=== PATIENT | female | born 1965 | race Caucasian/White ===

== ENCOUNTER → 2016-04-04 | Outpatient (CLI) | payer OTHER ==
[~2016-04-04] MED LIST: CHOL1TAB2 PO; CYAN10005 PO; IBUP600T44 PO; LINA1CAP PO; METH500T37 PO; PHEN-601 PO; TAMO20TA47 PO
--- NOTE | 2016-04-04 17:09 | MAMMOGRAPHY REPORT ---
BILATERAL DIGITAL DIAGNOSTIC MAMMOGRAM TOMOSYNTHESIS WITH CAD AND TARGETED RIGHT ULTRASOUND: 04/04/19 17 CLINICAL HISTORY: History of left breast cancer status post lumpectomy. The patient also reports an episode of bloody nipple discharge from the right nipple, which she noticed in the shower one month ago. She has not had any further episodes since then. She denies any palpable lumps. TECHNIQUE: Breast tomosynthesis in addition to standard 2D mammography was performed. Current study was also evaluated with a Computer Aided Detection (CAD) system. Bilateral CC and MLO 2-D and foreign synthesis views and bilateral spot magnification CC and ML views were obtained. COMPARISON: Comparison is made to exams dated: 10/03/2015 mammogram, 09/25/2013 mammogram, 10/28/2014 mammogram, 09/20/2011 mammogram, 09/23/2012 mammogram, and 09/19/2010 mammogram - [facility]. BREAST COMPOSITION: There are scattered areas of fibroglandular density in both breasts. FINDINGS: Again noted are post surgical changes in the left 6:00 breast from prior lumpectomy, incl uding stable density and architectural distortion at the lumpectomy bed. Spot magnification views o f the lumpectomy bed demonstrate a new single coarse calcification at the lumpectomy bed, which like ly represents a dystrophic calcification. A few other punctate benign-appearing calcifications are seen scattered within the left breast. Spot magnification views of the right subareolar breast demo nstrate no suspicious masses or calcifications. The remainder of both breasts are stable compared t o prior exams, without suspicious masses, calcifications, or areas of architectural distortion noted . A linear scar marker denotes a scar on the right 12:00 anterior breast. Small round/oval circums cribed benign-appearing masses in the right breast are stable compared to prior exams, and likely re present cysts. Targeted ultrasound was performed of the right subareolar breast. No intraductal mass or other susp icious sonographic abnormality is evident. A few incidental small anechoic benign simple cysts were seen, including a 3 mm cyst in the right 10:00 subareolar breast and a 4 mm cyst in the right 4:00 subareolar breast. IMPRESSION: ACR-BI-RADS CATEGORY 3: PROBABLY BENIGN, TARGETED ULTRASOUND ACR-BI-RADS CATEGORY 3: MT OBABLY BENIGN 1. Post surgical changes in the left 6:00 breast from prior lumpectomy. A new single coarse calcif ication is seen at the lumpectomy bed which is probably benign and likely represents a dystrophic ca lcification. Recommend follow-up diagnostic mammograms of the left breast in [address] ability. 2. No intraductal mass or other mammographic or sonographic abnormality is seen to explain the one episode of bloody right nipple discharge. Recommend clinical follow-up; if the discharge persists, consider surgical consultation versus bilateral breast MRI for further evaluation. The patient has been verbally notified of the results. Approximately 10% of breast cancers are not detected with mammography. A negative mammographic repor t should not delay biopsy if a clinically suggestive mass is present. Genesis Joseph M.D. ah/:04/04/2016 15:26:33 Business Continuity Management Director: Michael DIAZ)(Raul), [facility] letter sent: Personal History 3 BI-RADS Code: ACR-BI-RADS Category 3: Probably Benign Ultrasound BI-RADS: ACR-BI-RADS Category 3: P robably Benign
== END | disposition home or self-care (01) ==
LOC: C.MAMM 13:51
PROVIDERS: ATTEND Surgery
DX: Z08 Encounter for follow-up examination after completed treatment for malignant neoplasm (principal); Z85.3 Personal history of malignant neoplasm of breast; Z98.890 Other specified postprocedural states; R92.1 Mammographic calcification found on diagnostic imaging of breast

== ENCOUNTER → 2016-10-02 | Outpatient (CLI) | payer OTHER ==
--- NOTE | 2016-10-02 15:51 | MAMMOGRAPHY REPORT ---
UNILATERAL LEFT DIGITAL DIAGNOSTIC MAMMOGRAM TOMOSYNTHESIS WITH CAD: 10/02/2016 CLINICAL HISTORY: 51 year-old woman with a personal history of left breast cancer status post breast conservation treatment. TECHNIQUE: Left breast CC and MLO 2D and tomosynthesis images, spot magnification CC and ML views we re obtained. Current study was also evaluated with a Computer Aided Detection (CAD) system. COMPARISON: Comparison is made to exams dated: 04/04/2016 ultrasound, 04/04/2016 mammogram, 10/03/2015 mammogram, 09/29/2014 mammogram, 09/25/2013 mammogram, and 09/23/2012 mammogram - [facility]. BREAST COMPOSITION: The tissue of the left breast is almost entirely fatty. FINDINGS: There is expected architectural distortion in the 6:00 middle one third of the left breast, at the site of prior lumpectomy. Currently, there are 3 microcalcifications near the surgical site. The largest coarse calcification along the posterior aspect of the distortion is stable compared to the prior spot magnification views performed on 04/04/2016. 2 new faint punctate microcalcification s are currently identified. However, the morphology is different from the patient's biopsy proven ca ncer. These calcifications are most likely dystrophic, but another short interval follow-up diagnost ic mammogram including spot magnification views is recommended to ensure longer stability. No other new suspicious mass, architectural distortion, developing asymmetry or microcalcifications are seen i n the left breast. IMPRESSION: ACR-BI-RADS CATEGORY 3: PROBABLY BENIGN Expected post treatment changes in the left breast, with 3 benign-appearing round and punctate microc alcifications near the surgical site. These are most likely dystrophic, but given 2 of calcification s are new compared to prior exams, a short interval follow-up diagnostic mammogram including spot mag nification views is recommended to ensure stability in 6 months. Annual right mammography will also be due at that time. These results and recommendations were discussed with the patient at the time of the exam. Approximately 10% of breast cancers are not detected with mammography. A negative mammographic report should not delay biopsy if a clinically suggestive mass is present. Edith Byrne M.D. ay/:10/02/2016 15:07:41 Hospice Plan Administrator: Lina FERGUSON(Erlin)(M), [facility] letter sent: Follow Up Recommended 3 BI-RADS Code: ACR-BI-RADS Category 3: Probably Benign
== END | disposition home or self-care (01) ==
LOC: C.MAMM 13:46
PROVIDERS: ATTEND Surgery
DX: R92.0 Mammographic microcalcification found on diagnostic imaging of breast (principal)

== ENCOUNTER → 2016-10-30 | Outpatient (CLI) | payer OTHER ==
[2016-10-30 13:55] VITALS: BP 114/74; PULSE 94; TEMP 37; O2SAT 97
--- NOTE | 2016-10-30 17:10 | Radiation Oncology Follow-Up ---
Radiation Oncology Follow-Up Date of Visit Oct 30, 2016. Reason For Visit Annual follow-up Radiation Completion Date finished 04-01-2015 Diagnosis (1) Breast cancer Status: Resolved Onset Date: 10/28/2014 Histology Subtype: ductal Stage: l Permanent Comment: DIAGNOSIS: Left breast, invasive ductal carcinoma, grade 2, ER/NM positive, Her2 negative, [id number], stage IA Abnormal left breast mammogram 09/29/2014 Status post stereotactic biopsy 10/28/2014 Status post wide local excision 12/01/2014 Status post sentinel lymph node biopsy 12/28/2014 Status post completion of radiation therapy 04/01/2015 received 6640 cGy Last Edited By: Sadaf Kumar on Apr 14, 2015 10:38 History of Present Illness Ms Cavazos is a 49-year-old female who initially had an abnormal mammogram on which showed a faint cluster of microcalcifications in the 6 o'clock position, middle one third of the left breast. She underwent a unilateral left diagnostic mammogram and ultrasound on 10/13/2014 which showed a 1 cm group of punctate and amorphous calcifications in the left breast at 6:00. She underwent a stereotactic biopsy on 10/28/2014 which revealed lobular carcinoma in situ and microcalcifications. She underwent a wide local excision on 12/01/2014 to rule out any evidence of cancer; surprisingly, pathology revealed a 1.5 mm invasive ductal carcinoma that was grade 2. Pathology revealed no evidence of lymphovascular space invasion however there was ductal carcinoma in situ measuring at least 6 mm. The margins were negative with the closest margin for invasive ductal carcinoma being 2 mm and the closest margin for ductal carcinoma in situ being [address] Campo took the patient back to the OR on 12/28/2014 for sentinel lymph node biopsy which revealed no evidence of metastatic breast cancer to the lymph nodes. Dr. Campo has ordered Prosigna study which Could not be performed due to insufficient amount of tissue. The patient is also being referred to Dr. Delgadillo regarding hormonal therapy and potentially chemotherapy. We are now seeing the patient in consultation regarding the role of adjuvant radiation therapy. She did not require chemotherapy. He completed radiation therapy 04/01/2015 and received 6640 cGy Interim History She's been doing well over this past year. She denies any changes to her breast. She is noted no masses or tenderness no change in the axilla. She's had no swelling of her arm. She is up-to-date on mammography. She had been tried on 2 anti-estrogen therapy medications. These unfortunately had side effects. She had nausea. She had associated joint pain and discomfort. She also had hot flashes. Decision was made to stop antiestrogen therapy. Allergies Coded Allergies: Anastrozole (Unverified Allergy, Intermediate, fingers and feet edema rash , 11/02/15) Tamoxifen (Verified Allergy, Intermediate, SHORTNESS OF BREATH, 10/30/16) swelling of hands and feet , and nausea Codeine (Unverified Allergy, Mild, Nausea/vomiting, 01/18/15) Home Medications Scheduled Cholecalciferol (Vitamin D-3), 1,000 PO DAILY Cyanocobalamin (Vitamin B-12), 1,000 MCG PO DAILY Linaclotide (Linzess), 1 TAB PO DAILY Scheduled PRN Ibuprofen (Motrin), 600 MG PO TID PRN for Pain Methocarbamol (Robaxin), 500 MG PO TID PRN for Muscle Spasms Phenylephrine W/ Acetaminophen (Tylenol Sinus Congestion), 1-2 TAB PO Q6H PRN for Nasal Congestion Review of Systems Gastrointestinal: Symptoms: Constipation GI Comments: "chronic constipation takes meds " Oral: Symptoms: No Problems Respiratory: Symptoms: SOB At Rest, SOB With Exertion Other Respiratory: " occ has trouble taking a deep breath " Urinary: Symptoms: WNL Skin: Symptoms: No Problems Other Skin Symptoms: slight discoloration - darker Breast: Right Upper Arm Measurement: 36.5 Right Mid Arm Measurement: 29.0 Right Wrist Measurement: 17.0 Left Upper Arm Measurement: 35.5 Left Mid Arm Measurement: 27.5 Left Wrist Measurement: 16.8 Arm Dominence: Right Patient Cosmetic Evaluation: Excellent Staff Cosmetic Evalaluation: Excellent Physical Exam Vital Signs Date Time Temp Pulse Resp B/P (MAP) Pulse Ox O2 Delivery O2 Flow Rate FiO2 10/30/16 13:55 37.0 94 16 114/74 97 Pain: Pain Onset: 6-7 months ago Pain Duration: intermet Side: Right Pain Location: Breast Patient Pain Scale: 0 - 10 Initial Pain Intensity: 5.0 Pain Description: Radiating Additional Comments: gets worse at times Fatigue: None General Appearance: no apparent distress Eyes: normal inspection, EOMI ENT: normal ENT inspection, hearing grossly normal Neck: no adenopathy, thyroid normal Respiratory/Chest: lungs clear, no respiratory distress, no accessory muscle use (6) Cardiovascular: regular rate, rhythm, no gallop, no murmur Extremities: non-tender Neurologic/Psychiatric: no motor/sensory deficits, alert, normal mood/affect Skin: warm/dry Additional Studies Patient: AMARILIS CAVAZOS [facility] Rec: [id number] Address1: [address] Address2: Acct ID: [id number] Date: 1965 Sex: F Ref Phy: Vanessa Rebollar D.O. Att Phy: Snehal Campo MD Rabia Phy: Vanessa Rebollar D.O. Inter Phy: Edith Byrne MD [facility] Zip: [place] [address] SC: C.MAMM Report #: [id number] Workers Compensation Claims Assistant: SUMAYA Diagnosis: 6 MO F/U Service Date: 10/02/16 MNE: [id number] Ordering Dr: Snehal Campo MD CC: Snehal Campo MD CONF: DICTATED BY: Edith Byrne MD MAMMOGRAPHY REPORT UNILATERAL LEFT DIGITAL DIAGNOSTIC MAMMOGRAM TOMOSYNTHESIS WITH CAD: 10/02/2016 CLINICAL HISTORY: 51 year-old woman with a personal history of left breast cancer status post breast conservation treatment. TECHNIQUE: Left breast CC and MLO 2D and tomosynthesis images, spot magnification CC and ML views were obtained. Current study was also evaluated with a Computer Aided Detection (CAD) system. COMPARISON: Comparison is made to exams dated: 04/04/2016 ultrasound, 04/04/2016 mammogram, 10/03/2015 mammogram, 09/29/2014 mammogram, 09/25/2013 mammogram, and mammogram - [facility]. BREAST COMPOSITION: The tissue of the left breast is almost entirely fatty. FINDINGS: There is expected architectural distortion in the 6:00 middle one third of the left breast, at the site of prior lumpectomy. Currently, there are 3 microcalcifications near the surgical site. The largest coarse calcification along the posterior aspect of the distortion is stable compared to the prior spot magnification views performed on 04/04/2016. 2 new faint punctate microcalcifications are currently identified. However, the morphology is different from the patient's biopsy proven cancer. These calcifications are most likely dystrophic, but another short interval follow-up diagnostic mammogram including spot magnification views is recommended to ensure longer stability. No other new suspicious mass, architectural distortion, developing asymmetry or microcalcifications are seen in the left breast. IMPRESSION: ACR-BI-RADS CATEGORY 3: PROBABLY BENIGN Expected post treatment changes in the left breast, with 3 benign-appearing round and punctate microcalcifications near the surgical site. These are most likely dystrophic, but given 2 of calcifications are new compared to prior exams , a short interval follow-up diagnostic mammogram including spot magnification views is recommended to ensure stability in 6 months. Annual right mammography will also be due at that time. These results and recommendations were discussed with the patient at the time of the exam. Approximately 10% of breast cancers are not detected with mammography. A negative mammographic report should not delay biopsy if a clinically suggestive mass is present. Edith Byrne M.D. ay/:10/02/2016 15:07:41 It Help Desk Manager: Lina DIAZ)(Raul), [facility] letter sent: Follow Up Recommended 3 BI-RADS Code: ACR-BI-RADS Category 3: Probably Benign Dictated by: Edith Byrne MD Signed by: Edith Byrne MD Assessment & Plan Plan: The patient was seen and examined by Dr. Singer. Continue with mammography. She has a mammogram scheduled for March. Continue regular follow-up with Dr. Delgadillo, Dr. Campo, and Dr. Rebollar. We asked her to return to our office in 1 year. She may call she has a questions or concerns in the interim. ADDENDUM: I agree with note created by Sadaf Kumar PA-C. I reviewed the patient's chart and information with her. I have examined and evaluated the patient. I reviewed relevant clinical information and answered the patient's and /or family's questions. COLLECTION CORRESPONDENT Total Time In Follow-Up I spent 20 minutes speaking to the patient and performing examination. I spent 15 minutes reviewing information and completing this note. AK I spent 15 minutes examining and counseling the patient. COLLECTION CORRESPONDENT Copy To Snehal Campo MD; Vanessa Rebollar D.O.; Remington Delgadillo M.D. Problem Qualifiers (1) Breast cancer: Breast location: central portion of breast Estrogen receptor status: positive Patient sex: female Laterality: left Qualified Codes: C50.112 - Malignant neoplasm of central portion of left female breast; Z17.0 - Estrogen receptor positive status [ER+]
== END | disposition home or self-care (01) ==
LOC: C.ONC 13:49
PROVIDERS: ATTEND Physician Assistant Medical
DX: Z08 Encounter for follow-up examination after completed treatment for malignant neoplasm (principal); Z92.3 Personal history of irradiation; Z85.3 Personal history of malignant neoplasm of breast

== ENCOUNTER → 2017-04-04 | Outpatient (CLI) | payer OTHER ==
[~2017-04-04] MED LIST changes: -TAMO20TA47 PO
--- NOTE | 2017-04-05 13:25 | MAMMOGRAPHY REPORT ---
BILATERAL DIGITAL DIAGNOSTIC MAMMOGRAM TOMOSYNTHESIS WITH CAD: 04/04/2017 CLINICAL HISTORY: History of left breast cancer status post lumpectomy. The patient presents for fol low-up of left breast calcifications at the surgical bed. Due for routine mammography of the right b reast. The patient reports no current complaints. TECHNIQUE: Breast tomosynthesis in addition to standard 2D mammography was performed. Current study was also evaluated with a Computer Aided Detection (CAD) system. Bilateral CC and MLO 2-D and tomosy nthesis images and spot magnification left CC and ML views were obtained. COMPARISON: Comparison is made to exams dated: 10/02/2016 mammogram, 04/04/2016 ultrasound, 04/04/2016 mammogram, 10/03/2015 mammogram, 10/28/2014 mammogram, and 10/28/2014 stereotactic biopsy - [facility]. BREAST COMPOSITION: The tissue of both breasts is almost entirely fatty. FINDINGS: Again noted are postsurgical changes in the left 6:00/central breast from prior lumpectomy, including density and architectural distortion at the lumpectomy bed. Spot magnification views of t he lumpectomy bed demonstrate a few coarse clearly benign dystrophic calcifications at the surgical b ed, as well as other faint punctate benign-appearing calcifications scattered within the lumpectomy b ed which are probably benign and likely represent dystrophic calcifications from fat necrosis. No villarreal spicious cluster of microcalcifications is seen. The remainder of both breasts are stable compared to prior exams, without suspicious masses, calcific ations, or areas of architectural distortion noted. A linear scar marker denotes a scar on the right rest. Small circumscribed benign-appearing right breast masses are not significantly changed. IMPRESSION: ACR-BI-RADS CATEGORY 3: PROBABLY BENIGN Coarse and punctate benign-appearing calcifications at the lumpectomy bed are probably benign and lik krishna represent dystrophic calcifications from fat necrosis. Recommend follow-up diagnostic tomosynthe sis mammograms of the left breast in 6 months to reevaluate. The patient has been verbally notified of the results. Approximately 10% of breast cancers are not detected with mammography. A negative mammographic report should not delay biopsy if a clinically suggestive mass is present. Genesis Joseph M.D. /:04/04/2017 14:11:37 [employer]at [employer] Operator: Alma Cabello, [facility] letter sent: Follow Up Recommended 3 BI-RADS Code: ACR-BI-RADS Category 3: Probably Benign
== END | disposition home or self-care (01) ==
LOC: C.MAMM 13:40
PROVIDERS: ATTEND Surgery
DX: R92.1 Mammographic calcification found on diagnostic imaging of breast (principal); Z85.3 Personal history of malignant neoplasm of breast

== ENCOUNTER → 2017-10-07 | Outpatient (CLI) | payer OTHER ==
--- NOTE | 2017-10-07 15:43 | MAMMOGRAPHY REPORT ---
UNILATERAL LEFT DIGITAL DIAGNOSTIC MAMMOGRAM TOMOSYNTHESIS WITH CAD: 10/07/2017 CLINICAL HISTORY: 52-year-old woman with a personal history of left breast cancer status post treatme nt presents for continued close follow-up in the left breast given round microcalcifications near the surgical site. TECHNIQUE: Left CC and MLO 2D and tomosynthesis images; spot magnification left CC and ML views were obtained. Current study was also evaluated with a Computer Aided Detection (CAD) system. COMPARISON: Comparison is made to exams dated: 04/04/2017 mammogram, 10/02/2016 mammogram, 04/04/2016 m ammogram, 10/03/2015 mammogram, 10/28/2014 mammogram, and 10/13/2014 mammogram - [facility] nt. BREAST COMPOSITION: The tissue of left breast is almost entirely fatty. FINDINGS: The breast parenchyma is increasingly fatty replaced comparing to the 2014 and prior mammog keila. There is also decreased nodularity of the left breast. There is expected architectural distor tion and density in the 6:00 posterior left breast, representing the surgical scar from prior lumpect savage. Spot magnification views performed over the surgical site demonstrate approximately 6 punctate and round microcalcifications that appears similar to the prior spot magnification views and are mini art increased in number comparing back to the 2017 spot magnification views, most likely represent dystrophic calcification/fat necrosis. When comparing to the magnified views of the malignant calcif ications, the morphology is different and these calcifications are most likely benign. However, anot her six-month follow-up left diagnostic mammogram including spot magnification views is recommended t o ensure longer stability. Annual right mammography will also be due at that time. No other new sharda picious calcifications, masses, asymmetries or unexpected architectural distortion is identified in t he left breast. IMPRESSION: ACR-BI-RADS CATEGORY 3: PROBABLY BENIGN There is no definite mammographic evidence of malignancy in the left breast. A few round and punctat e calcifications near the lumpectomy site in the 6:00 posterior left breast most likely represent srikanth ign dystrophic calcifications and fat necrosis. However, another short interval follow-up left diagn ostic mammogram including spot magnification views is recommended to ensure longer stability. Annual right mammography will also be due at that time. These results and recommendations were discussed with the patient at the time of the exam. She tenta tively scheduled the follow-up appointment prior to leaving our department. Some breast cancers are not detected with mammography. A negative mammographic report should not david y biopsy if a clinically suggestive mass is present. Edith Byrne M.D. ay/:10/07/2017 10:05:44 Education Technician: RT Jose Antonio(R)(M), [facility] letter sent: Follow Up Recommended 3 BI-RADS Code: ACR-BI-RADS Category 3: Probably Benign
== END | disposition home or self-care (01) ==
LOC: C.MAMM 08:50
PROVIDERS: ATTEND Surgery
DX: R92.1 Mammographic calcification found on diagnostic imaging of breast (principal)

== ENCOUNTER 2023-02-07 18:30 | Observation (INO) ==
[2023-02-07 21:44] LABS: Appearance Urine Clear (Clear); Bilirubin Urine Negative (Negative); Blood Urine Negative (Negative); Color Urine Yellow; Glucose Urine UA Negative (Negative); Ketones Urine 3+ (Negative); Leukocyte Esterase Urine Negative (Negative); Nitrite Urine Negative (Negative); Protein Urine Negative (Negative); Specific Gravity Urine 1.017 (1.000-1.030); Urobilinogen Urine Negative (Negative)
[2023-02-07 22:03] LABS: Basophils # (auto) 0.05 K/uL (0.00-0.20); Basophils % (auto) 0.5 %; Eosinophils # (auto) 0.18 K/uL (0.00-0.50); Eosinophils % (auto) 1.7 %; Hemoglobin 14.8 g/dl (12.0-16.0); Immature Granulocytes # (auto) 0.05 K/uL (0.01-0.20); Immature Granulocytes % (auto) 0.5 %; Lymphocytes # (auto) 1.78 K/uL (1.20-3.40); Mean Corpuscular Hemoglobin 28.7 pg (25.0-34.0); Mean Corpuscular Hgb Conc 34.4 g/dL (32.0-36.0); Mean Corpuscular Volume 83.5 fL (80.0-100.0); Mean Platelet Volume 11.8 fL (9.4-12.4); Monocytes % (auto) 6.7 %; Neutrophils # (auto) 7.68 K/uL (1.40-6.50); Neutrophils % (auto) 73.6 %; Platelet Count 283 K/uL (130-400); RDW Coefficient of Variation 13.7 % (11.5-14.5); RDW Standard Deviation 41.7 fL (36.4-46.3); Red Blood Count 5.15 M/uL (4.20-5.40); White Blood Count 10.44 K/ul (4.8-10.8)
[2023-02-07 22:04] LABS: Albumin Globulin Ratio 1.7 (0.9-2); Albumin Level 4.5 gm/dl (3.4-5.0); BUN Creatinine Ratio 17.7 (10-20); Bilirubin,Total 0.8 mg/dl (0.2-1.0); Calcium 9.1 mg/dl (8.6-10.3); Est GFR (Non-African American) 100.1 ml/min; Globulin 2.7 gm/dl (2.5-4.0); Potassium 3.7 mmol/L (3.5-5.1); Total Protein 7.2 gm/dl (6.0-8.3)
[2023-02-07] MEDS ORDERED: SODIUM CHLORIDE 0.9% 1,000 ML IV ONE (23:14)
--- NOTE | 2023-02-07 23:18 | Emergency Department Note ---
Impression & Plan Acute cholecystitis ED Provider Note Name: AMARILIS CA Age: 57 Sex: Female Arrives Via: Walk-In Informant: Patient, ED Provider: Ermias Wallace MD Chief Complaint: Right upper quadrant pain Impression: As per impressions above Medical Decision Making: Pleasant 57-year-old female without significant past medical history arrives for evaluation of right upper quadrant pain over the last few days. To the point where she is having no appetite. Has significant right upper quadrant tenderness palpation though she is declining any strong pain medications though excepted IV Tylenol. Notes pain worse with deep inspiration but she does not have any respiratory distress she is not tachycardic she not hypoxic and she is not at risk for PE DVT. Do not think that CT imaging of the chest is necessary for further evaluation of this right upper quadrant pain. Ultrasound of the right upper quadrant reveals a distended abdomen without clear evidence of cholecystitis. White blood cell count is normal. Unfortunately her exam continues to be concerning for acute cholecystitis. Reviewed with general surgery and plan will be to give some IV antibiotics and monitor overnight. On rechecks patient is slowly feeling improved but continues to still have some right upper quadrant tenderness to palpation. She is able to sleep now though. Given the persistent pain and findings I did discussed with general surgery and they will evaluate her further and plan to take her to the operating room for further evaluation. Triage/Nursing Notes reviewed by Me Differential:Appendicitis, cholecystitis, biliary pathology, pancreatitis, PUD, GERD, PE, dissection, ACS amongst many other pathologies considered Vital Signs: reviewed and remarkable for no significant abnormalities Interventions: Will sign bolus 1 L IV, Mefoxin 2 g IV, Tylenol 1 g IV Labs:ED labs Reviewed by me and remarkable for no significant abnormalities Imaging:As per my informal interpretation a ultrasound of the right upper quadrant reveals a distended gallbladder without significant wall swelling or evidence of stone. Some sludge noted. Confirmed by radiologist see the report for full EKG:As per my interpretation. Indication right upper quadrant pain. Normal sinus rhythm at 90 bpm without ectopy nor ischemia. QTc 428. No previous EKGs for comparison Consults:Dr. Wilhelm of general surgery. Initial discussion via phone plan to monitor throughout the evening. Given persistent pain Dr. Wilhelm reconsulted for further evaluation. Plan: Disposition: Transfer to OR Condition: Good History of Present Illness: 57-year-old female arrives for evaluation of abdominal pain. Patient notes for the last 3 to 4 days gradually worsening right upper quadrant pain. No significant pain with eating but notes she has not had an appetite in the last 1 to 2 days. Denies any fevers, chills, vomiting, back pain, urinary/bowel symptoms, leg swelling, chest pain, shortness of breath or other concerning signs or symptoms. Pain is significantly worse with any movement does note mildly worse with deep inspiration but no respiratory issue otherwise. She did not have any falls, trauma, injuries. She is taken no medication for this. She was seen by acute care today who advised she come to the ER for evaluation. She has no history of gallbladder or appendix issues. She did have a hysterectomy previously. Past Medical History:Breast CA, Depression Home Medications:Bupropion and vitamin D3 Allergies:Nast Sumner and anastrozole, tamoxifen, codeine Vitals:Blood Pressure: 142/88, Pulse 92, RR 18, T 36.5C, O2 97 % on RA Physical Exam: GENERAL: Patient is uncomfortable appearing and in mild distress. Dehydrated appearing RESPIRATORY: No dyspnea. Clear to auscultation and equal bilaterally. CARDIOVASCULAR: Regular rate and rhythm.No murmur appreciated. GASTROINTESTINAL: Moderate right upper quadrant tenderness palpation no peritonitis EXTREMITIES: Normal motion all extremities, no cyanosis, no edema. NEUROLOGIC: Alert and oriented. No focal neurologic deficits appreciated SKIN: No rash, no jaundice, no diaphoresis. PSYCH: Appropriate GCS: 15 ED Course: Times/Reassessments: Observation note: Indication: Abdominal Pain Placed in Observation: 11p on 02/07/23. Observation was necessary in order to perform serial abdominal exams in the setting of acute right upper quadrant pain but unclear workup. History as above in HPI. Discharged from observation to OR at 6a on 02/08/23. Total Observation Time: 7 hrs. Ermias Wallace MD Past Med/Surg History Medical History Pityriasis lichenoides chronica Malignant neoplasm of central portion of left breast in female, estrogen receptor positive (10/28/14) Social History Smoking Status: Never smoker Preferred Language: Frisian Beliefs That Will Affect Care: None Feels Safe at Home: Yes Allergies Allergies Allergy/AdvReac Type Severity Reaction Status Date / Time anastrozole Allergy Intermediate fingers Verified 02/08/23 02:12 and feet edema rash tamoxifen Allergy Intermediate SHORTNESS Verified 02/08/23 02:12 OF BREATH codeine Allergy Mild Nausea/vomi Verified 02/08/23 02:12 ting Home Meds Home Medications Medication Instructions Recorded Confirmed cholecalciferol (vitamin D3) 50 2,000 units PO DAILY 11/05/18 02/08/23 mcg (2,000 unit) capsule erythromycin 500 mg tablet 500 mg PO AMHS 02/08/23 02/08/23 losartan 50 mg tablet 50 mg PO QAM 02/08/23 02/08/23 multivitamin with minerals 1 tab PO DAILY 02/08/23 02/08/23 (Multiple Vitamin-Minerals tablet) vitamin B complex 1 tab PO QAM 02/08/23 02/08/23 Previous Rx's Medication Instructions Recorded oxycodone-acetaminophen 5 mg-325 1 - 2 tab PO .P5p-N4g PRN pain #7 02/08/23 mg tablet tabs Results & Data (ED) Vital Signs Vital Signs - 24 hr 02/07/23 23:06 02/08/23 00:45 02/08/23 02:44 Pulse Rate Pulse Rate [Right Finger] 92 H 86 79 Pulse Rate from SpO2 Sensor Respiratory Rate 18 16 18 Respiratory Effort / Characteristics Non-Labored Non-Labored Non-Labored Respiratory Depth Normal Normal Normal Respiratory Pattern Blood Pressure Blood Pressure [Right Arm] 142/88 H 158/94 H 147/96 H Blood Pressure Mean Blood Pressure Mean [Right Arm] 106 115 113 Blood Pressure Position [Right Arm] Lying Lying Lying Pulse Oximetry 97 98 97 Oxygen Delivery Method Room Air Room Air Room Air 02/08/23 04:00 02/08/23 05:00 02/08/23 06:00 Pulse Rate 76 Pulse Rate [Right Finger] 74 76 Pulse Rate from SpO2 Sensor Respiratory Rate 20 18 Respiratory Effort / Characteristics Non-Labored Non-Labored Respiratory Depth Normal Normal Respiratory Pattern Regular Regular Blood Pressure Blood Pressure [Right Arm] 113/79 145/80 H Blood Pressure Mean Blood Pressure Mean [Right Arm] 90 101 Blood Pressure Position [Right Arm] Pulse Oximetry 92 98 Oxygen Delivery Method Room Air Room Air 02/08/23 06:00 02/08/23 07:38 Pulse Rate 74 77 Pulse Rate [Right Finger] Pulse Rate from SpO2 Sensor 77 Respiratory Rate 17 16 Respiratory Effort / Characteristics Respiratory Depth Respiratory Pattern Blood Pressure 138/74 149/88 H Blood Pressure [Right Arm] Blood Pressure Mean 95 108 Blood Pressure Mean [Right Arm] Blood Pressure Position [Right Arm] Pulse Oximetry 94 96 Oxygen Delivery Method Room Air Laboratory Data 02/07/23 21:01 02/07/23 21:01 Lab Results 02/07/23 Range/Units 21:01 WBC 10.44 (4.8-10.8) K/ul RBC 5.15 (4.20-5.40) M/uL Hgb 14.8 (12.0-16.0) g/dl Hct 43.0 (37.0-47.0) % MCV 83.5 (80.0-100.0) fL MCH 28.7 (25.0-34.0) pg MCHC 34.4 (32.0-36.0) g/dL RDW Std Deviation 41.7 (36.4-46.3) fL RDW Coeff of Katie 13.7 (11.5-14.5) % Plt Count 283 (130-400) K/uL MPV 11.8 (9.4-12.4) fL Immature Gran % (Auto) 0.5 % Neut % (Auto) 73.6 % Lymph % (Auto) 17.0 % Coffey % (Auto) 6.7 % Eos % (Auto) 1.7 % Baso % (Auto) 0.5 % Neut # (Auto) 7.68 H (1.40-6.50) K/uL Lymph # (Auto) 1.78 (1.20-3.40) K/uL Coffey # (Auto) 0.70 H (0.11-0.59) K/uL Eos # (Auto) 0.18 (0.00-0.50) K/uL Baso # (Auto) 0.05 (0.00-0.20) K/uL Immature Gran # (Auto) 0.05 (0.01-0.20) K/uL Sodium 137 (136-145) mmol/L Potassium 3.7 (3.5-5.1) mmol/L Chloride 102 (98-107) mmol/L Carbon Dioxide 23 (21-32) mmol/L Anion Gap 12 H (3-11) BUN 11 (6-23) mg/dl Creatinine 0.62 (0.6-1.2) mg/dl Est Cr Clr Drug Dosing 108.0 ml/min Est GFR ( Amer) 116.0 ml/min Est GFR (Non-Af Amer) 100.1 ml/min BUN/Creatinine Ratio 17.7 (10-20) Glucose 86 (70-99(Fasting)) mg/dl Calcium 9.1 (8.6-10.3) mg/dl Total Bilirubin 0.8 (0.2-1.0) mg/dl AST 17 (13-39) U/L ALT 22 (7-52) U/L Alkaline Phosphatase 67 (34-104) U/L Total Protein 7.2 (6.0-8.3) gm/dl Albumin 4.5 (3.4-5.0) gm/dl Globulin 2.7 (2.5-4.0) gm/dl Albumin/Globulin Ratio 1.7 (0.9-2) Lipase 6 L (11-82) U/L Urine Color Yellow Urine Appearance Clear (Clear) Urine pH 5.0 (4.5-7.5) Ur Specific [place] 1.017 (1.000-1.030) Urine Protein Negative (Negative) Urine Glucose (UA) Negative (Negative) Urine Ketones 3+ H (Negative) Urine Blood Negative (Negative) Urine Nitrite Negative (Negative) Urine Bilirubin Negative (Negative) Urine Urobilinogen Negative (Negative) Ur Leukocyte Esterase Negative (Negative) Administered Medications Discontinued Medications Bupivacaine HCl/Epinephrine Bitart (Bupivacaine/Epinephrine 0.5% Mpf 1:200,000 30 Ml Vial) Confirm Administered Dose 30 ml .ROUTE .STK-MED ONE Stop: 02/08/23 11:51 Last Admin: 02/08/23 12:38 Dose: 15 ml Documented By: MDD Cefazolin Sodium (Cefazolin 2,000 Mg/15 Ml Iv Push) Confirm Administered Dose 2,000 mg IV .STK-MED ONE Stop: 02/08/23 11:49 Last Admin: 02/08/23 11:54 Dose: Not Given Documented By: TDM Fentanyl Citrate (Fentanyl Citrate Pf 100 Mcg/2 Ml Vial) 25 mcg IV Q5M PRN PRN Reason: PACU Use Only-Pain Stop: 02/08/23 21:36 Last Admin: 02/08/23 13:56 Dose: 25 mcg Documented By: Admin: 02/08/23 13:51 Dose: 25 mcg Documented By: Admin: 02/08/23 13:46 Dose: 25 mcg Documented By: Admin: 02/08/23 13:40 Dose: 25 mcg Documented By: MYRIAM Sodium Chloride (Nss) 1,000 mls @ 999 mls/hr IV .Q1H1M ONE Stop: 02/08/23 00:14 Last Infusion: 02/08/23 00:46 Dose: Infused Documented By: Admin: 02/07/23 23:43 Dose: 999 mls/hr Documented By: SANJIV Acetaminophen (Ofirmev) 1,000 mg in 100 mls @ 400 mls/hr IV NOW STA Stop: 02/08/23 02:28 Last Infusion: 02/08/23 02:39 Dose: Infused Documented By: Admin: 02/08/23 02:20 Dose: 400 mls/hr Documented By: SANJIV Cefoxitin Sodium (Mefoxin) 2,000 mg in 60 mls @ 100 mls/hr IV NOW STA Stop: 02/08/23 02:56 Last Infusion: 02/08/23 03:07 Dose: Infused Documented By: ЕЛЕНА Admin: 02/08/23 02:34 Dose: 100 mls/hr Documented By: SANJIV Lactated Ringer's (Lr) 1,000 mls @ 80 mls/hr IV .[id number] JIM Stop: 03/10/23 06:59 Last Admin: 02/08/23 07:37 Dose: 80 mls/hr Documented By: MARK Sodium Chloride (Nss) 1,000 mls @ 125 mls/hr IV .Q8H JIM Stop: 03/10/23 07:44 Last Admin: 02/08/23 09:05 Dose: Not Given Documented By: MARK Cefazolin Sodium (Ancef 2000mg) 2,000 mg in 15 mls @ 3.75 mls/min IV PREOP ONE; Protocol Stop: 02/08/23 11:49 Last Admin: 02/08/23 12:05 Dose: 3.75 mls/min Documented By: TRIPP Oxycodone HCl (Oxycodone Hcl Ir 5 Mg Tab (Immediate Release)) 5 mg PO Q4H PRN PRN Reason: MODERATE Pain (4,5,6) & Pre PT Stop: 02/22/23 13:01 Last Admin: 02/08/23 14:42 Dose: 5 mg Documented By: FELI Imaging Data Radiologist's Impression: Gallbladder Ultrasound 02/07/23 23:14 Exam(s): US GALLBLADDER EXAM: US Abdomen Limited, Gallbladder CLINICAL HISTORY: Right upper quadrant pain. TECHNIQUE: Real-time ultrasound of the right upper quadrant with image documentation. COMPARISON: No relevant prior studies available. FINDINGS: Liver: The liver measures 18.9 cm. There is increased echogenicity of the parenchyma. No mass. Gallbladder: Mildly distended gallbladder is a non-specific. No cholelithiasis. No ultrasound evidence of acute cholecystitis. Common bile duct: The common bile duct is normal measuring 0.4 cm. No stones. No dilation. Pancreas: The pancreatic head and body are within normal limits. The tail is not visualized due to overlying bowel gas. Right kidney: The right kidney is unremarkable measuring 11.7 cm. IMPRESSION: 1. Hepatomegaly and fatty infiltration of the liver. 2. Mildly distended gallbladder is a non-specific. No cholelithiasis. No ultrasound evidence of acute cholecystitis. Electronically signed by: Betina West MD 02/08/23 01:57 AM Discharge Plan Visit Data Chief Complaint: Abdominal Pain Stated Complaint: REF BY [facility], RT SIDE ABDOMINAL PAIN ED Provider: Ermias Wallace Discharge Problem: Acute cholecystitis Discharge Instructions Interventions: ED Discharge Assessment Last Done: 02/08/23 11:01
--- NOTE | 2023-02-08 01:57 | Ultrasound Report ---
Exam(s): US GALLBLADDER EXAM: US Abdomen Limited, Gallbladder CLINICAL HISTORY: Right upper quadrant pain. TECHNIQUE: Real-time ultrasound of the right upper quadrant with image documentation. COMPARISON: No relevant prior studies available. FINDINGS: Liver: The liver measures 18.9 cm. There is increased echogenicity of the parenchyma. No mass. Gallbladder: Mildly distended gallbladder is a non-specific. No cholelithiasis. No ultrasound evidence of acute cholecystitis. Common bile duct: The common bile duct is normal measuring 0.4 cm. No stones. No dilation. Pancreas: The pancreatic head and body are within normal limits. The tail is not visualized due to overlying bowel gas. Right kidney: The right kidney is unremarkable measuring 11.7 cm. IMPRESSION: 1. Hepatomegaly and fatty infiltration of the liver. 2. Mildly distended gallbladder is a non-specific. No cholelithiasis. No ultrasound evidence of acute cholecystitis. Electronically signed by: Betina West MD 02/08/23 01:57 AM
[2023-02-08] MEDS ORDERED: ACETAMINOPHEN 1,000 MG/100 ML VIAL IV STA (02:14)
[2023-02-08] MEDS ORDERED: cefOXitin 2,000 MG/60 ML BAG IV STA (02:21)
[2023-02-08] MEDS ORDERED: LACTATED RINGER'S 1,000 ML IV SCH (07:00)
--- NOTE | 2023-02-08 07:00 | History & Physical Report ---
Date of Service February 08, 2023 Assessment & Plan (1) Abdominal pain: Plan: Patient is a 57 yo female with a PMH of breast CA with lumpectomy and radiation (2014), HTN, PLC that presents to the [facility] ER with c/o right upper quadrant pain that has been present since Saturday. She reports pain has been getting worse over the course of this week which prompted her to seek care. Denies fever, chills , vomiting, and reports pain an 8/10 which can take her breath away with deep inspiration. Previous surgeries include a open hysterectomy at age 24, and breast lumpectomy. Denies taking blood thinners and has not had anything to eat since last night, but did have a sip of water this AM. Instructed to remain NPO. WBC wnl LFT wnl Gallbladder U/S reading no cholelithiasis or acute cholecystitis however given the patients progression of pain over the this past week it was discussed with the patient that she can be discharged on a course of PO antibiotics and be seen as an outpatient next week with Dr. Wilhelm or proceed with a laparoscopic cholecystectomy. The surgical procedure was explained and the risks were reviewed with the patient to include bleeding, infection, risk of injury to other organs, the need for further surgery, . The patient would like to have a cholecystectomy. Keep NPO added to OR schedule for today with Dr. Wilhelm for a laparoscopic cholecystectomy IV fluids for hydration LR @ 80cc/hr IV antiemetic IV antibiotics pt was given Cefoxitin in the ER IV analgesic s as above. still with RUQ ttp. discussed options/risks ( bleeding/infection/bile duct leak/injury/injury to other organs etc....) questions answered. will proceed with antony lilly today. History of Present Illness Chief Complaint: right upper quadrant abdominal pain Primary Care Provider: Vanessa Rebollar DO Patient is a 57 yo female with a PMH of breast CA with lumpectomy and radiation (2014), HTN, PLC that presents to the [facility] ER with c/o right upper quadrant pain that has been present since Saturday. She reports pain has been getting worse over the course of this week which prompted her to seek care. Denies fever, chills , vomiting, and reports pain an 8/10 which can take her breath away with deep inspiration. Previous surgeries include a open hysterectomy at age 24, and breast lumpectomy. Denies taking blood thinners and has not had anything to eat since last night, but did have a sip of water this AM. Instructed to remain NPO. Allergies Allergy/AdvReac Type Severity Reaction Status Date / Time anastrozole Allergy Intermediate fingers Verified 02/08/23 02:12 and feet edema rash tamoxifen Allergy Intermediate SHORTNESS Verified 02/08/23 02:12 OF BREATH codeine Allergy Mild Nausea/vomi Verified 02/08/23 02:12 ting Home Medications Medication Instructions Recorded Confirmed Type cholecalciferol (vitamin D3) 50 2,000 units PO DAILY 11/05/18 02/08/23 History mcg (2,000 unit) capsule erythromycin 500 mg tablet 500 mg PO AMHS 02/08/23 02/08/23 History losartan 50 mg tablet 50 mg PO QAM 02/08/23 02/08/23 History multivitamin with minerals 1 tab PO DAILY 02/08/23 02/08/23 History (Multiple Vitamin-Minerals tablet) vitamin B complex 1 tab PO QAM 02/08/23 02/08/23 History Past Med/Surg History Medical History Pityriasis lichenoides chronica Malignant neoplasm of central portion of left breast in female, estrogen receptor positive (10/28/14) Social History Smoking Status: Never smoker Preferred Language: Yoruba Beliefs That Will Affect Care: None Feels Safe at Home: Yes Review of Systems Constitutional: no fever and no chills Eyes: + corrective lenses Ear, Nose, Mouth, Throat: as per Subjective / HPI Respiratory: no dyspnea Cardiovascular: no chest pain Gastrointestinal: + abdominal pain and + constipation (chr onic IBS); no nausea and no vomiting Genitourinary: no problem reported Musculoskeletal: no muscle weakness Integumentary: PLC takes erythromycin daily BID Neurologic: no confusion and no memory loss Psychiatric: no problem reported Allergy / Immunological: no problem reported Physical Exam Physical Exam: alert oriented pleasant Constitutional: well developed, healthy appearing, cooperative and comfortable; no acute distress Eyes: PERRL, conjunctivae normal, anicteric sclerae ENMT: external ear and nose normal, oropharynx normal Respiratory: normal respiratory effort and able to speak in complete sentences; no respiratory distress Cardiovascular: Rate/Rhythm: regular rate and regular rhythm Heart Sounds: no murmur Gastrointestinal (Abdomen): Inspection/Auscultation: abdomen normal to inspection and normal bowel sounds; abdomen not distended Percussion/Palpation: + abdomen tender, + guarding (palpation to RUQ) and abdomen soft Musculoskeletal: no cyanosis or clubbing, extremities motor strength 5/5 Neurologic: PERRL, EOMI, accommodation nl, no face palsy, no dysarthria Psychiatric: A+Ox3, euthymic affect Results & Data Results & Data Vital Signs (Past 12 Hours) Vital Signs Pulse Pulse Resp BP BP Pulse Ox O2 Del Method 02/08/23 06:00 74 17 138/74 94 Room Air 02/08/23 06:00 76 02/08/23 05:00 76 18 145/80 H 98 Room Air 02/08/23 04:00 74 20 113/79 92 Room Air 02/08/23 02:44 79 18 147/96 H 97 Room Air 02/08/23 00:45 86 16 158/94 H 98 Room Air 02/07/23 23:06 92 H 18 142/88 H 97 Room Air Diagnostic Findings [place], [place] [phone] Ultrasound Report Patient: AMARILIS CA Admit Date: 02/07/23 MR#: [id number] Address1: [address] [place] [address] Acct ID:[id number] Address2: [place] [address] Date: 1965 [facility] Zip: [place] [address] Age: 57 Location: ED Sex: F Room/Bed: Att Phy: Diagnosis: REF BY -[facility], RT SIDE ABDOMINAL PAIN Rabia Phy: Vanessa Rebollar DO Service Date: 02/07/23 Fam Phy: Interpreting [facility] Ordering Phy: Ermias Wallace M.D. cc: ~ Exam(s): US GALLBLADDER EXAM: US Abdomen Limited, Gallbladder CLINICAL HISTORY: Right upper quadrant pain. TECHNIQUE: Real-time ultrasound of the right upper quadrant with image documentation. COMPARISON: No relevant prior studies available. FINDINGS: Liver: The liver measures 18.9 cm. There is increased echogenicity of the parenchyma. No mass. Gallbladder: Mildly distended gallbladder is a non-specific. No cholelithiasis. No ultrasound evidence of acute cholecystitis. Common bile duct: The common bile duct is normal measuring 0.4 cm. No stones. No dilation. Pancreas: The pancreatic head and body are within normal limits. The tail is not visualized due to overlying bowel gas. Right kidney: The right kidney is unremarkable measuring 11.7 cm. IMPRESSION: 1. Hepatomegaly and fatty infiltration of the liver. 2. Mildly distended gallbladder is a non-specific. No cholelithiasis. No ultrasound evidence of acute cholecystitis. Electronically signed by: Betina West MD 02/08/23 01:57 AM Dictated: 02/08/23156 Transcribed: 02/08/23156 PG Care Time/CCT Total # of Minutes Spent Total Time Spent with Patient: Total time spent is greater than 50% in coordination of care (as documented) at patient's floor/unit and/or counseling patient: Coding Level of Care Code 75808 INT INP/OBS CARE 1/40MIN Diagnoses Abdominal pain R10.9
[2023-02-08] MEDS ORDERED: HYDROmorphone INJ 0.5 MG/0.5 ML SYR IM PRN (07:02)
[2023-02-08] MEDS ORDERED: ONDANSETRON INJ 2 MG/ML 2 ML VIAL IV PRN ×2 (07:02→07:32)
--- OUTSIDE RECORDS SUMMARY | 2023-02-08 07:10 | External Medical Summary | Summary of Care ---
Author Name Unknown Organization [facility] Address [address] [place] [address] Phone [phone] Care Team Providers Care Tax Compliance Agent Name Role Phone Smooth Vanessa Raul DO Primary Care Provider [phone] Reason for Visit * Reason Comments Light treatment NBUVB 718 MJ Encounter Details Date Type Department Care Team (Late st Contact Info) Description 01/10/2023 4:00 PM EDT Nurse Only Dermatology [facility] [address] [place] [address] Sp, Nurse Dermatology [address] [place] [address] Light treatment (NBUVB 715 MJ) Allergies Active Allergy Reactions Criticality Noted Date Comments Codeine Nausea/vomiting,Unkn o wn 08/14/2013 Sumatriptan Edema Other Low 12/30/2015 Swelling in joints Morphine And Related 01/16/2001 Nauseated, stomach pain Tamoxifen Edema Other Low 12/30/2015 Swelling in joints, mood swings, rash documented as of this encounter (statuses as of 01/10/2023) Medications Medication Sig Dispensed Refills Start Date End Date Status ibuprofen (MOTRIN) 800 MG TabletIndications:R ight foot pain Take 1 Tab by mouth 3 times a day. 30 Tab 0 11/09/2016 Active Multiple Vitamins-Minerals (THRIVE FOR LIFE WOMENS) TABS Take by mouth. 0 Active Probiotic Product (PROBIOTIC ACIDOPHILUS BIOBEADS) Capsule Take 1 Cap by mouth three times a day with meals. THRIVE brand probiotic 0 Active Neomycin-Bacitracin -Polymyxin (NEOSPORIN ORIGINAL) 3.5-400-5000 OINT Apply topically to affected area. Apply to affected areas 0 Active Vitamin D 50 MCG (2000 UT) Oral Tablet Take 2,000 Units by mouth daily. 0 Active Vitamin B Complex Oral Tablet Take 1 Tablet by mouth in the morning. 0 Active Betamethasone Dipropionate Aug 0.05 % External Cream (Diprolene AF) Apply topically to affected area 2 times a day. Apply to rash/bumps on extremities 50 g 3 12/19/2020 Active lamoTRIgine 150 MG Oral Tablet (LaMICtal) Take 1 Tablet by mouth in the morning. 30 Tablet 1 05/09/2022 Active Additional Information Patient not taking.Reported on 11/26/2022 Erythromycin Base 500 MG Oral TabletIndications:E ncounter for therapeutic drug monitoring Take 1 Tablet by mouth in the morning and 1 Tablet before bedtime. Until gone.. 180 Tablet 3 08/10/2022 Active Losartan Potassium 50 MG Oral Tablet (Cozaar)Indications :HTN, goal below 130/80 Take 1 Tablet by mouth in the morning. 30 Tablet 8 09/14/2022 Active documented as of this encounter (statuses as of 01/10/2023) Active Problems Problem Noted Date Diagnosed Date Elevated hemoglobin 05/07/2022 Nail breaking 09/08/2020 Moderate episode of recurrent major depressive d isorder 08/03/2020 CODEY (generalized anxiety disorder) 08/03/2020 Left knee pain 08/03/2020 Right shoulder pain 08/03/2020 Pityriasis lichenoides chronica 04/21/2019 Prediabetes 02/16/2019 Overview: Per Prediabetes protocol Breast cancer, left 01/24/2015 Cancer Staging:Clinical stage from 01/24/2015:Stage IA(T1a, N0, M0) - Signed by Remington Delgadillo MD on 01/24/2015 Pathologic: Unsigned Irritable bowel syndrome 11/20/2005 documented as of this encounter (statuses as of 01/10/2023) Resolved Problems Problem Noted Date Diagnosed Date Resolved Date 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 Family history of ischemic heart disease 02/25/2004 04/14/2020 ADJ DISORDER W/DEPRES MOOD 05/03/2000 0 04/14/2020 Overview: No psychologist, psychiatrist Female genital symptoms 01/01/200006/2020 Overview: ICD-10 update of inactive term Menopause 06/03/1998 04/14/2020 documented as of this encounter (statuses as of 01/10/2023) Immunizations Name Administration Dates Next Due COVID-19 mRNA, LNP-s, No Pre serve, 2-Dose Series (Moderna) 08/30/2020,08/03/2020 TDAP (age 10 and older)(Boostrix) 10/08/2017 TDAP (age 11 and older)(Adacel) 07/10/2007 Varicella Zoster Vaccine (Adult) 12/30/2015 Zoster Vaccine Recombinant (Shingrix) 07/06/2021 ,04/27/2021 documented as of this encounter Social History Tobacco Use Types Packs/Day Years Used Date Smoking Tobacco: Former Cigarettes 0.5 10 Q uit: 12/13/2014 Smokeless Tobacco: Never Alcohol Use Standard Drinks/Week Comments Yes 0 (1 standard drink = 0.6 oz pur e alcohol) rare PHQ-2 Answer Date Recorded PHQ Adult Total Score 20 05/25/2021 Hunger Vital Sign Answer Date Recorded Worried About Running Out of Food in the Last Ye ar Never true 11/18/2018 Ran Out of Food in the Last Year Never true 11/18/2018 Sex and Gender Information Value Date Recorded Sex Assigned at Not on file Gender Identity Not on file Sexual Orientation Not on file Job Start Date Occupation Industry Not on file Not on file Not on file documented as of this encounter Nursing Notes * Velma Sandoval LPN - 01/10/2023 3:53 PM EDT No skin reaction from previous treatment. Areas of body covered or protected during treatment: face, eyes, and genitals. Narrow Band UVB 707.5 millijoules. Patient receives treatment once weekly. Narrow Band UVB dose to be increased by 100 millijoules each treatment. It's been 15 days since last treatment so I lowered dosage 1/2 of previous treatment. documented in this encounter Plan of Treatment Upcoming Encounters Date Type Department Care Team (Late st Contact Info) Description 01/14/2023 3:30 PM EST Nurse Only Dermatology [facility] [address] [place] [address] Sp, Nurse Dermatology [address] [place] [address] 01/21/2023 4:00 PM EST Nurse Only Dermatology [facility] [address] [place] [address] Sp, Nurse Dermatology [address] [place] [address] 01/28/2023 4:00 PM EST Nurse Only Dermatology [facility] [address] [place] [address] Sp, Nurse Dermatology [address] [place] [address] 02/04/2023 4:00 PM EST Nurse Only Dermatology [facility] [address] [place] [address] Sp, Nurse Dermatology [address] [place] [address] 02/11/2023 4:00 PM EST Nurse Only Dermatology [facility] [address] [place] [address] Sp, Nurse Dermatology [address] [place] [address] 02/18/2023 4:00 PM EST Nurse Only Dermatology [facility] [address] [place] [address] Sp, Nurse Dermatology [address] [place] [address] 02/25/2023 4:00 PM EST Nurse Only Dermatology [facility] [address] [place] [address] Sp, Nurse Dermatology [address] [place] [address] 03/07/2023 4:00 PM EST Nurse Only Dermatology [facility] [address] [place] [address] Sp, Nurse Dermatology [address] [place] [address] 03/14/2023 4:00 PM EST Nurse Only Dermatology [facility] [address] [place] [address] Sp, Nurse Dermatology [address] [place] [address] 03/18/2023 4:00 PM EST Nurse Only Dermatology [facility] [address] [place] [address] Sp, Nurse Dermatology [address] [place] [address] 03/25/2023 4:00 PM EST Nurse Only Dermatology [facility] [address] [place] [address] Sp, Nurse Dermatology [address] [place] [address] 04/01/2023 4:00 PM EST Nurse Only Dermatology [facility] [address] [place] [address] Sp, Nurse Dermatology [address] [place] [address] 04/08/2023 4:00 PM EST Nurse Only Dermatology [facility] [address] [place] [address] Sp, Nurse Dermatology [address] [place] [address] 04/15/2023 4:00 PM EST Nurse Only Dermatology [facility] [address] [place] [address] Sp, Nurse Dermatology [address] [place] [address] 04/22/2023 4:00 PM EST Nurse Only Dermatology [facility] [address] [place] [address] Sp, Nurse Dermatology [address] [place] [address] 04/29/2023 4:00 PM EST Nurse Only Dermatology [facility] [address] [place] [address] Sp, Nurse Dermatology [address] [place] [address] 05/06/2023 4:00 PM EST Nurse Only Dermatology [facility] [address] [place] [address] Sp, Nurse Dermatology [address] [place] [address] 05/13/2023 4:00 PM EST Nurse Only Dermatology [facility] [address] [place] [address] Sp, Nurse Dermatology [address] [place] [address] 05/20/2023 4:00 PM EDT Nurse Only Dermatology [facility] [address] [place] [address] Sp, Nurse Dermatology [address] [place] [address] 05/27/2023 4:00 PM EDT Office Visit Dermatology [facility] [address] [place] [address] Cesar Wallace MD [address] [place] [address] 05/27/2023 4:00 PM EDT Nurse Only Dermatology [facility] [place] [address] [facility] [place] [address] Sp, Nurse Dermatology [address] [facility] [place] [address] Scheduled Procedures Name Priority Associated Diagnoses Date/Ti me COLONOSCOPY FLEXIBLE PROXIMAL DIAGNOSTIC Recall History of colon polyps Health Maintenance Due Date Last Done Comments Hepatitis B (1 of 3 - 3-dose series) 1965 Depression, Most Recent Score >= 10 (will fire each visit until score < 10) 05/26/2021 05/25/2021 HbA1c 10/16/2022 10/16/2021, 11/2020, 01/20/2019 COVID-19 Vaccine ( season) 2022 08/30/2020, 08/03/2020 Influenza Vaccine (FLU shot) (#1) 2022 Mammogram 05/30/2023 05/29/2022, 05/09, 04/18/2020, Additional history exists COLONOSCOPY-EVERY 5 YRS AGES 18-100 01/24/2025 01/25/2020, 01/25/2020, 07/09/2008 Lipid Panel 10/16/2026 10/16/2021, 12/10, 02/03/2014, Additional history exists DTaP,Tdap,and Td Vaccines (3 - Td or Tdap) 10/09/2027 10/08/2017, 07/10/2007 Zoster Vaccines Completed 07/06/2021, 04/11, 12/30/2015 GARDASIL-HPV IMMUNIZATION SERIES Aged Out No longer eligible based on patient's age to complete this topic MENINGOCOCCAL (MENACTRA/MENVEO) Aged Out No longer eligible based on patient's age to complete this topic Pneumococcal Vaccine: Pediatrics (0 to 5 Years) and At-Risk Patients (6 to 64 Years) Aged Out No longer eligible based on patient's age to complete this topic documented as of this encounter Medical Devices Not on filedocumented as of this encounter Visit Diagnoses Diagnosis Pityriasis lichenoides, chronic- Primary Parapsoriasis documented in this encounter Care Teams Tax Compliance Agent Relationship Specialty Start Date End Date Vanessa Rebollar DO [address] [place] [address] PCP - General Family Medicine 11/09/14 documented as of this encounter
--- OUTSIDE RECORDS SUMMARY | 2023-02-08 07:10 | External Medical Summary | Summary of Care ---
Author Name Unknown Organization [facility] Address [address] [facility] [place] [address] Phone [phone] Care Team Providers Care Lead Generator Name Role Phone Smooth Vanessa Raul DO Primary Care Provider [phone] Reason for Visit * Reason Comments Phototherapy NBUVB 921 mj Encounter Details Date Type Department Care Team (Late st Contact Info) Description 01/21/2023 4:00 PM EST Nurse Only Dermatology [facility] [address] [place] [address] Sp, Nurse Dermatology [address] [place] [address] Phototherapy (NBUVB 921 mj) Allergies Active Allergy Reactions Criticality Noted Date Comments Codeine Nausea/vomiting,Unkn o wn 08/14/2013 Sumatriptan Edema Other Low 12/30/2015 Swelling in joints Morphine And Related 01/16/2001 Nauseated, stomach pain Tamoxifen Edema Other Low 12/30/2015 Swelling in joints, mood swings, rash documented as of this encounter (statuses as of 01/21/2023) Medications Medication Sig Dispensed Refills Start Date [...] as of this encounter (statuses as of 01/21/2023) Active Problems Problem Noted Date Diagnosed Date [...] as of this encounter (statuses as of 01/21/2023) Resolved Problems Problem Noted Date Diagnosed Date [...] as of this encounter (statuses as of 01/21/2023) Immunizations Name Administration Dates Next Due COVID-19 [...] as of this encounter Nursing Notes * Kath Tucker LPN - 01/21/2023 3:50 PM EST No skin reaction from previous treatment. Areas of body covered or protected during treatment: face, eyes, and genitals. Narrow Band UVB 921 millijoules. Patient receives treatment once weekly. Narrow Band UVB dose to be increased by 100 millijoules each treatment. documented in this encounter Plan of Treatment Upcoming Encounters Date Type Department Care Team (Late st Contact Info) Description 01/28/2023 4:00 PM EST Nurse Only Dermatology [facility] [address] [place] [address] Sp, Nurse Dermatology [address] [place] [address] 02/04/2023 4:00 PM EST Nurse Only Dermatology [facility] [address] [place] [address] Sp, Nurse Dermatology [address] [place] [address] 02/11/2023 4:00 PM EST Nurse Only Dermatology [facility] [address] [place] [address] Sp, Nurse Dermatology [address] [place] [address] 02/18/2023 4:00 PM EST Nurse Only Dermatology [facility] [address] [place] [address] Sp, Nurse Dermatology [address] [place] [address] 02/25/2023 4:00 PM EST Nurse Only Dermatology [facility] [address] [place] [address] Sp, Nurse Dermatology [address] [place] [address] 03/07/2023 4:00 PM EST Nurse Only Dermatology [facility] [address] [place] [address] Sp, Nurse Dermatology [address] [place] [address] 03/14/2023 4:00 PM EST Nurse Only Dermatology [facility] [address] [place] [address] Sp, Nurse Dermatology [address] [place] [address] 03/18/2023 4:00 PM EST Nurse Only Dermatology [facility] [address] [place] [address] Sp, Nurse Dermatology [address] [place] [address] 03/25/2023 4:00 PM EST Nurse Only Dermatology [facility] [address] [place] [address] Sp, Nurse Dermatology [address] [place] [address] 04/01/2023 4:00 PM EST Nurse Only Dermatology [facility] [address] [place] [address] Sp, Nurse Dermatology [address] [place] [address] 04/08/2023 4:00 PM EST Nurse Only Dermatology [facility] [address] [place] [address] Sp, Nurse Dermatology [address] [place] [address] 04/15/2023 4:00 PM EST Nurse Only Dermatology [facility] [address] [place] [address] Sp, Nurse Dermatology [address] [place] [address] 04/22/2023 4:00 PM EST Nurse Only Dermatology [facility] [address] [place] [address] Sp, Nurse Dermatology [address] [place] [address] 04/29/2023 4:00 PM EST Nurse Only Dermatology [facility] [address] [place], [place] [address] Sp, Nurse Dermatology [address] [place], [place] [address] 05/06/2023 4:00 PM EST Nurse Only Dermatology [facility] [place] [address] [place], [place] [id number] Sp, Nurse Dermatology [address] [place] [address] 05/13/2023 4:00 PM EST Nurse Only Dermatology [facility] [place] [address] [place] [address] Sp, Nurse Dermatology [address] [place] [address] 05/20/2023 4:00 PM EDT Nurse Only Dermatology [facility] [place] [address] [place] [address] Sp, Nurse Dermatology [address] [place] [address] 05/27/2023 4:00 PM EDT Office Visit Dermatology [facility] [place] [address] [place], [place] [address] Cesar Wallace MD [address] [place], [place] [phone] 05/27/2023 4:00 PM EDT Nurse Only Dermatology [facility] [place] [address] [place], [place] [phone] Sp, Nurse Dermatology [address] [place], [place] [id number] Scheduled Procedures Name Priority Associated Diagnoses Date/Ti me COLONOSCOPY FLEXIBLE PROXIMAL DIAGNOSTIC Recall History of colon polyps Health Maintenance Due Date Last Done Comments Hepatitis B (1 of 3 - 3-dose series) 1965 Depression, Most Recent Score >= 10 (will fire each visit until score < 10) 05/26/2021 05/25/2021 HbA1c 10/16/2022 10/16/2021, 11/2020, 01/20/2019 COVID-19 Vaccine (3 - 2022-24 season) 2022 08/30/2020, 08/03/2020 Influenza Vaccine (FLU [...] Parapsoriasis documented in this encounter Care Teams Lead Generator Relationship Specialty Start Date End Date Vanessa Rebollar DO [address] [place] [address] PCP - General Family Medicine 11/09/14 documented as of this encounter
--- OUTSIDE RECORDS SUMMARY | 2023-02-08 07:10 | External Medical Summary | Summary of Care ---
Author Name Unknown Organization [facility] Address [address] [facility] [place] [address] Phone [phone] Care Team Providers Care Teletypewriter Operator Name Role Phone Smooth Vanessa Raul DO Primary Care Provider [phone] Reason for Visit * Reason Comments Light treatment NBUVB 713 MJ Encounter Details Date Type Department Care Team (Late st Contact Info) Description 01/10/2023 4:00 PM EDT Nurse Only Dermatology [facility] [address] [place] [address] Sp, Nurse Dermatology 200 [facility] [place] [address] Light treatment (NBUVB 71 MJ) Allergies Active Allergy Reactions Criticality Noted [...] 3:30 PM EST Nurse Only Dermatology [facility] [address] [place] [address] Sp, Nurse Dermatology [address] [place] [address] 01/21/2023 4:00 PM EST Nurse Only Dermatology [facility] [address] [place] [address] Sp, Nurse Dermatology [address] [place] [address] 01/28/2023 4:00 PM EST [facility] [address] [place] [address] Sp, Nurse Dermatology [address] [place] [address] 02/04/2023 4:00 PM EST [facility] [address] [place] [address] Sp, Nurse Dermatology [address] [place] [address] 02/11/2023 4:00 PM EST [facility] [address] [place] [address] Sp, Nurse Dermatology [address] [place] [address] 02/18/2023 4:00 PM EST [facility] [address] [place] [address] Sp, Nurse Dermatology [address] [place] [address] 02/25/2023 4:00 PM EST Nurse Only Dermatology [facility] [place] 200 [facility] [place] [address] Sp, Nurse Dermatology [address] [facility] [place] [address] 05/27/2023 4:00 PM EDT Office Visit Dermatology [facility] [address] [facility] [place] [address] Cesar Wallace MD [address] [facility] [place] [address] Scheduled Procedures Name Priority Associated Diagnoses Date/Ti me COLONOSCOPY FLEXIBLE PROXIMAL DIAGNOSTIC Recall History of colon polyps Health Maintenance Due Date Last Done Comments Hepatitis B (1 of 3 - 3-dose series) 1965 Depression, Most Recent Score >= 10 (will fire each visit until score < 10) 05/26/2021 05/25/2021 HbA1c 10/16/2022 10/16/2021, 02/11/2020, 01/20/2019 COVID-19 Vaccine ( season) 2022 08/30/2020, [...] Parapsoriasis documented in this encounter Care Teams Teletypewriter Operator Relationship Specialty Start Date End Date Vanessa Rebollar DO [address] [place] [address] PCP - General Family Medicine 11/09/14 documented as of this encounter
--- OUTSIDE RECORDS SUMMARY | 2023-02-08 07:10 | External Medical Summary | Summary of Care ---
Author Name Unknown Organization [facility] Address [address] [place] [facility] [place] [address] Phone [phone] Care Team Providers Care Gizzard Puller Name Role Phone Smooth Vanessa Raul DO Primary Care Provider [phone] Reason for Visit * Reason Comments Phototherapy NBUVB 1132 mj Encounter Details Date Type Department Care Team (Late st Contact Info) Description 02/04/2023 4:00 PM EST Nurse Only Dermatology [facility] [address] [place] [address] Sp, Nurse Dermatology [address] [place] [address] Phototherapy (NBUVB 1132 mj) Allergies Active Allergy Reactions Criticality Noted Date Comments Codeine Nausea/vomiting,Unkn o wn 08/14/2013 Sumatriptan Edema Other Low 12/30/2015 Swelling in joints Morphine And Related 01/16/2001 Nauseated, stomach pain Tamoxifen Edema Other Low 12/30/2015 Swelling in joints, mood swings, rash documented as of this encounter (statuses as of 02/04/2023) Medications Medication Sig Dispensed Refills Start Date [...] as of this encounter (statuses as of 02/04/2023) Active Problems Problem Noted Date Diagnosed Date [...] as of this encounter (statuses as of 02/04/2023) Resolved Problems Problem Noted Date Diagnosed Date [...] as of this encounter (statuses as of 02/04/2023) Immunizations Name Administration Dates Next Due COVID-19 [...] Nursing Notes * Kath Tucker LPN - 02/04/2023 3:59 PM EST No skin reaction from previous treatment. Areas of body covered or protected during treatment: face, eyes, and genitals. Narrow Band UVB 1132 millijoules. Patient receives treatment once weekly. Narrow Band UVB dose to be increased by 100 millijoules each treatment. Max dose 2000 mj documented in this encounter Plan of Treatment Upcoming Encounters Date Type Department Care Team (Late st Contact Info) Description 02/11/2023 4:00 PM EST Nurse Only Dermatology [facility] [address] [place], [place] [id number] Sp, Nurse Dermatology [address] [place] [address] 02/18/2023 4:00 PM EST Nurse Only Dermatology [facility] [address] [place] [address] Sp, Nurse Dermatology [address] [place] [address] 02/25/2023 4:00 PM EST Nurse Only Dermatology [facility] [address] [place] [address] Sp, Nurse Dermatology [address] [place] [address] 03/07/2023 4:00 PM EST Nurse Only Dermatology [facility] [address] [place] [address] Sp, Nurse Dermatology [address] [place] [address] 03/14/2023 4:00 PM EST Nurse Only Dermatology [facility] [address] [place] [address] Sp, Nurse Dermatology [address] [place] [address] 03/18/2023 4:00 PM EST Nurse Only Dermatology [facility] [address] [place] [address] Sp, Nurse Dermatology [address] [place] [address] 03/25/2023 4:00 PM EST Nurse Only Dermatology [facility] [address] [place] [address] Sp, Nurse Dermatology [address] [place] [address] 04/01/2023 4:00 PM EST Nurse Only Dermatology [facility] [address] [place] [address] Sp, Nurse Dermatology [address] [place] [address] 04/08/2023 4:00 PM EST Nurse Only Dermatology [facility] [address] [place] [address] Sp, Nurse Dermatology [address] [place] [address] 04/15/2023 4:00 PM EST Nurse Only Dermatology [facility] [address] [place] [address] Sp, Nurse Dermatology [address] [place] [address] 04/22/2023 4:00 PM EST Nurse Only Dermatology [facility] [address] [place] [address] Sp, Nurse Dermatology [address] [place] [address] 04/29/2023 4:00 PM EST Nurse Only Dermatology [facility] [address] [place] [address] Sp, Nurse Dermatology [address] [place] [address] 05/06/2023 4:00 PM EST Nurse Only Dermatology [facility] [address] [place] [address] Sp, Nurse Dermatology [address] [place] [address] 05/13/2023 4:00 PM EST Nurse Only Dermatology [place] [address] [place], [place] [phone] Sp, Nurse Dermatology [address] [facility] [place], [place] [id number] 05/20/2023 4:00 PM EDT Nurse Only Dermatology [facility] [place] [address] [place], [place] [address] Sp, Nurse Dermatology 200 [facility] [place] [address] 05/27/2023 4:00 PM EDT Office Visit Dermatology [facility] [place] [address] [place] [id number] Cesar Wallace MD [address] [place], [place] [id number] 05/27/2023 4:00 PM EDT Nurse Only Dermatology [facility] [place] [address] [place] [address] Sp, Nurse Dermatology [address] [facility] [address] [place], [place] [phone] Scheduled Procedures Name Priority Associated Diagnoses Date/Ti [...] Parapsoriasis documented in this encounter Care Teams Gizzard Puller Relationship Specialty Start Date End Date Vanessa Rebollar DO [address] [place] [address] PCP - General Family Medicine 11/09/14 documented as of this encounter
--- OUTSIDE RECORDS SUMMARY | 2023-02-08 07:10 | External Medical Summary | Summary of Care ---
Author Name Unknown Organization [facility] Address [address] [place] [place] [address] Phone [phone] Care Team Providers Care Ship Surveyor Name Role Phone Smooth Vanessa Raul DO Primary Care Provider [phone] Reason for Visit * Reason Comments Light treatment NBUVB 1026 mj Encounter Details Date Type Department Care Team (Late st Contact Info) Description 01/28/2023 4:00 PM EST Nurse Only Dermatology [facility] [address] [place] [address] Sp, Nurse Dermatology 200 [facility] [address] Light treatment (NBUVB 1026 mj) Allergies Active Allergy Reactions Criticality Noted Date Comments Codeine Nausea/vomiting,Unkn o wn 08/14/2013 Sumatriptan Edema Other Low 12/30/2015 Swelling in joints Morphine And Related 01/16/2001 Nauseated, stomach pain Tamoxifen Edema Other Low 12/30/2015 Swelling in joints, mood swings, rash documented as of this encounter (statuses as of 01/28/2023) Medications Medication Sig Dispensed Refills Start Date [...] as of this encounter (statuses as of 01/28/2023) Active Problems Problem Noted Date Diagnosed Date [...] as of this encounter (statuses as of 01/28/2023) Resolved Problems Problem Noted Date Diagnosed Date [...] as of this encounter (statuses as of 01/28/2023) Immunizations Name Administration Dates Next Due COVID-19 [...] as of this encounter Nursing Notes * Tari Wells, MED ASSIST - 01/28/2023 3:47 PM EST No skin reaction from previous treatment. Areas of body covered or protected during treatment: face, eyes, and genitals. Narrow Band UVB 1026 millijoules. Patient receives treatment once weekly. Narrow Band UVB dose to be increased by 100 millijoules each treatment. documented in this encounter Plan of Treatment Upcoming Encounters Date Type Department Care Team (Late st Contact Info) Description 02/04/2023 4:00 PM EST Nurse Only Dermatology [facility] [address] [place] [address] Sp, Nurse Dermatology [address] [place] [address] 02/11/2023 4:00 PM EST Nurse Only Dermatology [facility] [address] [place] [address] Sp, Nurse Dermatology [address] [place] [address] 02/18/2023 4:00 PM EST Nurse Only Dermatology [facility] [address] [place] [address] Sp, Nurse Dermatology [address] [place] [address] 02/25/2023 4:00 PM EST Nurse Only Dermatology [facility] [address] [place] [address] Sp, Nurse Dermatology [address] [place] [address] 03/07/2023 4:00 PM EST Nurse Only Dermatology [facility] [address] [place] [address] Sp, Nurse Dermatology [address] [place] [address] 03/14/2023 4:00 PM EST Nurse Only Dermatology [facility] [address] [place] [address] Sp, Nurse Dermatology [address] [place] [address] 03/18/2023 4:00 PM EST Nurse Only Dermatology [place] [address] [place] [address] Sp, Nurse Dermatology [address] [place] [address] 03/25/2023 4:00 PM EST Nurse Only Dermatology [place] [address] [place] [address] Sp, Nurse Dermatology [address] [place] [address] 04/01/2023 4:00 PM EST Nurse Only Dermatology [place] [address] [place] [address] Sp, Nurse Dermatology [address] [place] [address] 04/08/2023 4:00 PM EST Nurse Only Dermatology [place] [address] [place] [address] Sp, Nurse Dermatology [address] [place] [address] 04/15/2023 4:00 PM EST Nurse Only Dermatology [place] [address] [place] [address] Sp, Nurse Dermatology [address] [place] [address] 04/22/2023 4:00 PM EST Nurse Only Dermatology [place] [address] [place] [address] Sp, Nurse Dermatology [address] [place] [address] 04/29/2023 4:00 PM EST Nurse Only Dermatology [place] [address] [place] [address] Sp, Nurse Dermatology [address] [place] [address] 05/06/2023 4:00 PM EST Nurse Only Dermatology [place] [address] [place], [place] [address] Sp, Nurse Dermatology [address] [place] [address] 05/13/2023 4:00 PM EST Nurse Only Dermatology [facility] [place] [address] [place], [place] [address] Sp, Nurse Dermatology [address] [place] [address] 05/20/2023 4:00 PM EDT Nurse Only Dermatology [facility] [place] [address] [place] [address] Sp, Nurse Dermatology [address] [facility] [place] [address] 05/27/2023 4:00 PM EDT Office Visit Dermatology [facility] [place] [address] [place], [place] [phone] Cesar Wallace MD [address] [place], [place] [address] 05/27/2023 4:00 PM EDT Nurse Only Dermatology [facility] [place] [address] [place], [place] [phone] Sp, Nurse Dermatology [address] [facility] [address] [place], [place] [phone] Scheduled Procedures Name Priority Associated Diagnoses Date/Ti me COLONOSCOPY FLEXIBLE PROXIMAL DIAGNOSTIC Recall History of colon polyps Health Maintenance Due Date Last Done Comments Hepatitis B (1 of 3 - 3-dose series) 1965 Depression, Most Recent Score >= 10 (will fire each visit until score < 10) 05/26/2021 05/25/2021 HbA1c 10/16/2022 10/16/2021, 02/0 11/2020, 01/20/2019 COVID-19 Vaccine ( season) 2022 [...] Parapsoriasis documented in this encounter Care Teams Ship Surveyor Relationship Specialty Start Date End Date Vanessa Rebollar DO [address] [place] [address] PCP - General Family Medicine 11/09/14 documented as of this encounter
--- OUTSIDE RECORDS SUMMARY | 2023-02-08 07:10 | External Medical Summary | Summary of Care ---
Author Name Unknown Organization [facility] Address [address] [facility] [place] [address] Phone [phone] Care Team Providers Care Slot Operations Manager Name Role Phone Smooth Vanessa Raul DO Primary Care Provider [phone] Reason for Visit * Reason Comments Light treatment NBUVB 814 MJ Encounter Details Date Type Department Care Team (Late st Contact Info) Description 01/14/2023 3:30 PM EST Nurse Only Dermatology [facility] [address] [place] [address] Sp, Nurse Dermatology [address] [place] [address] Light treatment (NBUVB 814 MJ) Allergies Active Allergy Reactions Criticality Noted Date Comments Codeine Nausea/vomiting,Unkn o wn 08/14/2013 Sumatriptan Edema Other Low 12/30/2015 Swelling in joints Morphine And Related 01/16/2001 Nauseated, stomach pain Tamoxifen Edema Other Low 12/30/2015 Swelling in joints, mood swings, rash documented as of this encounter (statuses as of 01/14/2023) Medications Medication Sig Dispensed Refills Start Date [...] as of this encounter (statuses as of 01/14/2023) Active Problems Problem Noted Date Diagnosed Date [...] as of this encounter (statuses as of 01/14/2023) Resolved Problems Problem Noted Date Diagnosed Date [...] as of this encounter (statuses as of 01/14/2023) Immunizations Name Administration Dates Next Due COVID-19 [...] Nursing Notes * Velma Sandoval LPN - 01/14/2023 3:19 PM EST No skin reaction from previous treatment. Areas of body covered or protected during treatment: face, eyes, and genitals. Narrow Band UVB 807 millijoules. Patient receives treatment once weekly. Narrow Band UVB dose to be increased by 100 millijoules each treatment. documented in this encounter Plan of Treatment Upcoming Encounters Date Type Department Care Team (Late st Contact Info) Description 01/21/2023 4:00 PM EST Nurse Only Dermatology [facility] [address] [place] [address] Sp, Nurse Dermatology [address] [place] [address] 01/28/2023 4:00 PM EST Nurse Only Dermatology [facility] [place] [address] [place] [address] Sp, Nurse Dermatology [address] [place] [address] 02/04/2023 4:00 PM EST Nurse Only Dermatology [facility] [address] [place] [address] Sp, Nurse Dermatology [address] [place] [address] 02/11/2023 4:00 PM EST Nurse Only Dermatology [facility] [address] [place] [address] Sp, Nurse Dermatology [address] [place] [address] 02/18/2023 4:00 PM EST Nurse Only Dermatology [facility] [address] [place] [address] Sp, Nurse Dermatology [address] [place] [address] 02/25/2023 4:00 PM EST Nurse Only Dermatology [facility] [address] [place] [address] Sp, Nurse Dermatology [address] [place] [address] 03/07/2023 4:00 PM EST Nurse Only Dermatology [place] [address] [place] [address] Sp, Nurse Dermatology [address] [place] [address] 03/14/2023 4:00 PM EST Nurse Only Dermatology [place] [address] [place] [address] Sp, Nurse Dermatology [address] [place] [address] 03/18/2023 4:00 PM EST Nurse Only Dermatology [facility] [address] [place] [address] Sp, Nurse Dermatology [address] [place] [address] 03/25/2023 4:00 PM EST Nurse Only Dermatology [facility] [address] [place] [address] Sp, Nurse Dermatology [address] [place] [address] 04/01/2023 4:00 PM EST Nurse Only Dermatology [facility] [address] [place] [address] Sp, Nurse Dermatology [address] [place] [address] 04/08/2023 4:00 PM EST Nurse Only Dermatology [facility] [address] [place] [address] Sp, Nurse Dermatology [address] [place] [address] 04/15/2023 4:00 PM EST Nurse Only Dermatology [facility] [address] [place] [address] Sp, Nurse Dermatology [address] [place] [address] 04/22/2023 4:00 PM EST Nurse Only Dermatology [place] [place] [address] [place], [place] [address] Sp, Nurse Dermatology [address] [place] [address] 04/29/2023 4:00 PM EST Nurse Only Dermatology [facility] [place] [address] [place] [address] Sp, Nurse Dermatology [address] [place] [address] 05/06/2023 4:00 PM EST Nurse Only Dermatology [facility] [place] [address] [place] [address] Sp, Nurse Dermatology [address] [place] [address] 05/13/2023 4:00 PM EST Nurse Only Dermatology [facility] [place] [address] [place], [place] [address] Sp, Nurse Dermatology [address] [place] [address] 05/20/2023 4:00 PM EDT Nurse Only Dermatology [facility] [place] [address] [place] [address] Sp, Nurse Dermatology [address] [place] [address] 05/27/2023 4:00 PM EDT Office Visit Dermatology [facility] [place] [address] [place] [address] Cesar Wallace MD [address] [place] [address] 05/27/2023 4:00 PM EDT Nurse Only Dermatology [facility] [place] [address] [place] [address] Sp, Nurse Dermatology [address] [place] [address] Scheduled Procedures Name Priority Associated Diagnoses Date/Ti me COLONOSCOPY FLEXIBLE PROXIMAL DIAGNOSTIC Recall History of colon polyps Health Maintenance Due Date Last Done Comments Hepatitis B (1 of 3 - 3-dose series) 1965 Depression, Most Recent Score >= 10 (will fire each visit until score < 10) 05/26/2021 05/25/2021 HbA1c 10/16/2022 10/16/2021, 02/11/2020, 01/20/2019 COVID-19 Vaccine (3 - 2022- season) 2022 08/30/2020, 08/03/2020 Influenza Vaccine (FLU [...] 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
--- OUTSIDE RECORDS SUMMARY | 2023-02-08 07:11 | External Medical Summary | Summary of Care ---
Author Name Unknown Organization [facility] Address [address] [place] [address] Phone [phone] Care Team Providers Care Solution Lead Name Role Phone SmoothVanessa Raul DO Primary Care Provider [phone] Reason for Visit * Reason Comments Light treatment NBUVB 1602 mj Encounter Details Date Type Department Care Team Description 10/25/2022 Nurse Only Dermatology [facility] [address] [place] [address] Sp, Nurse Dermatology 200 [facility] [place] [address] Light treatment (NBUVB 1602 mj ) Allergies Active Allergy Reactions Severity Noted Date Comments Codeine Nausea/vomiting,Unknown 08/14/2013 Sumatriptan Edema Other Low 12/30/2015 Swelling in joints Morphine And Related 01/16/2001 Nauseated, stomach pain Tamoxifen Edema Other Low 12/30/2015 Swelling in joints, mood swings, rash documented as of this encounter (statuses as of 10/25/2022) Medications Medication Sig Dispensed Refills Start Date [...] the morning. 30 Tablet 1 05/09/2022 Active Erythromycin Base 500 MG Oral TabletIndications:E ncounter for therapeutic drug monitoring Take 1 Tablet by mouth in the morning and 1 Tablet before bedtime. Until gone.. 180 Tablet 3 08/10/2022 Active Losartan Potassium 50 MG Oral Tablet (Cozaar)Indications :HTN, goal below 130/80 Take 1 Tablet by mouth in the morning. 30 Tablet 8 09/14/2022 Active documented as of this encounter (statuses as of 10/25/2022) Active Problems Problem Noted Date Elevated hemoglobin 05/07/2022 Nail breaking 09/08/2020 Moderate episode of recurrent major depr essive disorder 08/03/2020 CODEY (generalized anxiety disorder) 08/03 Left knee pain 08/03/2020 Right shoulder pain 08/03/2020 Pityriasis lichenoides chronica 04/21/19 20 Prediabetes 02/16/2019 Overview: Per Prediabetes protocol Breast cancer, left 01/24/2015 Cancer Staging:Clinical stage from 01/24/2015:Stage IA(T1a, N0, M0) - Signed by Remington Delgadillo MD on 01/24/2015 Pathologic: Unsigned Irritable bowel syndrome 11/20/2005 documented as of this encounter (statuses as of 10/25/2022) Resolved Problems Problem Noted Date Resolved Date 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 Family history of ischemic heart disease 004 04/14/2020 ADJ DISORDER W/DEPRES MOOD 05/03/200004/14 Overview: No psychologist, psychiatrist Female genital symptoms 01/01/2000 04/14/19 Overview: ICD-10 update of inactive term Menopause 06/03/1998 04/14/2020 documented as of this encounter (statuses as of 10/25/2022) Immunizations Name Administration Dates Next Due COVID-19 [...] = 0.6 oz pur e alcohol) rare Food Insecurity Answer Date Recorded Within the past 12 months, y ou worried that your food would run out before you got money to buy more. Never true 11/18/2018 Within the past 12 months, t he food you bought just didn't last and you didn't have money to get more. Never true 11/18/2018 Sex Assigned at Date Recorded Not on file Job Start Date Occupation Industry Not on file Not on file Not on file documented as of this encounter Nursing Notes * Nancy Bautista LPN - 10/25/2022 4:02 PM EDT No skin reaction from previous treatment. Areas of body covered or protected during treatment: eyesand genitals. Narrow Band UVB 1600millijoules. Patient receives treatment once weekly. Narrow Band UVB dose to be maintained at 1600 millijoules each treatment. documented in this encounter Plan of Treatment Upcoming Encounters Date Type Specialty Care Team Description 11/01/2022 Nurse Only Dermatology Sp, Nurse Dermatology [address] [place] [id number] 11/08/2022 Nurse Only Dermatology Sp, Nurse Dermatology [address] [place], [place] [address] 11/14/2022 Imaging Cardiac Studies 11/15/2022 Nurse Only Dermatology Sp, Nurse Dermatology [address] [place] [address] 11/22/2022 Nurse Only Dermatology Sp, Nurse Dermatology [address] [place], [place] [address] 11/29/2022 Nurse Only Dermatology Sp, Nurse Dermatology [address] [place], [place] [address] 12/06/2022 Nurse Only Dermatology Sp, Nurse Dermatology [address] [place] [address] 12/13/2022 Nurse Only Dermatology Sp, Nurse Dermatology [address] [place] [address] 12/20/2022 Nurse Only Dermatology Sp, Nurse Dermatology [address] [place] [address] 12/27/2022 Nurse Only Dermatology Sp, Nurse Dermatology [address] [place] [address] 01/03/2023 Nurse Only Dermatology Sp, Nurse Dermatology [address] [place] [address] 01/10/2023 Nurse Only Dermatology Sp, Nurse Dermatology [address] [place] [address] 01/17/2023 Nurse Only Dermatology Sp, Nurse Dermatology [address] [place] [address] 01/24/2023 Nurse Only Dermatology Sp, Nurse Dermatology [address] [place] [address] 02/01/2023 Nurse Only Dermatology Sp, Nurse Dermatology 200 [facility] [place] [address] 02/07/2023 Nurse Only Dermatology Sp, Nurse Dermatology 200 [facility] [place] [address] 02/14/2023 Nurse Only Dermatology Sp, Nurse Dermatology 200 [facility] [place] [address] 02/21/2023 Nurse Only Dermatology Sp, Nurse Dermatology 200 [facility] [place] [address] 02/28/2023 Nurse Only Dermatology Sp, Nurse Dermatology 200 [facility] [place] [address] 03/07/2023 Nurse Only Dermatology Sp, Nurse Dermatology [address] [facility] [place] [address] Scheduled Procedures Name Priority Associated Diagnoses Date/Ti me COLONOSCOPY FLEXIBLE PROXIMAL DIAGNOSTIC Recall History of colon polyps Health Maintenance Due Date Last Done Comments Hepatitis B (1 of 3 - 3-dose series) 1965 COVID-19 Vaccine (3 - Moderna series) 10/25/2020 08/30/2020, 08/03/2020 Depression, Most Recent Score >= 10 (will fire each visit until score < 10) 05/26/2021 05/25/2021 HbA1c 10/16/2022 10/16/2021, 0211/2020, 01/20/2019 Influenza Vaccine (FLU shot) (#1) 2022 Mammogram 05/30/2023 05/29/2022, 05/09, 04/18/2020, Additional history exists COLONOSCOPY-EVERY 5 YRS AGES 18-100 01/24/2025 01/25/2020, 01/25/2020, 07/09/2008 Lipid Panel 10/16/2026 10/16/2021, 12/10, 02/03/2014, Additional history exists DTaP,Tdap,and Td Vaccines (3 - Td or Tdap) 10/09/2027 10/08/2017, 07/10/2007 Hepatitis C Screening Completed 12/23/2019 Zoster Vaccines Completed 07/06/2021, 04/11, 12/30/2015 GARDASIL-HPV [...] of this encounter Visit Diagnoses Diagnosis Pityriasis lichenoides chronica- Primary 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
--- OUTSIDE RECORDS SUMMARY | 2023-02-08 07:11 | External Medical Summary | Summary of Care ---
Author Name Unknown Organization [facility] Address [address] [place] [address] Phone [phone] Care Team Providers Care Hadoop Admin Name Role Phone SmoothVanessa Raul DO Primary Care Provider [phone] Reason for Visit * Reason Comments Light treatment NBUVB 1530 mj Encounter Details Date Type Department Care Team Description 10/18/2022 Nurse Only Dermatology [facility] [address] [place] [address] Sp, Nurse Dermatology [address] [place] [address] Light treatment (NBUVB 1530 mj) Allergies Active Allergy Reactions Severity Noted Date Comments Codeine Nausea/vomiting,Unknown 08/14/2013 Sumatriptan Edema Other Low 12/30/2015 Swelling in joints Morphine And Related 01/16/2001 Nauseated, stomach pain Tamoxifen Edema Other Low 12/30/2015 Swelling in joints, mood swings, rash documented as of this encounter (statuses as of 10/18/2022) Medications Medication Sig Dispensed Refills Start Date [...] as of this encounter (statuses as of 10/18/2022) Active Problems Problem Noted Date Elevated hemoglobin [...] as of this encounter (statuses as of 10/18/2022) Resolved Problems Problem Noted Date Resolved Date [...] as of this encounter (statuses as of 10/18/2022) Immunizations Name Administration Dates Next Due COVID-19 [...] Nursing Notes * Nancy Bautista LPN - 10/18/2022 4:05 PM EDT No skin reaction from previous treatment. Per protocol decrease dose by 2 treatment if last tx 11-14 days. Areas of body covered or protected during treatment: eyes and genitals. Narrow Band UVB 1525millijoules. Patient receives treatment once weekly. Narrow Band UVB dose to be increased by 100 millijoules each treatment. documented in this encounter Plan of Treatment Upcoming Encounters Date Type Specialty Care Team Description 10/25/2022 Nurse Only Dermatology Sp, Nurse Dermatology [address] [place], [place] [address] 11/01/2022 Nurse Only Dermatology Sp, Nurse Dermatology [address] [place], [place] [address] 11/08/2022 Nurse Only Dermatology Sp, Nurse Dermatology [address] [facility] [place] [address] 11/14/2022 Imaging Cardiac Studies 11/15/2022 Nurse Only Dermatology Sp, Nurse Dermatology [address] [facility] [place] [address] 11/22/2022 Nurse Only Dermatology Sp, Nurse Dermatology [address] [facility] [place] [address] 11/29/2022 Nurse Only Dermatology Sp, Nurse Dermatology [address] [place] [address] 12/06/2022 Nurse Only Dermatology Sp, Nurse Dermatology [address] [facility] [place] [address] 12/13/2022 Nurse Only Dermatology Sp, Nurse Dermatology [address] [facility] [place] [address] 12/20/2022 Nurse Only Dermatology Sp, Nurse Dermatology [address] [place] [address] 12/27/2022 Nurse Only Dermatology Sp, Nurse Dermatology [address] [facility] [place] [address] 01/03/2023 Nurse Only Dermatology Sp, Nurse Dermatology [address] [place], [place] [phone] 01/10/2023 Nurse Only Dermatology Sp, Nurse Dermatology [address] [place], [place] [id number] 01/17/2023 Nurse Only Dermatology Sp, Nurse Dermatology [address] [place], [place] [address] 01/24/2023 Nurse Only Dermatology Sp, Nurse Dermatology [address] [place], [place] [address] 02/01/2023 Nurse Only Dermatology Sp, Nurse Dermatology [address] [place], [place] [address] 02/07/2023 Nurse Only Dermatology Sp, Nurse Dermatology [address] [facility] [place], [place] [address] 02/14/2023 Nurse Only Dermatology Sp, Nurse Dermatology [address] [facility] [place] [address] 02/21/2023 Nurse Only Dermatology Sp, Nurse Dermatology [address] [facility] [place] [address] 02/28/2023 Nurse Only Dermatology Sp, Nurse Dermatology [address] [facility] [place] [address] 03/07/2023 Nurse Only Dermatology Sp, Nurse Dermatology [address] [facility] [place] [address] Scheduled Procedures Name Priority Associated Diagnoses Date/Ti me COLONOSCOPY FLEXIBLE PROXIMAL DIAGNOSTIC Recall History of colon polyps Health Maintenance Due Date Last Done Comments Hepatitis B (1 of 3 - 3-dose series) 1965 COVID-19 Vaccine (3 - Moderna series) 10/25/2020 08/30/2020, 08/03/2020 Depression, Most Recent Score >= 10 (will fire each visit until score < 10) 05/26/2021 05/25/2021 HbA1c 10/16/2022 10/16/2021, 02/11/2020, 01/20/2019 Influenza Vaccine (FLU shot) (#1) 2022 [...] 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
--- OUTSIDE RECORDS SUMMARY | 2023-02-08 07:11 | External Medical Summary | Summary of Care ---
Author Name Unknown Organization [facility] Address [address] [facility] [place] [address] Phone [phone] Care Team Providers Care E Commerce Architect Name Role Phone Vanessa Rebollar DO Primary Care Provider [phone] Reason for Visit * Reason Onset Date Comments Health Maintenance 11/26/2022 Encounter Details Date Type Department Care Team Description 11/26/2022 Telephone Family Practice [facility] [address] [place] [address] Vanessa Rebollar DO [address] [place] [address] Health Maintenance Allergies Active Allergy Reactions Severity Noted Date Comments Codeine Nausea/vomiting,Unknown 08/14/2013 Sumatriptan Edema Other Low 12/30/2015 Swelling in joints Morphine And Related 01/16/2001 Nauseated, stomach pain Tamoxifen Edema Other Low 12/30/2015 Swelling in joints, mood swings, rash documented as of this encounter (statuses as of 11/26/2022) Medications Medication Sig Dispensed Refills Start Date [...] as of this encounter (statuses as of 11/26/2022) Active Problems Problem Noted Date Elevated hemoglobin [...] as of this encounter (statuses as of 11/26/2022) Resolved Problems Problem Noted Date Resolved Date [...] as of this encounter (statuses as of 11/26/2022) Immunizations Name Administration Dates Next Due COVID-19 [...] on file documented as of this encounter Miscellaneous Notes * Telephone Encounter - Pushpa Lucas LPN - 11/26/2022 8:59 AM EDT Care Gaps Comprehensive Care Outreach Last Office/Telemedicine Visit: 04/25/2022 (in office), Visit date not found (telemedicine) Next Office Visit: Visit date not found Hemoglobin AIC Results: Lab Results Component Value Date/Time HEMOGLOBIN A1C - [facility] 6.0 (H) 10/16/2021 12:10 PM HEMOGLOBIN A1C - [facility] 6.0 (H) 04/19/2020 12:47 PM HEMOGLOBIN A1C - [facility] 6.0 (H) 01/20/2019 04:34 PM Reviewed Health Maintenance below: Health Maintenance Topic Date Due Hepatitis B (1 of 3 - 3-dose series) Never done COVID-19 Vaccine (3 - Moderna series) 10/25/2020 Depression, Most Recent Score >= 10 (will fire each visit until score < 10) 05/26/2021 HbA1c 10/16/2022 Ov apr Labs add lipid Care Gap Outreach Action Taken: Left message documented in this encounter Plan of Treatment Upcoming Encounters Date Type Specialty Care Team Description 11/26/2022 Nurse Only Dermatology Sp, Nurse Dermatology [facility] [place] [id number] 11/26/2022 Office Visit Dermatology Cesar Wallace MD [address] [facility] [place] [address] 12/06/2022 Nurse Only Dermatology Sp, Nurse Dermatology [address] [facility] [place] [address] 12/13/2022 Nurse Only Dermatology Sp, Nurse Dermatology [address] [facility] [place] [address] 12/20/2022 Nurse Only Dermatology Sp, Nurse Dermatology [address] [facility] [place] [address] 12/27/2022 Nurse Only Dermatology Sp, Nurse Dermatology [address] [facility] [address] [place] [address] 01/03/2023 Nurse Only Dermatology Sp, Nurse Dermatology [address] [facility] [place] [address] 01/10/2023 Nurse Only Dermatology Sp, Nurse Dermatology [address] [place] [address] 01/17/2023 Nurse Only Dermatology Sp, Nurse Dermatology 200 [facility] [place], [place] [address] 01/24/2023 Nurse Only Dermatology Sp, Nurse Dermatology [address] [facility] [place] [address] 02/01/2023 Nurse Only Dermatology Sp, Nurse Dermatology [address] [facility] [place] [address] 02/07/2023 Nurse Only Dermatology Sp, Nurse Dermatology [address] [facility] [place] [address] 02/14/2023 Nurse Only Dermatology Sp, Nurse Dermatology [address] [facility] [place] [address] 02/21/2023 Nurse Only Dermatology Sp, Nurse Dermatology [address] [facility] [place] [address] 02/28/2023 Nurse Only Dermatology Sp, Nurse Dermatology [address] [facility] [place] [address] 03/07/2023 Nurse Only Dermatology Sp, Nurse Dermatology [address] [place] [address] Scheduled Procedures Name Priority Associated Diagnoses Date/Ti me COLONOSCOPY FLEXIBLE PROXIMAL DIAGNOSTIC Recall History of colon polyps Health Maintenance Due Date Last Done Comments Hepatitis B (1 of 3 - 3-dose series) 1965 COVID-19 Vaccine (3 - Moderna series) 10/25/2020 08/30/2020, 08/03/2020 Depression, Most Recent Score >= 10 (will fire each visit until score < 10) 05/26/2021 05/25/2021 HbA1c 10/16/2022 10/16/2021, 11/2020, 01/20/2019 Influenza Vaccine (FLU shot) (#1) 2022 [...] Not on filedocumented as of this encounter Care Teams E Commerce Architect Relationship Specialty Start Date End Date Vanessa Rebollar, DO [address] [place] [address] PCP - General Family Medicine 11/09/14 documented as of this encounter
--- OUTSIDE RECORDS SUMMARY | 2023-02-08 07:11 | External Medical Summary | Summary of Care ---
Author Name Unknown Organization [facility] Address [address] [place] [address] Phone [phone] Care Team Providers Care Android Software Engineer Name Role Phone JenniferVanessa armstrong Raul DO Primary Care Provider [phone] Reason for Visit * Reason Comments Phototherapy Nbuvb mj's given. Encounter Details Date Type Department Care Team Description 10/04/2022 Nurse Only Dermatology [facility] [address] [place] [address] Sp, Nurse Dermatology 200 [place] [address] Phototherapy (Nbuvb mj's given. ) Allergies Active Allergy Reactions Severity Noted Date Comments Codeine Nausea/vomiting,Unknown 08/14/2013 Sumatriptan Edema Other Low 12/30/2015 Swelling in joints Morphine And Related 01/16/2001 Nauseated, stomach pain Tamoxifen Edema Other Low 12/30/2015 Swelling in joints, mood swings, rash documented as of this encounter (statuses as of 10/04/2022) Medications Medication Sig Dispensed Refills Start Date [...] as of this encounter (statuses as of 10/04/2022) Active Problems Problem Noted Date Elevated hemoglobin [...] as of this encounter (statuses as of 10/04/2022) Resolved Problems Problem Noted Date Resolved Date [...] as of this encounter (statuses as of 10/04/2022) Immunizations Name Administration Dates Next Due COVID-19 [...] as of this encounter Nursing Notes * Genesis Wylie LPN - 10/04/2022 3:44 PM EDT Danielle Cavazos 09/18/2022 4:00 PM Nurse Only Description: 56 year old female Provider: Nurse Department: DERMATOLOGY [facility] Notes No notes found. Addendum Notes No notes of this type exist for this encounter. Patient Scans Vitals OB Status Hysterectomy Smoking Status Former Flowsheets (all recorded) Patient Information Row Name Nurse Only from 09/18/2022 in Dermatology [facility] Patient Identification Pt identified using two identifiers by: Self -PW Pain Evaluation Is the pt having any pain related to today's visit? No -PW Fall Evaluation Does pt have a history of falls in the last 6 months? No -PW Will any of the medications or procedures this patient may encounter during their visit put them atincreased risk of a fall? No -PW Does this pt demonstrate any physical impairment or altered mental status that places them at increased risk of fall? No -PW Does patient have improper fitting or poor footwear? No -PW Does patient utilize an assistive device, such as cane, walker, crutches, wheelchair or scooter? No-PW Was the patient or family given the "Preventing Falls at Home" brochure? No -PW Fall precautions in place: No -PW (RETIRED) Does pt have a history of falls in the last month? -- Do any of the medications you are currently taking make you feel lightheaded or dizzy? -- Senior Sales Executive Is the patient having a sensitive exam? No -PW Infectious Disease Screening Has the patient traveled outside the [facility] in the last 3 months? -- Has the patient been near persons or the remains of persons with Ebola -- User Villarreal (r) = Recorded By, (t) = Taken By, (c) = Cosigned By Initials Name Provider Type PW Nancy Bautista LPN -- Questionnaires No completed forms available for this encounter. 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 Patient Instructions None Allergies as of 09/18/2022 Reviewed by Nancy Bautista LPN on 09/18/2022 Noted Reaction Type Reactions Codeine 08/14/2013 Nausea/vomiting [24] Unknown [33] Morphine And Related 01/16/2001 Nauseated, stomach pain Imitrex [sumatriptan] 12/30/2015 Reported By Patient Edema Other [12] Swelling in joints Tamoxifen 12/30/2015 Reported By Patient Edema Other [12] Swelling in joints, mood swings, rash Outpatient Meds as of 09/18/2022 Disp Refills Start End Erythromycin Base 500 MG Oral Tablet 180 Tablet 3 08/10/2022 Sig: Take 1 Tablet by mouth in the morning and 1 Tablet before bedtime. Until gone.. Class: ePrescribing Route: Oral Number of times this order has been changed since signin Order Audit [place] Losartan Potassium 50 MG Oral Tablet (Cozaar) 30 Tablet 8 09/14/2022 Sig: Take 1 Tablet by mouth in the morning. Class: ePrescribing Route: Oral Number of times this order has been changed since signin Order Audit [place] lamoTRIgine 150 MG Oral Tablet (LaMICtal) 30 Tablet 1 05/09/2022 Sig: Take 1 Tablet by mouth in the morning. Class: ePrescribing Route: Oral Number of times this order has been changed since signin Order Audit [place] Betamethasone Dipropionate Aug 0.05 % External Cream (Diprolene AF) 50 g 3 12/19/2020 Sig: Apply topically to affected area 2 times a day. Apply to rash/bumps on extremities Class: ePrescribing Route: Topical Number of times this order has been changed since signin Order Audit [place] Vitamin B Complex Oral Tablet Sig: Take 1 Tablet by mouth in the morning. Class: Historical Route: Oral Number of times this order has been changed since signin Order Audit [place] Vitamin D 50 MCG (1999) Oral Tablet Sig: Take 2,000 Units by mouth daily. Class: Historical Route: Oral Wtppjvya-Qgmpvznuqh-Rqnatwawe (NEOSPORIN ORIGINAL) 3.5-400-5000 OINT Sig: Apply topically to affected area. Apply to affected areas Class: Historical Route: External Probiotic Product (PROBIOTIC ACIDOPHILUS BIOBEADS) Capsule Sig: Take 1 Cap by mouth three times a day with meals. THRIVE brand probiotic Class: Historical Route: Oral Multiple Vitamins-Minerals (THRIVE FOR LIFE WOMENS) TABS Sig: Take by mouth. Class: Historical Route: Oral ibuprofen (MOTRIN) 800 MG Tablet 30 Tab 11/09/2016 Sig: Take 1 Tab by mouth 3 times a day. Class: Over the counter Route: Oral Meds Comments as of 01/14/2020 Taking Amberen for menopause. 07/20/11 Amy Mishra L.P.NJeremy 01/14/2096-Cvgkpkd-6 caps daily for GI tract health Medication Administration History: All administrations No administration data available Medication Review Info Nancy Bautista LPN on 09/18/2022 at 3:49 PM [facility] Interventions Report Diagnoses Codes Comments Pityriasis lichenoides chronica - Primary L41.1 Other Orders Order Order # [id number] Priority Status ACTINOTHERAPY (ULTRAVIOLET LIGHT) [[id number]] - Site on 09/19/22 [id number] Routine --- Standing and Future Orders ACTINOTHERAPY (ULTRAVIOLET LIGHT) [Order # [id number]] Orders released from this standing order: SatSep 19, 2022 4:51 PM by Nancy Bautista LPN [[id number]] Nursing Notes Nancy Bautista LPN at 09/18/22 1549 Status: Signed No skin reaction from previous treatment. Areas of body covered or protected during treatment: face, eyes and genitals. Narrow Band UVB 1618 millijoules. Patient receives treatment twice weekly. Narrow Band UVB dose to be increased by 100 millijoules each treatment. Reason for Visit Light treatment NBUVB 1621 mj Encounter Messages Expand AllCollapse All No messages in this encounter Communication Management Routing History None Patient Information Danielle Cavazos [[id number]] 1965 Female [address] Home Phone [place] [phone] Visit Information Date & Time 09/18/2022 4:00 PM Provider Nurse Dermatology Sp Department Dermatology [facility] Appointment Notes light tx PCP Information Primary Care Provider Vanessa Rebollar, DO Chart Reviewed By MIRYAM Anderson on 09/21/2022 9:20 AM Administrative Information Encounter Classification(s) Referring Provider Visit Indicator None SELF Commercial Indicator Date: Advance Directives Advance Directives Power of Vehicle Painter On File? No On File? No Level Of Service [place] NO CHARGE [[id number]] Authorizing Provider Laurita De Jesus MD [[id number]] Document List Patient/User Signed Documents - This Encounter There is no document attached to this encounter. Encounter Status Signed by Nancy Bautista LPN on 09/19/22 at 4:52 PM Learning Assessment & Patient Education Patient Education No skin reaction from previous treatment. Areas of body covered or protected during treatment: face, eyes and genitals. Narrow Band UVB 818 millijoules. Patient receives treatment twice weekly. Narrow Band UVB dose to be increased by 100 millijoules each treatment. documented in this encounter Plan of Treatment Upcoming Encounters Date Type Specialty Care Team Description 10/18/2022 Nurse Only Dermatology Sp, Nurse Dermatology [address] [facility] [place] [address] 10/25/2022 Nurse Only Dermatology Sp, Nurse Dermatology [address] [place] [address] 11/01/2022 Nurse Only Dermatology Sp, Nurse Dermatology [address] [place] [address] 11/08/2022 Nurse Only Dermatology Sp, Nurse Dermatology [address] [facility] [place] [address] 11/14/2022 Imaging Cardiac Studies 11/15/2022 Nurse Only Dermatology Sp, Nurse Dermatology [address] [place], [place] [address] 11/22/2022 Nurse Only Dermatology Sp, Nurse Dermatology [address] [place] [address] 11/29/2022 Nurse Only Dermatology Sp, Nurse Dermatology [address] [place] [address] 12/06/2022 Nurse Only Dermatology Sp, Nurse Dermatology [address] [place] [address] 12/13/2022 Nurse Only Dermatology Sp, Nurse Dermatology [address] [place] [address] 12/20/2022 Nurse Only Dermatology Sp, Nurse Dermatology [address] [place] [address] 12/27/2022 Nurse Only Dermatology Sp, Nurse Dermatology [address] [place] [address] 01/03/2023 Nurse Only Dermatology Sp, Nurse Dermatology [address] [place] [address] 01/10/2023 Nurse Only Dermatology Sp, Nurse Dermatology [address] [place] [address] 01/17/2023 Nurse Only Dermatology Sp, Nurse Dermatology [address] [place] [address] 01/24/2023 Nurse Only Dermatology Sp, Nurse Dermatology [address] [place] [address] 02/01/2023 Nurse Only Dermatology Sp, Nurse Dermatology [address] [place], [place] [address] 02/07/2023 Nurse Only Dermatology Sp, Nurse Dermatology [facility] [place], [place] [phone] 02/14/2023 Nurse Only Dermatology Sp, Nurse Dermatology [address] [facility], [place] [address] 02/21/2023 Nurse Only Dermatology Sp, Nurse Dermatology [address] [facility] [place], [place] [phone] 02/28/2023 Nurse Only Dermatology Sp, Nurse Dermatology [address] [facility] [place], [place] [phone] 03/07/2023 Nurse Only Dermatology Sp, Nurse Dermatology [address] [facility] [place], [place] [id number] Scheduled Procedures Name Priority Associated Diagnoses Date/Ti [...] 05/25/2021 HbA1c 10/16/2022 10/16/2021, 02/0 11/2020, 01/20/2019 Influenza Vaccine (FLU shot) (#1) [...] Parapsoriasis documented in this encounter Care Teams Android Software Engineer Relationship Specialty Start Date End Date Vanessa Rebollar, DO [address] [place] [address] PCP - General Family Medicine 11/09/14 documented as of this encounter
--- OUTSIDE RECORDS SUMMARY | 2023-02-08 07:11 | External Medical Summary | Summary of Care ---
Author Name Unknown Organization [facility] Address [address] [place] [address] Phone [phone] Care Team Providers Care Long Wall Shear Operator Name Role Phone SmoothVanessa Raul DO Primary Care Provider [phone] Reason for Visit * Reason Comments Phototherapy NBUVB 1517 mj Encounter Details Date Type Department Care Team Description 12/13/2022 Nurse Only Dermatology [facility] [address] [place] [address] Sp, Nurse Dermatology 200 [place] [address] Phototherapy (NBUVB 1517 mj) Allergies Active Allergy Reactions Severity Noted Date Comments Codeine Nausea/vomiting,Unknown 08/14/2013 Sumatriptan Edema Other Low 12/30/2015 Swelling in joints Morphine And Related 01/16/2001 Nauseated, stomach pain Tamoxifen Edema Other Low 12/30/2015 Swelling in joints, mood swings, rash documented as of this encounter (statuses as of 12/13/2022) Medications Medication Sig Dispensed Refills Start Date [...] as of this encounter (statuses as of 12/13/2022) Active Problems Problem Noted Date Elevated hemoglobin [...] as of this encounter (statuses as of 12/13/2022) Resolved Problems Problem Noted Date Resolved Date [...] as of this encounter (statuses as of 12/13/2022) Immunizations Name Administration Dates Next Due COVID-19 [...] Nursing Notes * Kath Tucker LPN - 12/13/2022 3:54 PM EDT No skin reaction from previous treatment. Areas of body covered or protected during treatment: eyes, genitals, and breasts. Narrow Band UVB 1517 millijoules. Patient receives treatment once weekly. Narrow Band UVB dose to be increased by 100 millijoules each treatment. Max dose 1600 mj documented in this encounter Plan of Treatment Upcoming Encounters Date Type Specialty Care Team Description 12/20/2022 Nurse Only Dermatology Sp, Nurse Dermatology [address] [place], [place] [id number] 12/26/2022 Nurse Only Dermatology Sp, Nurse Dermatology [address] [place], [place] [id number] 01/03/2023 Nurse Only Dermatology Sp, Nurse Dermatology [address] [place], [place] [id number] 01/10/2023 Nurse Only Dermatology Sp, Nurse Dermatology [address] [facility] [address] [place] [address] 01/17/2023 Nurse Only Dermatology Sp, Nurse Dermatology [address] [place], [place] [address] 01/24/2023 Nurse Only Dermatology Sp, Nurse Dermatology [address] [place] [id number] 02/01/2023 Nurse Only Dermatology Sp, Nurse Dermatology [address] [place], [place] [id number] 02/07/2023 Nurse Only Dermatology Sp, Nurse Dermatology [address] [place] [address] 02/14/2023 Nurse Only Dermatology Sp, Nurse Dermatology [address] [place] [address] 02/21/2023 Nurse Only Dermatology Sp, Nurse Dermatology [address] [facility] [address] [place] [address] 02/28/2023 Nurse Only Dermatology Sp, Nurse Dermatology [address] [place] [address] 03/07/2023 Nurse Only Dermatology Sp, Nurse Dermatology 200 [place] [address] 05/27/2023 Office Visit Dermatology Cesar Wallace MD 200 [place] [address] Scheduled Procedures Name Priority Associated Diagnoses Date/Ti [...] Parapsoriasis documented in this encounter Care Teams Long Wall Shear Operator Relationship Specialty Start Date End Date Vanessa Rebollar, DO [address] [place] [address] PCP - General Family Medicine 11/09/14 documented as of this encounter
--- OUTSIDE RECORDS SUMMARY | 2023-02-08 07:11 | External Medical Summary | Summary of Care ---
Author Name Unknown Organization [facility] Address [address] [place] [address] Phone [phone] Care Team Providers Care Guide Dog Mobility Instructor Name Role Phone AugustineKymberly black DO Primary Care Provider [phone] Reason for Visit * Reason Comments Follow Up Pt here for 6 month f/u. No new concerns. Encounter Details Date Type Department Care Team Description 11/26/2022 Office Visit Dermatology [facility] [place] [address] [facility] [place] [address] Cesar Wallace MD 200 [place] [address] Pityriasis lichenoides chronica*; Encounter for therapeutic drug monitoring; Xerosis cutis Allergies Active Allergy Reactions Severity Noted Date [...] psychologist, psychiatrist Female genital symptoms 01/01/2000 04/14/19 21 Overview: ICD-10 update of inactive term Menopause [...] on file documented as of this encounter Progress Notes * Cesar Wallace MD - 11/26/2022 4:22 PM EDT SUBJECTIVE: Chief Complaint: Chief Complaint Patient presents with Follow Up Pt here for 6 month f/u. No new concerns. HPI: Danielle Cavazos is a 57 year old female seen for follow up of pityriasis lichenoides chronica. Had it several years. Thought it was bug bites at first. Now doing really well on once weekly lightsand twice daily erythromycin. No noted side effects from the erythromycin Does have dry arms which have worsened since starting light therapy. Uses dove body wash. Tried lots of different moisturizers. No hot showers OBJECTIVE: GEN: Healthy, alert, no distress, appears oriented, pleasant, and cooperative SKIN: Problem focused exam reveals: Few post-inflammatory hyperpigmentated macules hands and right foot ASSESS MENT/PLAN: Pityriasis lichenoides chronica - Doing well on treatment with occasional flares - continue erythromycin 500 BID - continue weekly nbuvb at current dose - has prescription for betamethasone but not needing this Xerosis -Recommend mild soaps such as Dove or Cetaphil -Recommended proper bathing techniques with luke-warm quick showers -Recommended twice daily moisturizing cream such as Cetaphil, CeraVe, Aveeno, Eucerin, Oil of Olay,Neutrogena, or Aquaphor; especially to be applied within 3 min of exiting the shower Cesar Wallace MD Ref: SELF[[id number]] NO STREET ADDRESS AVAILABLE None (office) None (fax) PCP: KYMBERLY [place] [address] [phone] documented in this encounter Nursing Notes * Poppy Deleon LPN - 11/26/2022 4:15 PM EDT Patient identified by full name and date of Chief Complaint Patient presents with Follow Up Pt here for 6 month f/u. No new concerns. documented in this encounter Plan of Treatment Upcoming Encounters Date Type Specialty Care Team Description 12/06/2022 Nurse Only Dermatology Sp, Nurse Dermatology [address] [facility] [place] [address] 12/13/2022 Nurse Only Dermatology Sp, Nurse Dermatology 200 [facility] [place] [address] 12/20/2022 Nurse Only Dermatology Sp, Nurse Dermatology 200 [facility] [place] [address] 12/26/2022 Nurse Only Dermatology Sp, Nurse Dermatology 200 [facility] [place] [address] 01/03/2023 Nurse Only Dermatology Sp, Nurse Dermatology 200 [facility] [place] [address] 01/10/2023 Nurse Only Dermatology Sp, Nurse Dermatology 200 [facility] [place] [address] 01/17/2023 Nurse Only Dermatology Sp, Nurse Dermatology 200 [facility] [place] [address] 01/24/2023 Nurse Only Dermatology Sp, Nurse Dermatology 200 [facility] [place] [address] 02/01/2023 Nurse Only Dermatology Sp, Nurse Dermatology 200 [facility] [place] [address] 02/07/2023 Nurse Only Dermatology Sp, Nurse Dermatology 200 [facility] [place], [place] [phone] 02/14/2023 Nurse Only Dermatology Sp, Nurse Dermatology 200 [facility] [place], [place] [address] 02/21/2023 Nurse Only Dermatology Sp, Nurse Dermatology 200 [facility] [place], [place] [address] 02/28/2023 Nurse Only Dermatology Sp, Nurse Dermatology 200 [facility] [place], [place] [address] 03/07/2023 Nurse Only Dermatology Sp, Nurse Dermatology 200 [facility] [place], [place] [phone] 05/27/2023 Office Visit Dermatology Cesar Wallace MD 200 [facility] [place], [place] [phone] Scheduled Procedures Name Priority Associated Diagnoses Date/Ti [...] Diagnoses Diagnosis Pityriasis lichenoides chronica- Primary Parapsoriasis Encounter for therapeutic drug monitoring Xerosis cutis Other specified disease of sebaceous glands documented in this encounter Care Teams Guide Dog Mobility Instructor Relationship Specialty Start Date End Date Kymberly Caba, DO [address] [place] [address] PCP - General Family Medicine 11/09/14 documented as of this encounter
--- OUTSIDE RECORDS SUMMARY | 2023-02-08 07:11 | External Medical Summary | Summary of Care ---
Author Name Unknown Organization [facility] Address [address] [place] [address] Phone [phone] Care Team Providers Care Plastic Tubing Insulation Supervisor Name Role Phone SmoothVanessa Raul DO Primary Care Provider [phone] Reason for Visit * Reason Comments Light treatment NBUVB 1308 MJ Encounter Details Date Type Department Care Team Description 11/26/2022 Nurse Only Dermatology [facility] [address] [place] [address] Sp, Nurse Dermatology 200 [facility] [place] [address] Light treatment (NBUVB 1308 MJ) Allergies Active Allergy Reactions Severity Noted Date [...] Nursing Notes * Velma Sandoval LPN - 11/26/2022 2:53 PM EDT No skin reaction from previous treatment. Areas of body covered or protected during treatment: eyes, genitals, and breasts. Narrow Band UVB 1308 millijoules. Patient receives treatment once weekly. Narrow Band UVB dose to be increased by 100 millijoules each treatment. Max dose 1600. documented in this encounter Plan of Treatment Upcoming Encounters Date Type Specialty Care Team Description 11/26/2022 Office Visit Dermatology Cesar Wallace MD [address] [place], [place] [phone] 12/06/2022 Nurse Only Dermatology Sp, Nurse Dermatology [address] [place] [address] 12/13/2022 Nurse Only Dermatology Sp, Nurse Dermatology [address] [place] [address] 12/20/2022 Nurse Only Dermatology Sp, Nurse Dermatology [address] [place], [place] [address] 12/27/2022 Nurse Only Dermatology Sp, Nurse Dermatology [address] [place] [address] 01/03/2023 Nurse Only Dermatology Sp, Nurse Dermatology 200 [facility] [place] [address] 01/10/2023 Nurse Only Dermatology Sp, Nurse Dermatology 200 [facility] [place] [address] 01/17/2023 Nurse Only Dermatology Sp, Nurse Dermatology [address] [place] [address] 01/24/2023 Nurse Only Dermatology Sp, Nurse Dermatology 200 [facility] [place] [address] 02/01/2023 Nurse Only Dermatology Sp, Nurse Dermatology 200 [facility] [place] [address] 02/07/2023 Nurse Only Dermatology Sp, Nurse Dermatology [address] [place], [place] [address] 02/14/2023 Nurse Only Dermatology Sp, Nurse Dermatology 200 [facility] [place], [place] [address] 02/21/2023 Nurse Only Dermatology Sp, Nurse Dermatology 200 [facility] [place], [place] [address] 02/28/2023 Nurse Only Dermatology Sp, Nurse Dermatology 200 [facility] [place], [place] [address] 03/07/2023 Nurse Only Dermatology Sp, Nurse Dermatology [address] [facility] [place], [place] [address] Scheduled Procedures Name Priority Associated Diagnoses Date/Ti [...] Diagnoses Diagnosis Pityriasis lichenoides chronica- Primary Parapsoriasis My[employer] Research Other*[id number] documented in this encounter Care Teams Plastic Tubing Insulation Supervisor Relationship Specialty Start Date End Date Vanessa Rebollar, DO [address] [place] [address] PCP - General Family Medicine 11/09/14 documented as of this encounter
--- OUTSIDE RECORDS SUMMARY | 2023-02-08 07:11 | External Medical Summary | Summary of Care ---
Author Name Unknown Organization [facility] Address [address] [place] [address] Phone [phone] Care Team Providers Care Lead Clinical Research Coordinator Name Role Phone SmoothVanessa Raul DO Primary Care Provider [phone] Reason for Visit * Reason Comments Light treatment NBUVB 1620 mj Encounter Details Date Type Department Care Team Description 09/18/2022 Nurse Only Dermatology [facility] [address] [place] [address] Sp, Nurse Dermatology 200 [facility] [address] Light treatment (NBUVB 1627 mj) Allergies Active Allergy Reactions Severity Noted Date Comments Codeine Nausea/vomiting,Unknown 08/14/2013 Sumatriptan Edema Other Low 12/30/2015 Swelling in joints Morphine And Related 01/16/2001 Nauseated, stomach pain Tamoxifen Edema Other Low 12/30/2015 Swelling in joints, mood swings, rash documented as of this encounter (statuses as of 09/19/2022) Medications Medication Sig Dispensed Refills Start Date [...] as of this encounter (statuses as of 09/19/2022) Active Problems Problem Noted Date Elevated hemoglobin [...] as of this encounter (statuses as of 09/19/2022) Resolved Problems Problem Noted Date Resolved Date [...] as of this encounter (statuses as of 09/19/2022) Immunizations Name Administration Dates Next Due COVID-19 [...] Nursing Notes * Nancy Bautista LPN - 09/18/2022 3:49 PM EDT No skin reaction from previous treatment. Areas of body covered or protected during treatment: face, eyes and genitals. Narrow Band UVB 1618 millijoules. Patient receives treatment twice weekly. Narrow Band UVB dose to be increased by 100 millijoules each treatment. documented in this encounter Plan of Treatment Upcoming Encounters Date Type Specialty Care Team Description 09/28/2022 Nurse Only Dermatology Sp, Nurse Dermatology [address] [place], [place] [phone] 10/04/2022 Nurse Only Dermatology Sp, Nurse Dermatology [address] [place], [place] [address] 10/11/2022 Nurse Only Dermatology Sp, Nurse Dermatology [address] [place] [address] 10/18/2022 Nurse Only Dermatology Sp, Nurse Dermatology [address] [facility] [address] [place], [place] [address] 10/25/2022 Nurse Only Dermatology Sp, Nurse Dermatology [address] [place], [place] [address] 11/01/2022 Nurse Only Dermatology Sp, Nurse Dermatology [address] [place] [address] 11/08/2022 Nurse Only Dermatology Sp, Nurse Dermatology [address] [facility] [address] [place], [place] [address] 11/14/2022 Imaging Cardiac Studies 11/15/2022 Nurse Only Dermatology Sp, Nurse Dermatology [address] [facility] [place] [address] 11/22/2022 Nurse Only Dermatology Sp, Nurse Dermatology [address] [place] [address] 11/29/2022 Nurse Only Dermatology Sp, Nurse Dermatology [address] [facility] [address] [place], [place] [address] 12/06/2022 Nurse Only Dermatology Sp, Nurse Dermatology [address] [place], [place] [phone] 12/13/2022 Nurse Only Dermatology Sp, Nurse Dermatology [address] [place] [address] 12/20/2022 Nurse Only Dermatology Sp, Nurse Dermatology [address] [place], [place] [address] 12/27/2022 Nurse Only Dermatology Sp, Nurse Dermatology [address] [place] [address] 01/03/2023 Nurse Only Dermatology Sp, Nurse Dermatology [address] [place] [address] 01/10/2023 Nurse Only Dermatology Sp, Nurse Dermatology [address] [place], [place] [address] 01/17/2023 Nurse Only Dermatology Sp, Nurse Dermatology [address] [place] [address] 01/24/2023 Nurse Only Dermatology Sp, Nurse Dermatology [address] [place] [address] 02/01/2023 Nurse Only Dermatology Sp, Nurse Dermatology [address] [place] [address] 02/07/2023 Nurse Only Dermatology Sp, Nurse Dermatology [address] [place] [address] 02/14/2023 Nurse Only Dermatology Sp, Nurse Dermatology [address] [place] [address] 02/21/2023 Nurse Only Dermatology Sp, Nurse Dermatology [address] [place] [address] 02/28/2023 Nurse Only Dermatology Sp, Nurse Dermatology [address] [place], [place] [address] 03/07/2023 Nurse Only Dermatology Sp, Nurse Dermatology 200 [facility] [place] [address] Scheduled Orders Name Type Priority Associated Diagnoses Orde r Schedule ACTINOTHERAPY (ULTRAVIOLET LIGHT) Procedures Routine Pityriasis lichenoides chronica Other, Please specify in Comments field for 36 Occurrences starting 09/19/2022 until 12/20/2022 Scheduled Procedures Name Priority Associated Diagnoses Date/Ti [...] documented in this encounter Care Teams Lead Clinical Research Coordinator Relationship Specialty Start Date End Date Vanessa Rebollar, DO [address] [place] [address] PCP - General Family Medicine 11/09/14 documented as of this encounter
--- OUTSIDE RECORDS SUMMARY | 2023-02-08 07:11 | External Medical Summary | Summary of Care ---
Author Name Unknown Organization [facility] Address [address] [place] [address] Phone [phone] Care Team Providers Care Process Improvement Manager Name Role Phone AugustineVanessa black DO Primary Care Provider [phone] Encounter Details Date Type Department Care Team Description 11/20/2022 Orders Only Outcomes Research Department [address] [place] [address] Lissette Yen CHRA AGNITiO Research Other*[id number] Allergies Active Allergy Reactions Severity Noted Date Comments Codeine Nausea/vomiting,Unknown 08/14/2013 Sumatriptan Edema Other Low 12/30/2015 Swelling in joints Morphine And Related 01/16/2001 Nauseated, stomach pain Tamoxifen Edema Other Low 12/30/2015 Swelling in joints, mood swings, rash documented as of this encounter (statuses as of 11/20/2022) Medications Medication Sig Dispensed Refills Start Date [...] as of this encounter (statuses as of 11/20/2022) Active Problems Problem Noted Date Elevated hemoglobin [...] as of this encounter (statuses as of 11/20/2022) Resolved Problems Problem Noted Date Resolved Date 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 Family history of ischemic heart disease 004 04/14/2020 ADJ DISORDER W/DEPRES MOOD 05/03/200004/14 Overview: No psychologist, psychiatrist Female genital symptoms 01/01/2000 04/14/19 Overview: ICD-10 update of inactive term Menopause 06/03/1998 04/14/2020 documented as of this encounter (statuses as of 11/20/2022) Immunizations Name Administration Dates Next Due COVID-19 [...] on file documented as of this encounter Plan of Treatment Upcoming Encounters Date Type Specialty Care Team Description 11/20/2022 Imaging Cardiac Studies 11/22/2022 Nurse Only Dermatology Sp, Nurse Dermatology [facility] [place] [address] 11/26/2022 Office Visit Dermatology Cesar Wallace MD 200 [facility] [place] [address] 11/29/2022 Nurse Only Dermatology Sp, Nurse Dermatology 200 [facility] [place] [address] 12/06/2022 Nurse Only Dermatology Sp, Nurse Dermatology [address] [place] [address] 12/13/2022 Nurse Only Dermatology Sp, Nurse Dermatology [address] [place] [address] 12/20/2022 Nurse Only Dermatology Sp, Nurse Dermatology [address] [place] [address] 12/27/2022 Nurse Only Dermatology Sp, Nurse Dermatology [address] [place] [address] 01/03/2023 Nurse Only Dermatology Sp, Nurse Dermatology [address] [place] [address] 01/10/2023 Nurse Only Dermatology Sp, Nurse Dermatology [address] [place] [address] 01/17/2023 Nurse Only Dermatology Sp, Nurse Dermatology [address] [place] [address] 01/24/2023 Nurse Only Dermatology Sp, Nurse Dermatology [address] [place] [address] 02/01/2023 Nurse Only Dermatology Sp, Nurse Dermatology [address] [place] [address] 02/07/2023 Nurse Only Dermatology Sp, Nurse Dermatology [address] [place] [address] 02/14/2023 Nurse Only Dermatology Sp, Nurse Dermatology [address] [place] [address] 02/21/2023 Nurse Only Dermatology Sp, Nurse Dermatology [address] [place] [address] 02/28/2023 Nurse Only Dermatology Sp, Nurse Dermatology 200 [facility] [place], [place] [address] 03/07/2023 Nurse Only Dermatology Sp, Nurse Dermatology 200 [facility] [place] [address] Scheduled Orders Name Type Priority Associated Diagnoses Orde r Schedule MYCODE SUBSEQUENT ADULT Lab Routine MyCode Research Other*[id number] Every 6 Months for 2 Occurrences starting 11/20/2022 until 12/10/2023 Scheduled Procedures Name Priority Associated Diagnoses Date/Ti [...] as of this encounter Visit Diagnoses Diagnosis MyCode Research Other*[id number] documented in this encounter Care Teams Process Improvement Manager Relationship Specialty Start Date End Date Vanessa Rebollar, DO [address] [place] [address] PCP - General Family Medicine 11/09/14 documented as of this encounter
--- OUTSIDE RECORDS SUMMARY | 2023-02-08 07:11 | External Medical Summary | Summary of Care ---
Author Name Unknown Organization [facility] Address [address] [place] [address] Phone [phone] Care Team Providers Care Parts Clerk Name Role Phone AugustineKymberly black DO Primary Care Provider [phone] Reason for Visit * Reason Comments Follow Up Pt here for 6 month f/u. No new concerns. Encounter Details Date Type Department Care Team Description 11/26/2022 Office Visit Dermatology [facility] [place] [address] [facility] [place] [address] Cesar Wallace MD 200 [place] [address] Pityriasis lichenoides chronica*; Encounter for therapeutic drug monitoring; Xerosis cutis Allergies Active Allergy Reactions Severity Noted Date Comments Codeine Nausea/vomiting,Unknown 08/14/2013 Sumatriptan Edema Other Low 12/30/2015 Swelling in joints Morphine And Related 01/16/2001 Nauseated, stomach pain Tamoxifen Edema Other Low 12/30/2015 Swelling in joints, mood swings, rash documented as of this encounter (statuses as of 12/26/2022) Medications Medication Sig Dispensed Refills Start Date [...] as of this encounter (statuses as of 12/26/2022) Active Problems Problem Noted Date Elevated hemoglobin [...] as of this encounter (statuses as of 12/26/2022) Resolved Problems Problem Noted Date Resolved Date [...] as of this encounter (statuses as of 12/26/2022) Immunizations Name Administration Dates Next Due COVID-19 [...] exiting the shower Cesar Wallace MD Ref: [id number]] NO STRE[address] ADDRESS AVAILABLE None (office) None (fax) PCP: KYMBERLY CABA [place] [address] [phone] documented in this encounter Nursing Notes * Poppy Deleon LPN - 11/26/2022 4:15 PM EDT Patient identified by full name and date of Chief Complaint Patient presents with Follow Up Pt here for 6 month f/u. No new concerns. documented in this encounter Plan of Treatment Upcoming Encounters Date Type Specialty Care Team Description 12/26/2022 Nurse Only Dermatology Sp, Nurse Dermatology [address] [place], [place] [address] Light treatment (NBUVB 1421 mj) 01/03/2023 Nurse Only Dermatology Sp, Nurse Dermatology [address] [place] [address] 01/10/2023 Nurse Only Dermatology Sp, Nurse Dermatology 200 [facility] [place], [place] [address] 01/17/2023 Nurse Only Dermatology Sp, Nurse Dermatology 200 [facility] [place], [place] [address] 01/24/2023 Nurse Only Dermatology Sp, Nurse Dermatology 200 [facility] [place], [place] [address] 02/01/2023 Nurse Only Dermatology Sp, Nurse Dermatology 200 [facility] [place], [place] [address] 02/07/2023 Nurse Only Dermatology Sp, Nurse Dermatology 200 [facility] [place], [place] [address] 02/14/2023 Nurse Only Dermatology Sp, Nurse Dermatology 200 [facility] [place], [place] [address] 02/21/2023 Nurse Only Dermatology Sp, Nurse Dermatology 200 [facility] [place], [place] [address] 02/28/2023 Nurse Only Dermatology Sp, Nurse Dermatology 200 [place] [address] 03/07/2023 Nurse Only Dermatology Sp, Nurse Dermatology 200 [place] [address] 05/27/2023 Office Visit Dermatology Cesar Wallace MD 200 [place] [address] Scheduled Procedures Name Priority Associated Diagnoses Date/Ti me COLONOSCOPY FLEXIBLE PROXIMAL DIAGNOSTIC Recall History of colon polyps Health Maintenance Due Date Last Done Comments Hepatitis B (1 of 3 - 3-dose series) 1965 Depression, Most Recent Score >= 10 (will fire each visit until score < 10) 05/26/2021 05/25/2021 HbA1c 10/16/2022 10/16/2021, 11/2020, 01/20/2019 COVID-19 Vaccine (2022- season) 2022 08/30/2020, 08/03/2020 Influenza Vaccine (FLU [...] cutis Other specified disease of sebaceous glands Pityriasis lichenoides, chronic- Primary Parapsoriasis documented in this encounter Care Teams Parts Clerk Relationship Specialty Start Date End Date Kymberly Caba, DO [address] [place] [address] PCP - General Family Medicine 11/09/14 documented as of this encounter
--- OUTSIDE RECORDS SUMMARY | 2023-02-08 07:11 | External Medical Summary | Summary of Care ---
Author Name Unknown Organization [facility] Address [address] [place] [address] Phone [phone] Care Team Providers Care Shaper Set Up Operator Name Role Phone SmoothVanessa Raul DO Primary Care Provider [phone] Reason for Visit * Reason Comments Light treatment NBUVB 1627 mj Encounter Details Date Type Department Care Team Description 09/18/[address] [facility] [address] [place] [address] Sp, Nurse Dermatology 200 [facility] [place] [address] Light treatment (NBUVB 1624 mj) Allergies Active Allergy Reactions Severity Noted Date Comments Codeine Nausea/vomiting,Unknown 08/14/2013 Sumatriptan Edema Other Low 12/30/2015 Swelling in joints Morphine And Related 01/16/2001 Nauseated, stomach pain Tamoxifen Edema Other Low 12/30/2015 Swelling in joints, mood swings, rash documented as of this encounter (statuses as of 09/20/2022) Medications Medication Sig Dispensed Refills Start Date [...] as of this encounter (statuses as of 09/20/2022) Active Problems Problem Noted Date Elevated hemoglobin [...] as of this encounter (statuses as of 09/20/2022) Resolved Problems Problem Noted Date Resolved Date [...] as of this encounter (statuses as of 09/20/2022) Immunizations Name Administration Dates Next Due COVID-19 [...] Dermatology [address] [place], [place] [id number] 10/04/2022 Nurse Only Dermatology Sp, Nurse Dermatology [address] [place], [place] [address] 10/11/2022 Nurse Only Dermatology Sp, Nurse Dermatology [address] [place] [address] 10/18/2022 Nurse Only Dermatology Sp, Nurse Dermatology [address] [facility] [address] [place], [place] [address] 10/25/2022 Nurse Only Dermatology Sp, Nurse Dermatology [address] [place], [place] [address] 11/01/2022 Nurse Only Dermatology Sp, Nurse Dermatology [address] [place] [address] 11/08/2022 Nurse Only Dermatology Sp, Nurse Dermatology [address] [facility] [address] [place], [place] [address] 11/14/2022 Imaging Cardiac Studies 11/15/2022 Nurse Only Dermatology Sp, Nurse Dermatology [address] [facility] [place] [address] 11/22/2022 Nurse Only Dermatology Sp, Nurse Dermatology [address] [place] [address] 11/29/2022 Nurse Only Dermatology Sp, Nurse Dermatology [address] [facility] [address] [place], [place] [address] 12/06/2022 Nurse Only Dermatology Sp, Nurse Dermatology [address] [place], [place] [id number] 12/13/2022 Nurse Only Dermatology Sp, Nurse Dermatology [address] [place] [address] 12/20/2022 Nurse Only Dermatology Sp, Nurse Dermatology [address] [place] [address] 12/27/2022 Nurse Only Dermatology Sp, Nurse Dermatology [address] [place] [address] 01/03/2023 Nurse Only Dermatology Sp, Nurse Dermatology [address] [place] [address] 01/10/2023 Nurse Only Dermatology Sp, Nurse Dermatology [address] [place], [place] [address] 01/17/2023 Nurse Only Dermatology Sp, Nurse Dermatology [address] [place] [address] 01/24/2023 Nurse Only Dermatology Sp, Nurse Dermatology [address] [place] [address] 02/01/2023 Nurse Only Dermatology Sp, Nurse Dermatology [address] [place] [address] 02/07/2023 Nurse Only Dermatology Sp, Nurse Dermatology [address] [place] [address] 02/14/2023 Nurse Only Dermatology Sp, Nurse Dermatology [address] [place] [address] 02/21/2023 Nurse Only Dermatology Sp, Nurse Dermatology [address] [place] [address] 02/28/2023 Nurse Only Dermatology Sp, Nurse Dermatology [address] [place], [place] [address] 03/07/2023 Nurse Only Dermatology Sp, Nurse Dermatology 200 [facility] [place] [address] Scheduled Orders Name Type Priority Associated Diagnoses [...] Parapsoriasis documented in this encounter Care Teams Shaper Set Up Operator Relationship Specialty Start Date End Date Vanessa Rebollar, DO [address] [place] [address] PCP - General Family Medicine 11/09/14 documented as of this encounter
--- OUTSIDE RECORDS SUMMARY | 2023-02-08 07:11 | External Medical Summary | Summary of Care ---
Author Name Unknown Organization [facility] Address [address] [place] [address] Phone [phone] Care Team Providers Care Breaker Unit Assembler Name Role Phone SmoothVanessa Raul DO Primary Care Provider [phone] Reason for Visit * Reason Comments Light treatment NBUVB 1608 mj Encounter Details Date Type Department Care Team Description 11/01/2022 Nurse Only Dermatology [facility] [address] [place] [address] Sp, Nurse Dermatology 200 [facility] [place] [address] Light treatment (NBUVB 1608 mj) Allergies Active Allergy Reactions Severity Noted Date Comments Codeine Nausea/vomiting,Unknown 08/14/2013 Sumatriptan Edema Other Low 12/30/2015 Swelling in joints Morphine And Related 01/16/2001 Nauseated, stomach pain Tamoxifen Edema Other Low 12/30/2015 Swelling in joints, mood swings, rash documented as of this encounter (statuses as of 11/01/2022) Medications Medication Sig Dispensed Refills Start Date [...] as of this encounter (statuses as of 11/01/2022) Active Problems Problem Noted Date Elevated hemoglobin [...] as of this encounter (statuses as of 11/01/2022) Resolved Problems Problem Noted Date Resolved Date [...] as of this encounter (statuses as of 11/01/2022) Immunizations Name Administration Dates Next Due COVID-19 [...] Nursing Notes * Nancy Bautista LPN - 11/01/2022 3:58 PM EDT No skin reaction from previous treatment. Areas of body covered or protected during treatment: eyesand genitals. Narrow Band 1600 mjUVBmillijoules. Patient receives treatment once weekly. Narrow Band UVB dose to be maintained at 1600 millijoules each treatment. documented in this encounter Plan of Treatment Upcoming Encounters Date Type Specialty Care Team Description 11/08/2022 Nurse Only Dermatology Sp, Nurse Dermatology [address] [place] [id number] 11/14/2022 Imaging Cardiac Studies 11/15/2022 Nurse Only Dermatology Sp, Nurse Dermatology [address] [place] [address] 11/22/2022 Nurse Only Dermatology Sp, Nurse Dermatology [address] [place] [address] 11/26/2022 Office Visit Dermatology Cesar Wallace MD [address] [place] [address] 11/29/2022 Nurse Only Dermatology Sp, Nurse Dermatology [address] [place] [address] 12/06/2022 Nurse Only Dermatology Sp, Nurse Dermatology [address] [place] [address] 12/13/2022 Nurse Only Dermatology Sp, Nurse Dermatology [address] [place] [address] 12/20/2022 Nurse Only Dermatology Sp, Nurse Dermatology [address] [place], [place] [address] 12/27/2022 Nurse Only Dermatology Sp, Nurse Dermatology [address] [place], [place] [address] 01/03/2023 Nurse Only Dermatology Sp, Nurse Dermatology [address] [place], [place] [address] 01/10/2023 Nurse Only Dermatology Sp, Nurse Dermatology [address] [place], [place] [address] 01/17/2023 Nurse Only Dermatology Sp, Nurse Dermatology [address] [place], [place] [address] 01/24/2023 Nurse Only Dermatology Sp, Nurse Dermatology [address] [facility] [place], [place] [address] 02/01/2023 Nurse Only Dermatology Sp, Nurse Dermatology [address] [place], [place] [address] 02/07/2023 Nurse Only Dermatology Sp, Nurse Dermatology [address] [facility] [place], [place] [address] 02/14/2023 Nurse Only Dermatology Sp, Nurse Dermatology 200 [facility] [place], [place] [address] 02/21/2023 Nurse Only Dermatology Sp, Nurse Dermatology [address] [facility] [place], [place] [address] 02/28/2023 Nurse Only Dermatology Sp, Nurse Dermatology [address] [facility] [place], [place] [address] 03/07/2023 Nurse Only Dermatology Sp, Nurse Dermatology 200 [facility] [place], [place] [address] Scheduled Procedures Name Priority Associated Diagnoses Date/Ti [...] Parapsoriasis documented in this encounter Care Teams Breaker Unit Assembler Relationship Specialty Start Date End Date Vanessa Rebollar, DO [address] [place] [address] PCP - General Family Medicine 11/09/14 documented as of this encounter
--- OUTSIDE RECORDS SUMMARY | 2023-02-08 07:11 | External Medical Summary | Summary of Care ---
Author Name Unknown Organization [facility] Address [address] [place] [address] Phone [phone] Care Team Providers Care Category Development Analyst Name Role Phone SmoothVanessa Raul DO Primary Care Provider [phone] Reason for Visit * Reason Comments Light treatment NBUVB 1421 mj Encounter Details Date Type Department Care Team Description 12/26/2022 Nurse Only Dermatology [facility] [address] [place] [address] Sp, Nurse Dermatology 200 [facility] [place] [address] Light treatment (NBUVB 1421 mj) Allergies Active Allergy Reactions Severity Noted [...] Notes * Tari Wells, MED ASSIST - 12/26/2022 3:44 PM EDT No skin reaction from previous treatment. Areas of body covered or protected during treatment: face, eyes, and genitals. Narrow Band UVB 1415 millijoules. Patient receives treatment once weekly. Narrow Band UVB dose to be increased by 100 millijoules each treatment. Treatment was reduced per Velma Sandoval due to 13 days since patients last treatment. documented in this encounter Plan of Treatment Upcoming Encounters Date Type Specialty Care Team Description 01/03/2023 Nurse Only Dermatology Sp, Nurse Dermatology [address] [place], [place] [phone] 01/10/2023 Nurse Only Dermatology Sp, Nurse Dermatology 200 [facility] [place] [place] [address] 01/17/2023 Nurse Only Dermatology Sp, Nurse Dermatology 200 [facility] [place] [address] 01/24/2023 Nurse Only Dermatology Sp, Nurse Dermatology [address] [facility] [place] [address] 02/01/2023 Nurse Only Dermatology Sp, Nurse Dermatology 200 [facility] [place] [address] 02/07/2023 Nurse Only Dermatology Sp, Nurse Dermatology [address] [facility] [place] [address] 02/14/2023 Nurse Only Dermatology Sp, Nurse Dermatology [address] [facility] [place] [address] 02/21/2023 Nurse Only Dermatology Sp, Nurse Dermatology [address] [facility] [place] [address] 02/28/2023 Nurse Only Dermatology Sp, Nurse Dermatology 200 [facility] [place], [place] [address] 03/07/2023 Nurse Only Dermatology Sp, Nurse Dermatology 200 [facility] [place], [place] [address] 05/27/2023 Office Visit Dermatology Cesar Wallace MD [address] [place], [place] [address] Scheduled Orders Name Type Priority Associated Diagnoses Orde r Schedule ACTINOTHERAPY (ULTRAVIOLET LIGHT) Procedures Routine Pityriasis lichenoides, chronic Other, Please specify in Comments field for 36 Occurrences starting 12/26/2022 until 03/28/2023 Scheduled Procedures Name Priority Associated Diagnoses Date/Ti [...] Parapsoriasis documented in this encounter Care Teams Category Development Analyst Relationship Specialty Start Date End Date Vanessa Rebollar, DO [address] [place] [address] PCP - General Family Medicine 11/09/14 documented as of this encounter
--- OUTSIDE RECORDS SUMMARY | 2023-02-08 07:11 | External Medical Summary | Summary of Care ---
Author Name Unknown Organization [facility] Address [address] [place] [address] Phone [phone] Care Team Providers Care Hydroelectric Powerplant Supervisor Name Role Phone SmoothVanessa Raul DO Primary Care Provider [phone] Reason for Visit * Reason Comments Phototherapy NBUVB 1600 MJ Encounter Details Date Type Department Care Team Description 11/08/2022 Nurse Only Dermatology [facility] [address] [place] [address] Sp, Nurse Dermatology 200 [facility] [place] [address] Phototherapy (NBUVB 1600 MJ//) Allergies Active Allergy Reactions Severity Noted Date Comments Codeine Nausea/vomiting,Unknown 08/14/2013 Sumatriptan Edema Other Low 12/30/2015 Swelling in joints Morphine And Related 01/16/2001 Nauseated, stomach pain Tamoxifen Edema Other Low 12/30/2015 Swelling in joints, mood swings, rash documented as of this encounter (statuses as of 11/08/2022) Medications Medication Sig Dispensed Refills Start Date [...] as of this encounter (statuses as of 11/08/2022) Active Problems Problem Noted Date Elevated hemoglobin [...] as of this encounter (statuses as of 11/08/2022) Resolved Problems Problem Noted Date Resolved Date [...] as of this encounter (statuses as of 11/08/2022) Immunizations Name Administration Dates Next Due COVID-19 [...] as of this encounter Nursing Notes * Janelle Huizar MED ASSIST - 11/08/2022 3:47 PM EDT No skin reaction from previous treatment. Areas of body covered or protected during treatment: eyesand genitals and breasts. Narrow Band UVB 1600 millijoules. Patient receives treatment once weekly.Narrow Band UVB dose to be maintained at 1600 millijoules each treatment. documented in this encounter Plan of Treatment Upcoming Encounters Date Type Specialty Care Team Description 11/14/2022 Imaging Cardiac Studies 11/15/2022 Nurse Only Dermatology Sp, Nurse Dermatology [address] [place] [phone] 11/22/2022 Nurse Only Dermatology Sp, Nurse Dermatology [address] [place] [address] 11/26/2022 Office Visit Dermatology Cesar Wallace MD 200 [facility] [place] [address] 11/29/2022 Nurse Only Dermatology Sp, Nurse Dermatology [facility] [place] [address] 12/06/2022 Nurse Only Dermatology Sp, Nurse Dermatology [address] [facility] [address] [place], [place] [address] 12/13/2022 Nurse Only Dermatology Sp, Nurse Dermatology 200 [facility] [place] [address] 12/20/2022 Nurse Only Dermatology Sp, Nurse Dermatology [address] [address] 12/27/2022 Nurse Only Dermatology Sp, Nurse Dermatology [address] [facility] [address] [place] [address] 01/03/2023 Nurse Only Dermatology Sp, Nurse Dermatology [address] [place] [address] 01/10/2023 Nurse Only Dermatology Sp, Nurse Dermatology [facility] [place] [address] 01/17/2023 Nurse Only Dermatology Sp, Nurse Dermatology [address] [facility] [address] [place], [place] [phone] 01/24/2023 Nurse Only Dermatology Sp, Nurse Dermatology [address] [facility] [place] [address] 02/01/2023 Nurse Only Dermatology Sp, Nurse Dermatology 200 [facility] [place], [place] [address] 02/07/2023 Nurse Only Dermatology Sp, Nurse Dermatology [address] [facility] [place] [address] 02/14/2023 Nurse Only Dermatology Sp, Nurse Dermatology 200 [facility] [place], [place] [address] 02/21/2023 Nurse Only Dermatology Sp, Nurse Dermatology 200 [facility] [place] [address] 02/28/2023 Nurse Only Dermatology Sp, Nurse Dermatology 200 [facility] [place], [place] [address] 03/07/2023 Nurse Only Dermatology Sp, Nurse Dermatology 200 [facility] [place], [place] [phone] Scheduled Procedures Name Priority Associated Diagnoses Date/Ti [...] Parapsoriasis documented in this encounter Care Teams Hydroelectric Powerplant Supervisor Relationship Specialty Start Date End Date Vanessa Rebollar, DO [address] [place] [address] PCP - General Family Medicine 11/09/14 documented as of this encounter
--- OUTSIDE RECORDS SUMMARY | 2023-02-08 07:11 | External Medical Summary | Summary of Care ---
Author Name Unknown Organization [facility] Address [address] [place] [address] Phone [phone] Care Team Providers Care Acute Care Nurse Name Role Phone SmoothVanessa Raul DO Primary Care Provider [phone] Reason for Visit * Reason Comments Light treatment NBUVB 1308 MJ Encounter Details Date Type Department Care Team Description 11/26/2022 Nurse Only Dermatology [facility] [address] [place] [address] Sp, Nurse Dermatology 200 [facility] [place] [address] Light treatment (NBUVB 1308 MJ) Allergies Active [...] Visit Dermatology Cesar Wallace MD [address] [place], [place] [phone] 12/06/2022 Nurse Only Dermatology Sp, Nurse Dermatology [address] [place] [address] 12/13/2022 Nurse Only Dermatology Sp, Nurse Dermatology [address] [place] [address] 12/20/2022 Nurse Only Dermatology Sp, Nurse Dermatology [address] [place], [place] [address] 12/27/2022 Nurse Only Dermatology Sp, Nurse Dermatology [address] [place] [address] 01/03/2023 Nurse Only Dermatology Sp, Nurse Dermatology 200 [facility] [place] [address] 01/10/2023 Nurse Only Dermatology Sp, Nurse Dermatology 200 [facility] [place] [address] 01/17/2023 Nurse Only Dermatology Sp, Nurse Dermatology [address] [place] [address] 01/24/2023 Nurse Only Dermatology Sp, Nurse Dermatology 200 [facility] [place] [address] 02/01/2023 Nurse Only Dermatology Sp, Nurse Dermatology 200 [facility] [place] [address] 02/07/2023 Nurse Only Dermatology Sp, Nurse Dermatology [address] [place], [place] [address] 02/14/2023 Nurse Only Dermatology Sp, Nurse Dermatology 200 [facility] [place], [place] [address] 02/21/2023 Nurse Only Dermatology Sp, Nurse Dermatology 200 [facility] [place], [place] [address] 02/28/2023 Nurse Only Dermatology Sp, Nurse Dermatology 200 [facility] [place], [place] [id number] 03/07/2023 Nurse Only Dermatology Sp, Nurse Dermatology [facility] [place], [place] [id number] Scheduled Procedures Name Priority Associated Diagnoses Date/Ti [...] Pityriasis lichenoides chronica- Primary Parapsoriasis [employer] Other*[id number] documented in this encounter Care Teams Acute Care Nurse Relationship Specialty Start Date End Date Vanessa Rebollar, DO [address] [place] [address] PCP - General Family Medicine 11/09/14 documented as of this encounter
--- OUTSIDE RECORDS SUMMARY | 2023-02-08 07:11 | External Medical Summary | Summary of Care ---
Author Name Unknown Organization [facility] Address [address] [place] [address] Phone [phone] Care Team Providers Care Central Station Operator Name Role Phone SmoothVanessa Raul FIGUEROA Primary Care Provider [phone] Reason for Visit * Reason Comments Phototherapy NBUVB 1208.0 mj's gi kayleen. Encounter Details Date Type Department Care Team Description 11/22/2022 Nurse Only Dermatology [facility] Mary D [address] [place] [address] Sp, Nurse Dermatology [address] [place] [address] Phototherapy (NBUVB 1208.0 mj's given. ) Allergies Active Allergy Reactions Severity Noted Date Comments Codeine Nausea/vomiting,Unknown 08/14/2013 Sumatriptan Edema Other Low 12/30/2015 Swelling in joints Morphine And Related 01/16/2001 Nauseated, stomach pain Tamoxifen Edema Other Low 12/30/2015 Swelling in joints, mood swings, rash documented as of this encounter (statuses as of 11/22/2022) Medications Medication Sig Dispensed Refills Start Date [...] as of this encounter (statuses as of 11/22/2022) Active Problems Problem Noted Date Elevated hemoglobin [...] as of this encounter (statuses as of 11/22/2022) Resolved Problems Problem Noted Date Resolved Date [...] as of this encounter (statuses as of 11/22/2022) Immunizations Name Administration Dates Next Due COVID-19 [...] Nursing Notes * Genesis Wylie LPN - 11/22/2022 3:55 PM EDT No skin reaction from previous treatment. Areas of body covered or protected during treatment: eyesand genitals and breasts. Narrow Band UVB reduced 25% because patient missed one week. 1208.0 millijoules given. Patient receives treatment once weekly. Narrow Band UVB dose to be increased 100 mj's until maintained at 1600 millijoules each treatment. documented in this encounter Plan of Treatment Upcoming Encounters Date Type Specialty Care Team Description 11/26/2022 Nurse Only Dermatology Sp, Nurse Dermatology [address] [facility] [address] [place], [place] [id number] 11/26/2022 Office Visit Dermatology Cesar Wallace MD [address] [facility] [address] [place], [place] [address] 12/06/2022 Nurse Only Dermatology Sp, Nurse Dermatology [address] [facility] [address] [place], [place] [address] 12/13/2022 Nurse Only Dermatology Sp, Nurse Dermatology [address] [facility] [address] [place], [place] [address] 12/20/2022 Nurse Only Dermatology Sp, Nurse Dermatology [address] [facility] [place] D, [place] [address] 12/27/2022 Nurse Only Dermatology Sp, Nurse Dermatology [address] [facility] [place] D, [place] [address] 01/03/2023 Nurse Only Dermatology Sp, Nurse Dermatology [address] [facility] [address] [place], [place] [address] 01/10/2023 Nurse Only Dermatology Sp, Nurse Dermatology [address] [facility] [address] [place], [place] [address] 01/17/2023 Nurse Only Dermatology Sp, Nurse Dermatology [address] [facility] [address] [place], [place] [address] 01/24/2023 Nurse Only Dermatology Sp, Nurse Dermatology [address] [facility] [address] [place], [place] [address] 02/01/2023 Nurse Only Dermatology Sp, Nurse Dermatology [address] [facility] [place] [address] 02/07/2023 Nurse Only Dermatology Sp, Nurse Dermatology [address] [facility] [place], [place] [address] 02/14/2023 Nurse Only Dermatology Sp, Nurse Dermatology [address] [place] [address] 02/21/2023 Nurse Only Dermatology Sp, Nurse Dermatology [address] [facility] [place], [place] [phone] 02/28/2023 Nurse Only Dermatology Sp, Nurse Dermatology [address] [facility] [place] D, [place] [address] 03/07/2023 Nurse Only Dermatology Sp, Nurse Dermatology [address] [facility] [place], [place] [phone] Scheduled Procedures Name Priority Associated Diagnoses Date/Ti [...] Parapsoriasis documented in this encounter Care Teams Central Station Operator Relationship Specialty Start Date End Date Vanessa Rebollar, DO [address] [place] [id number] PCP - General Family Medicine 11/09/14 documented as of this encounter
--- OUTSIDE RECORDS SUMMARY | 2023-02-08 07:11 | External Medical Summary | Summary of Care ---
Author Name Unknown Organization [facility] Address [address] [place] [address] Phone [phone] Care Team Providers Care Associate Professor Of Art History Name Role Phone SmoothVanessa Raul DO Primary Care Provider [phone] Reason for Visit * Reason Comments Phototherapy NBUVB 1415 mj Encounter Details Date Type Department Care Team Description 12/06/2022 Nurse Only Dermatology [facility] [address] [place] [address] Sp, Nurse Dermatology 200 [place] [address] Phototherapy (NBUVB 1415 mj) Allergies Active Allergy Reactions Severity Noted Date Comments Codeine Nausea/vomiting,Unknown 08/14/2013 Sumatriptan Edema Other Low 12/30/2015 Swelling in joints Morphine And Related 01/16/2001 Nauseated, stomach pain Tamoxifen Edema Other Low 12/30/2015 Swelling in joints, mood swings, rash documented as of this encounter (statuses as of 12/06/2022) Medications Medication Sig Dispensed Refills Start Date [...] as of this encounter (statuses as of 12/06/2022) Active Problems Problem Noted Date Elevated hemoglobin [...] as of this encounter (statuses as of 12/06/2022) Resolved Problems Problem Noted Date Resolved Date [...] as of this encounter (statuses as of 12/06/2022) Immunizations Name Administration Dates Next Due COVID-19 [...] Nursing Notes * Kath Tucker LPN - 12/06/2022 4:12 PM EDT No skin reaction from previous treatment. Areas of body covered or protected during treatment: eyes, genitals, and breasts. Narrow Band UVB 1415 millijoules. Patient receives treatment once weekly. Narrow Band UVB dose to be increased by 100 millijoules each treatment. Max dose 1600 mj documented in this encounter Plan of Treatment Upcoming Encounters Date Type Specialty Care Team Description 12/13/2022 Nurse Only Dermatology Sp, Nurse Dermatology [address] [place], [place] [id number] 12/20/2022 Nurse Only Dermatology Sp, Nurse Dermatology [address] [place], [place] [address] 12/26/2022 Nurse Only Dermatology Sp, Nurse Dermatology [address] [place], [place] [id number] 01/03/2023 Nurse Only Dermatology Sp, Nurse Dermatology [address] [facility] [address] [place], [place] [address] 01/10/2023 Nurse Only Dermatology Sp, Nurse Dermatology [address] [place], [place] [address] 01/17/2023 Nurse Only Dermatology Sp, Nurse Dermatology [address] [place], [place] [id number] 01/24/2023 Nurse Only Dermatology Sp, Nurse Dermatology [address] [place], [place] [id number] 02/01/2023 Nurse Only Dermatology Sp, Nurse Dermatology 200 [facility] [place] [address] 02/07/2023 Nurse Only Dermatology Sp, Nurse Dermatology [address] [place], [place] [phone] 02/14/2023 Nurse Only Dermatology Sp, Nurse Dermatology [address] [facility] [address] [place], [place] [address] 02/21/2023 Nurse Only Dermatology Sp, Nurse Dermatology [address] [place] [address] 02/28/2023 Nurse Only Dermatology Sp, Nurse Dermatology 200 [facility] [place] [address] 03/07/2023 Nurse Only Dermatology Sp, Nurse Dermatology [address] [facility] [place] [address] 05/27/2023 Office Visit Dermatology Cesar Wallace MD [address] [facility] [place] [address] Scheduled Procedures Name Priority Associated Diagnoses Date/Ti [...] Parapsoriasis documented in this encounter Care Teams Associate Professor Of Art History Relationship Specialty Start Date End Date Vanessa Rebollar, DO [address] [place] [id number] PCP - General Family Medicine 11/09/14 documented as of this encounter
--- OUTSIDE RECORDS SUMMARY | 2023-02-08 07:12 | External Medical Summary | Summary of Care ---
Author Name Unknown Organization [facility] Address [address] [place] [address] Phone [phone] Care Team Providers Care Pipe Fitter Supervisor Maintenance Name Role Phone SmoothVanessa Raul DO Primary Care Provider [phone] Reason for Visit * Reason Comments Light treatment NBUVB 1454 MJ Encounter Details Date Type Department Care Team Description 08/23/2022 Nurse Only Dermatology [facility] [address] [place] [address] Sp, Nurse Dermatology 200 [facility] [place] [address] Light treatment (NBUVB 1454 MJ) Allergies Active Allergy Reactions Severity Noted Date Comments Codeine Nausea/vomiting,Unknown 08/14/2013 Sumatriptan Edema Other Low 12/30/2015 Swelling in joints Morphine And Related 01/16/2001 Nauseated, stomach pain Tamoxifen Edema Other Low 12/30/2015 Swelling in joints, mood swings, rash documented as of this encounter (statuses as of 08/23/2022) Medications Medication Sig Dispensed Refills Start Date [...] the morning. 30 Tablet 1 05/09/2022 Active Losartan Potassium 50 MG Oral Tablet (Cozaar)Indications :HTN, goal below 130/80 Take 1 Tablet by mouth in the morning. 30 Tablet 0 08/09/2022 Active Erythromycin Base 500 MG Oral TabletIndications:E ncounter for therapeutic drug monitoring Take 1 Tablet by mouth in the morning and 1 Tablet before bedtime. Until gone.. 180 Tablet 3 08/10/2022 Active documented as of this encounter (statuses as of 08/23/2022) Active Problems Problem Noted Date Elevated hemoglobin [...] as of this encounter (statuses as of 08/23/2022) Resolved Problems Problem Noted Date Resolved Date [...] as of this encounter (statuses as of 08/23/2022) Immunizations Name Administration Dates Next Due COVID-19 [...] Nursing Notes * Velma Sandoval LPN - 08/23/2022 3:40 PM EDT No skin reaction from previous treatment. Areas of body covered or protected during treatment: face, eyes and genitals. Narrow Band UVB 1449 millijoules. Patient receives treatment twice weekly. Narrow Band UVB dose to be increased by 100 millijoules each treatment. documented in this encounter Plan of Treatment Upcoming Encounters Date Type Specialty Care Team Description 08/30/2022 Nurse Only Dermatology Sp, Nurse Dermatology [address] [place], [place] [phone] 09/03/2022 Imaging Cardiac Studies 09/06/2022 Nurse Only Dermatology Sp, Nurse Dermatology [address] [place], [place] [address] 09/13/2022 Nurse Only Dermatology Sp, Nurse Dermatology [address] [place] [address] 09/20/2022 Nurse Only Dermatology Sp, Nurse Dermatology [address] [place], [place] [address] 09/24/2022 Nurse Only Dermatology Sp, Nurse Dermatology [address] [place], [place] [address] 09/28/2022 Nurse Only Dermatology Sp, Nurse Dermatology [address] [place] [address] 10/04/2022 Nurse Only Dermatology Sp, Nurse Dermatology [address] [facility] [place] [address] 10/11/2022 Nurse Only Dermatology Sp, Nurse Dermatology [address] [facility] [place] [address] 10/18/2022 Nurse Only Dermatology Sp, Nurse Dermatology [address] [facility] [place] [address] 10/25/2022 Nurse Only Dermatology Sp, Nurse Dermatology [address] [facility] [place], [place] [address] 11/01/2022 Nurse Only Dermatology Sp, Nurse Dermatology [address] [place], [place] [phone] 11/08/2022 Nurse Only Dermatology Sp, Nurse Dermatology [address] [place] [address] 11/15/2022 Nurse Only Dermatology Sp, Nurse Dermatology [address] [place], [place] [address] 11/22/2022 Nurse Only Dermatology Sp, Nurse Dermatology [address] [place] [address] 11/29/2022 Nurse Only Dermatology Sp, Nurse Dermatology [address] [place] [address] 12/06/2022 Nurse Only Dermatology Sp, Nurse Dermatology [address] [place] [address] 12/13/2022 Nurse Only Dermatology Sp, Nurse Dermatology [address] [place] [address] 12/20/2022 Nurse Only Dermatology Sp, Nurse Dermatology [address] [place] [address] 12/27/2022 Nurse Only Dermatology Sp, Nurse Dermatology [address] [place] [address] 01/03/2023 Nurse Only Dermatology Sp, Nurse Dermatology [address] [facility] [place] [address] 01/10/2023 Nurse Only Dermatology Sp, Nurse Dermatology [address] [place] [address] 01/17/2023 Nurse Only Dermatology Sp, Nurse Dermatology [address] [place] [address] 01/24/2023 Nurse Only Dermatology Sp, Nurse Dermatology [address] [place], [place] [phone] 02/01/2023 Nurse Only Dermatology Sp, Nurse Dermatology [address] [place], [place] [phone] 02/07/2023 Nurse Only Dermatology Sp, Nurse Dermatology [address] [place], [place] [address] 02/14/2023 Nurse Only Dermatology Sp, Nurse Dermatology [address] [place] [address] 02/21/2023 Nurse Only Dermatology Sp, Nurse Dermatology [address] [place] [phone] 02/28/2023 Nurse Only Dermatology Sp, Nurse Dermatology [address] [employer], [place] [address] 03/07/2023 Nurse Only Dermatology Sp, Nurse Dermatology 200 [facility] [place], [place] [phone] Scheduled Procedures Name Priority Associated Diagnoses Date/Ti [...] 10/16/2021, 11/2020, 01/20/2019 Influenza Vaccine (FLU shot) (Season Ended) 2022 Mammogram 05/30/2023 05/29/2022, 05/09, 04/18/2020, Additional [...] Parapsoriasis documented in this encounter Care Teams Pipe Fitter Supervisor Maintenance Relationship Specialty Start Date End Date Vanessa Rebollar, DO [address] [place] [id number] PCP - General Family Medicine 11/09/14 documented as of this encounter
--- OUTSIDE RECORDS SUMMARY | 2023-02-08 07:12 | External Medical Summary | Summary of Care ---
Author Name Unknown Organization [facility] Address [address] [place] [address] Phone [phone] Care Team Providers Care Six Pack Loader Operator Name Role Phone SmoothVanessa Raul DO Primary Care Provider [phone] Reason for Visit * Reason Comments Phototherapy NBUVB 1349.0 mj's gi kayleen. Encounter Details Date Type Department Care Team Description 08/16/2022 Nurse Only Dermatology [facility] [place] [address] [place] [address] Sp, Nurse Dermatology 200 [place] [address] Phototherapy (NBUVB 1349.0 mj's given. ) Allergies Active Allergy Reactions Severity Noted Date Comments Codeine Nausea/vomiting,Unknown 08/14/2013 Sumatriptan Edema Other Low 12/30/2015 Swelling in joints Morphine And Related 01/16/2001 Nauseated, stomach pain Tamoxifen Edema Other Low 12/30/2015 Swelling in joints, mood swings, rash documented as of this encounter (statuses as of 08/16/2022) Medications Medication Sig Dispensed Refills Start Date [...] as of this encounter (statuses as of 08/16/2022) Active Problems Problem Noted Date Elevated hemoglobin [...] as of this encounter (statuses as of 08/16/2022) Resolved Problems Problem Noted Date Resolved Date [...] as of this encounter (statuses as of 08/16/2022) Immunizations Name Administration Dates Next Due COVID-19 [...] Nursing Notes * Genesis Wylie LPN - 08/16/2022 3:55 PM EDT No skin reaction from previous treatment. Areas of body covered or protected during treatment: face, eyes and genitals. Narrow Band UVB 1349 millijoules. Patient receives treatment twice weekly. Narrow Band UVB dose to be increased by 100 millijoules each treatment documented in this encounter Plan of Treatment Upcoming Encounters Date Type Specialty Care Team Description 08/23/2022 Nurse Only Dermatology Sp, Nurse Dermatology [address] [place], [place] [address] 08/30/2022 Nurse Only Dermatology Sp, Nurse Dermatology [address] [place], [place] [address] 09/03/2022 Imaging Cardiac Studies 09/06/2022 Nurse Only Dermatology Sp, Nurse Dermatology [facility] [place], [place] [address] 09/13/2022 Nurse Only Dermatology Sp, Nurse Dermatology 200 [facility] [place], [place] [address] 09/20/2022 Nurse Only Dermatology Sp, Nurse Dermatology [address] [facility] [place], [place] [address] 09/24/2022 Nurse Only Dermatology Sp, Nurse Dermatology 200 [facility] [place], [place] [address] 09/28/2022 Nurse Only Dermatology Sp, Nurse Dermatology 200 [facility] [address] 10/04/2022 Nurse Only Dermatology Sp, Nurse Dermatology [address] [facility] [place] [address] 10/11/2022 Nurse Only Dermatology Sp, Nurse Dermatology 200 [facility] [address] 10/18/2022 Nurse Only Dermatology Sp, Nurse Dermatology [address] [facility] [place], [place] [address] 10/25/2022 Nurse Only Dermatology Sp, Nurse Dermatology 200 [facility] [place] [address] 11/01/2022 Nurse Only Dermatology Sp, Nurse Dermatology [address] [place] [address] 11/08/2022 Nurse Only Dermatology Sp, Nurse Dermatology [address] [place] [address] 11/15/2022 Nurse Only Dermatology Sp, Nurse Dermatology [address] [place] [address] 11/22/2022 Nurse Only Dermatology Sp, Nurse Dermatology [address] [place] [address] 11/29/2022 Nurse Only Dermatology Sp, Nurse Dermatology [address] [place] [address] 12/06/2022 Nurse Only Dermatology Sp, Nurse Dermatology [address] [facility] [place] [address] 12/13/2022 Nurse Only Dermatology Sp, Nurse Dermatology [address] [place] [address] 12/20/2022 Nurse Only Dermatology Sp, Nurse Dermatology [address] [place] [address] 12/27/2022 Nurse Only Dermatology Sp, Nurse Dermatology [address] [place] [address] 01/03/2023 Nurse Only Dermatology Sp, Nurse Dermatology [address] [place] [address] 01/10/2023 Nurse Only Dermatology Sp, Nurse Dermatology [address] [place] [address] 01/17/2023 Nurse Only Dermatology Sp, Nurse Dermatology [address] [place] [address] 01/24/2023 Nurse Only Dermatology Sp, Nurse Dermatology [address] [place] [address] 02/01/2023 Nurse Only Dermatology Sp, Nurse Dermatology [address] [place] [address] 02/07/2023 Nurse Only Dermatology Sp, Nurse Dermatology [address] [place] [address] 02/14/2023 Nurse Only Dermatology Sp, Nurse Dermatology [address] [place] [address] 02/21/2023 Nurse Only Dermatology Sp, Nurse Dermatology [address] [place] [address] 02/28/2023 Nurse Only Dermatology Sp, Nurse Dermatology [address] [facility] [place], [place] [phone] 03/07/2023 Nurse Only Dermatology Sp, Nurse Dermatology [address] [facility] [place], [place] [phone] Scheduled Procedures Name Priority Associated Diagnoses Date/Ti me COLONOSCOPY FLEXIBLE PROXIMAL DIAGNOSTIC Recall History of colon polyps Health Maintenance Due Date Last Done Comments Hepatitis B (1 of 3 - 3-dose series) 1965 COVID-19 Vaccine (3 - Booster for Moderna series) 10/25/2020 08/30/2020, 08/03/2020 Depression, Most Recent Score >= 10 (will fire each visit until score < 10) 05/26/2021 05/25/2021 HbA1c 10/16/2022 10/16/2021, 02/11/2020, 01/20/2019 Influenza Vaccine (FLU shot) (Season Ended) [...] 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
--- OUTSIDE RECORDS SUMMARY | 2023-02-08 07:12 | External Medical Summary | Summary of Care ---
Author Name Unknown Organization [facility] Address [address] [place] [address] Phone [phone] Care Team Providers Care Non Profit Financial Controller Name Role Phone SmoothVanessa Raul DO Primary Care Provider [phone] Reason for Visit * Reason Comments Light treatment NBUVB 1525 MJ Encounter Details Date Type Department Care Team Description 09/13/2022 Nurse Only Dermatology [facility] [address] [place] [address] Sp, Nurse Dermatology 200 [facility] [place] [address] Light treatment (NBUVB 1525 MJ) Allergies Active Allergy Reactions Severity Noted Date Comments Codeine Nausea/vomiting,Unknown 08/14/2013 Sumatriptan Edema Other Low 12/30/2015 Swelling in joints Morphine And Related 01/16/2001 Nauseated, stomach pain Tamoxifen Edema Other Low 12/30/2015 Swelling in joints, mood swings, rash documented as of this encounter (statuses as of 09/13/2022) Medications Medication Sig Dispensed Refills Start Date [...] as of this encounter (statuses as of 09/13/2022) Active Problems Problem Noted Date Elevated hemoglobin [...] as of this encounter (statuses as of 09/13/2022) Resolved Problems Problem Noted Date Resolved Date [...] as of this encounter (statuses as of 09/13/2022) Immunizations Name Administration Dates Next Due COVID-19 [...] Nursing Notes * Velma Sandoval LPN - 09/13/2022 3:51 PM EDT No skin reaction from previous treatment. Areas of body covered or protected during treatment: face, eyes and genitals. Narrow Band UVB 1518 millijoules. Patient receives treatment twice weekly. Narrow Band UVB dose to be increased by 100 millijoules each treatment. documented in this encounter Plan of Treatment Upcoming Encounters Date Type Specialty Care Team Description 09/20/2022 Nurse Only Dermatology Sp, Nurse Dermatology [address] [place], [place] [id number] 09/28/2022 Nurse Only Dermatology Sp, Nurse Dermatology [address] [facility] [address] [place], [place] [address] 10/04/2022 Nurse Only Dermatology Sp, Nurse Dermatology [address] [facility] [address] [place] [address] 10/11/2022 Nurse Only Dermatology Sp, Nurse Dermatology [address] [facility] [address] [place], [place] [address] 10/18/2022 Nurse Only Dermatology Sp, Nurse Dermatology [address] [facility] [address] [place], [place] [address] 10/25/2022 Nurse Only Dermatology Sp, Nurse Dermatology [address] [place] [address] 11/01/2022 Nurse Only Dermatology Sp, Nurse Dermatology [address] [facility] [address] [place], [place] [address] 11/08/2022 Nurse Only Dermatology Sp, Nurse Dermatology [address] [facility] [place] [address] 11/14/2022 Imaging Cardiac Studies 11/15/2022 Nurse Only Dermatology Sp, Nurse Dermatology [address] [place] [address] 11/22/2022 Nurse Only Dermatology Sp, Nurse Dermatology [address] [place], [place] [address] 11/29/2022 Nurse Only Dermatology Sp, Nurse Dermatology 200 [facility] [place], [place] [id number] 12/06/2022 Nurse Only Dermatology Sp, Nurse Dermatology [address] [place] [address] 12/13/2022 Nurse Only Dermatology Sp, Nurse Dermatology [address] [place], [place] [address] 12/20/2022 Nurse Only Dermatology Sp, Nurse Dermatology [address] [place] [address] 12/27/2022 Nurse Only Dermatology Sp, Nurse Dermatology [address] [place] [address] 01/03/2023 Nurse Only Dermatology Sp, Nurse Dermatology [address] [place], [place] [address] 01/10/2023 Nurse Only Dermatology Sp, Nurse Dermatology [address] [place] [address] 01/17/2023 Nurse Only Dermatology Sp, Nurse Dermatology [address] [place] [address] 01/24/2023 Nurse Only Dermatology Sp, Nurse Dermatology [address] [place] [address] 02/01/2023 Nurse Only Dermatology Sp, Nurse Dermatology 200 [facility] [place] [address] 02/07/2023 Nurse Only Dermatology Sp, Nurse Dermatology [address] [place] [address] 02/14/2023 Nurse Only Dermatology Sp, Nurse Dermatology [address] [place] [address] 02/21/2023 Nurse Only Dermatology Sp, Nurse Dermatology [address] [place], [place] [address] 02/28/2023 Nurse Only Dermatology Sp, Nurse Dermatology 200 [facility] [place], [place] [address] 03/07/2023 Nurse Only Dermatology Sp, Nurse Dermatology 200 [facility] [place], [place] [address] Scheduled Procedures Name Priority Associated Diagnoses Date/Ti [...] 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
--- OUTSIDE RECORDS SUMMARY | 2023-02-08 07:12 | External Medical Summary | Summary of Care ---
Author Name Unknown Organization [facility] Address [address] [place] [address] Phone [phone] Care Team Providers Care Seed Cleaner Operator Name Role Phone SmoothVanessa Raul DO Primary Care Provider [phone] Reason for Visit * Reason Comments Light treatment NBUVB 1525 MJ Encounter Details Date Type Department Care Team Description 09/13/2022 Nurse Only Dermatology [facility] [address] [place] [address] Sp, Nurse Dermatology 200 [facility] [place] [address] Light treatment (NBUVB 1525 MJ) Allergies Active [...] Dermatology [address] [place], [place] [id number] 09/28/2022 Nurse Only Dermatology Sp, Nurse Dermatology 200 [facility] [address] [place], [place] [address] 10/04/2022 Nurse Only Dermatology Sp, Nurse Dermatology [address] [facility] [address] [place] [address] 10/11/2022 Nurse Only Dermatology Sp, Nurse Dermatology [address] [facility] [address] [place], [place] [address] 10/18/2022 Nurse Only Dermatology Sp, Nurse Dermatology [address] [facility] [address] [place], [place] [address] 10/25/2022 Nurse Only Dermatology Sp, Nurse Dermatology [address] [place] [address] 11/01/2022 Nurse Only Dermatology Sp, Nurse Dermatology [address] [facility] [address] [place], [place] [address] 11/08/2022 Nurse Only Dermatology Sp, Nurse Dermatology [address] [facility] [place] [address] 11/14/2022 Imaging Cardiac Studies 11/15/2022 Nurse Only Dermatology Sp, Nurse Dermatology [address] [place] [address] 11/22/2022 Nurse Only Dermatology Sp, Nurse Dermatology [address] [place], [place] [address] 11/29/2022 Nurse Only Dermatology Sp, Nurse Dermatology 200 [facility] [place], [place] [address] 12/06/2022 Nurse Only Dermatology Sp, Nurse Dermatology [address] [place] [address] 12/13/2022 Nurse Only Dermatology Sp, Nurse Dermatology [address] [place], [place] [address] 12/20/2022 Nurse Only Dermatology Sp, Nurse Dermatology [address] [place] [address] 12/27/2022 Nurse Only Dermatology Sp, Nurse Dermatology [address] [place] [address] 01/03/2023 Nurse Only Dermatology Sp, Nurse Dermatology [address] [place], [place] [address] 01/10/2023 Nurse Only Dermatology Sp, Nurse Dermatology [address] [place] [address] 01/17/2023 Nurse Only Dermatology Sp, Nurse Dermatology [address] [place] [address] 01/24/2023 Nurse Only Dermatology Sp, Nurse Dermatology [address] [place] [address] 02/01/2023 Nurse Only Dermatology Sp, Nurse Dermatology 200 [facility] [place] [address] 02/07/2023 Nurse Only Dermatology Sp, Nurse Dermatology [address] [place] [address] 02/14/2023 Nurse Only Dermatology Sp, Nurse Dermatology [address] [place] [address] 02/21/2023 Nurse Only Dermatology Sp, Nurse Dermatology [address] [place], [place] [address] 02/28/2023 Nurse Only Dermatology Sp, Nurse Dermatology 200 [facility] [place], [place] [address] 03/07/2023 Nurse Only Dermatology Sp, Nurse Dermatology 200 [facility] [place], [place] [address] Scheduled Procedures Name Priority Associated Diagnoses Date/Ti [...] 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
--- OUTSIDE RECORDS SUMMARY | 2023-02-08 07:12 | External Medical Summary | Summary of Care ---
Author Name Unknown Organization [facility] Address [address] [place] [address] Phone [phone] Care Team Providers Care Methodologist Name Role Phone SmoothVanessa Raul DO Primary Care Provider [phone] Reason for Visit * Reason Comments Light treatment NBUVB 1628 mj Encounter Details Date Type Department Care Team Description 09/18/2022 Nurse Only Dermatology [facility] [address] [place] [address] Sp, Nurse Dermatology 200 [place] [address] Light treatment (NBUVB 1626 mj) Allergies Active Allergy Reactions Severity Noted [...] Dermatology [address] [place], [place] [id number] 10/04/2022 Nurse Only Dermatology Sp, Nurse Dermatology [address] [place], [place] [address] 10/11/2022 Nurse Only Dermatology Sp, Nurse Dermatology [address] [place] [address] 10/18/2022 Nurse Only Dermatology Sp, Nurse Dermatology [address] [facility] [address] [place], [place] [address] 10/25/2022 Nurse Only Dermatology Sp, Nurse Dermatology [address] [place], [place] [address] 11/01/2022 Nurse Only Dermatology Sp, Nurse Dermatology [address] [place] [address] 11/08/2022 Nurse Only Dermatology Sp, Nurse Dermatology [address] [facility] [address] [place], [place] [address] 11/14/2022 Imaging Cardiac Studies 11/15/2022 Nurse Only Dermatology Sp, Nurse Dermatology [address] [facility] [place] [address] 11/22/2022 Nurse Only Dermatology Sp, Nurse Dermatology [address] [place] [address] 11/29/2022 Nurse Only Dermatology Sp, Nurse Dermatology [address] [facility] [address] [place], [place] [address] 12/06/2022 Nurse Only Dermatology Sp, Nurse Dermatology [address] [place], [place] [id number] 12/13/2022 Nurse Only Dermatology Sp, Nurse Dermatology [address] [place] [address] 12/20/2022 Nurse Only Dermatology Sp, Nurse Dermatology [address] [place], [place] [address] 12/27/2022 Nurse Only Dermatology Sp, Nurse Dermatology [address] [place] [address] 01/03/2023 Nurse Only Dermatology Sp, Nurse Dermatology [address] [place] [address] 01/10/2023 Nurse Only Dermatology Sp, Nurse Dermatology [address] [place], [place] [address] 01/17/2023 Nurse Only Dermatology Sp, Nurse Dermatology [address] [place] [address] 01/24/2023 Nurse Only Dermatology Sp, Nurse Dermatology [address] [place] [address] 02/01/2023 Nurse Only Dermatology Sp, Nurse Dermatology [address] [place] [address] 02/07/2023 Nurse Only Dermatology Sp, Nurse Dermatology [address] [place] [address] 02/14/2023 Nurse Only Dermatology Sp, Nurse Dermatology [address] [place] [address] 02/21/2023 Nurse Only Dermatology Sp, Nurse Dermatology [address] [place] [address] 02/28/2023 Nurse Only Dermatology Sp, Nurse Dermatology [address] [place], [place] [address] 03/07/2023 Nurse Only Dermatology Sp, Nurse Dermatology 200 [facility] [place] [address] Scheduled Orders Name Type Priority Associated Diagnoses [...] 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
--- OUTSIDE RECORDS SUMMARY | 2023-02-08 07:12 | External Medical Summary | Summary of Care ---
Author Name Unknown Organization [facility] Address [address] [place] [address] Phone [phone] Care Team Providers Care President & Ceo [employer] Name Role Phone SmoothVanessa Raul DO Primary Care Provider [phone] Reason for Visit * Reason Comments Light treatment NBUVB 1454 MJ Encounter Details Date Type Department Care Team Description 08/23/2022 Nurse Only Dermatology [facility] [address] [place] [address] Sp, Nurse Dermatology 200 [place] [address] Light treatment (NBUVB 1454 MJ) Allergies Active [...] Dermatology Sp, Nurse Dermatology [address] [place], [place] [id number] 09/03/2022 Imaging Cardiac Studies 09/06/2022 Nurse Only Dermatology Sp, Nurse Dermatology [address] [place], [place] [address] 09/13/2022 Nurse Only Dermatology Sp, Nurse Dermatology [address] [place] [address] 09/20/2022 Nurse Only Dermatology Sp, Nurse Dermatology [address] [place], [place] [address] 09/24/2022 Nurse Only Dermatology Sp, Nurse Dermatology [address] [place], [place] [address] 09/28/2022 Nurse Only Dermatology Sp, Nurse Dermatology [address] [place] [address] 10/04/2022 Nurse Only Dermatology Sp, Nurse Dermatology [address] [facility] [place] [address] 10/11/2022 Nurse Only Dermatology Sp, Nurse Dermatology 200 [facility] [place] [address] 10/18/2022 Nurse Only Dermatology Sp, Nurse Dermatology 200 [facility] [place] [address] 10/25/2022 Nurse Only Dermatology Sp, Nurse Dermatology [address] [facility] [place], [place] [address] 11/01/2022 Nurse Only Dermatology Sp, Nurse Dermatology [address] [place], [place] [address] 11/08/2022 Nurse Only Dermatology Sp, Nurse Dermatology [address] [place] [address] 11/15/2022 Nurse Only Dermatology Sp, Nurse Dermatology [address] [place], [place] [address] 11/22/2022 Nurse Only Dermatology Sp, Nurse Dermatology [address] [place] [address] 11/29/2022 Nurse Only Dermatology Sp, Nurse Dermatology [address] [place] [address] 12/06/2022 Nurse Only Dermatology Sp, Nurse Dermatology [address] [place] [address] 12/13/2022 Nurse Only Dermatology Sp, Nurse Dermatology [address] [place] [address] 12/20/2022 Nurse Only Dermatology Sp, Nurse Dermatology [address] [place] [address] 12/27/2022 Nurse Only Dermatology Sp, Nurse Dermatology [address] [place] [address] 01/03/2023 Nurse Only Dermatology Sp, Nurse Dermatology 200 [facility] [place] [address] 01/10/2023 Nurse Only Dermatology Sp, Nurse Dermatology [address] [place] [address] 01/17/2023 Nurse Only Dermatology Sp, Nurse Dermatology [address] [place] [address] 01/24/2023 Nurse Only Dermatology Sp, Nurse Dermatology [address] [place], [place] [address] 02/01/2023 Nurse Only Dermatology Sp, Nurse Dermatology [address] [place], [place] [address] 02/07/2023 Nurse Only Dermatology Sp, Nurse Dermatology [address] [place], [place] [address] 02/14/2023 Nurse Only Dermatology Sp, Nurse Dermatology [address] [place] [address] 02/21/2023 Nurse Only Dermatology Sp, Nurse Dermatology [address] [place] [address] 02/28/2023 Nurse Only Dermatology Sp, Nurse Dermatology [address] [place], [place] [address] 03/07/2023 Nurse Only Dermatology Sp, Nurse Dermatology 200 [facility] [place], [place] [id number] Scheduled Procedures Name Priority Associated Diagnoses Date/Ti [...] 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
--- OUTSIDE RECORDS SUMMARY | 2023-02-08 07:12 | External Medical Summary | Summary of Care ---
Author Name Unknown Organization [facility] Address [address] [place] [address] Phone [phone] Care Team Providers Care Fruit Thinner Name Role Phone SmoothVanessa Raul DO Primary Care Provider [phone] Reason for Visit * Reason Comments Phototherapy NBUVB 1311 mj's give n. Encounter Details Date Type Department Care Team Description 08/30/2022 Nurse Only Dermatology [facility] [place] [address] [place] [address] Sp, Nurse Dermatology 200 [facility] [place] [address] Phototherapy (NBUVB 1311 mj's given. ) Allergies Active Allergy Reactions Severity Noted Date Comments Codeine Nausea/vomiting,Unknown 08/14/2013 Sumatriptan Edema Other Low 12/30/2015 Swelling in joints Morphine And Related 01/16/2001 Nauseated, stomach pain Tamoxifen Edema Other Low 12/30/2015 Swelling in joints, mood swings, rash documented as of this encounter (statuses as of 08/30/2022) Medications Medication Sig Dispensed Refills Start Date [...] as of this encounter (statuses as of 08/30/2022) Active Problems Problem Noted Date Elevated hemoglobin [...] as of this encounter (statuses as of 08/30/2022) Resolved Problems Problem Noted Date Resolved Date [...] as of this encounter (statuses as of 08/30/2022) Immunizations Name Administration Dates Next Due COVID-19 [...] Nursing Notes * Genesis Wylie LPN - 08/30/2022 3:42 PM EDT No skin reaction from previous treatment. Areas of body covered or protected during treatment: face, eyes and genitals. Narrow Band millijoules decreased 10% because light novoa was recalibrated. NBUVB 1311 mj's given. Patient receives treatment twice weekly. Narrow Band UVB dose to be increased by100 millijoules each treatment. documented in this encounter Plan of Treatment Upcoming Encounters Date Type Specialty Care Team Description 09/06/2022 Nurse Only Dermatology Sp, Nurse Dermatology 200 [facility], [place] [id number] 09/13/2022 Nurse Only Dermatology Sp, Nurse Dermatology 200 [place] [address] 09/20/2022 Nurse Only Dermatology Sp, Nurse Dermatology 200 [place] [address] 09/24/2022 Nurse Only Dermatology Sp, Nurse Dermatology 200 [place] [address] 09/28/2022 Nurse Only Dermatology Sp, Nurse Dermatology 200 [place] [address] 10/04/2022 Nurse Only Dermatology Sp, Nurse Dermatology 200 [place] [address] 10/11/2022 Nurse Only Dermatology Sp, Nurse Dermatology 200 [place] [address] 10/18/2022 Nurse Only Dermatology Sp, Nurse Dermatology 200 [place] [address] 10/25/2022 Nurse Only Dermatology Sp, Nurse Dermatology 200 [facility], [place] [address] 11/01/2022 Nurse Only Dermatology Sp, Nurse Dermatology 200 [place] [address] 11/08/2022 Nurse Only Dermatology Sp, Nurse Dermatology [address] [place] [address] 11/14/2022 Imaging Cardiac Studies 11/15/2022 Nurse Only Dermatology Sp, Nurse Dermatology [address] [place] [address] 11/22/2022 Nurse Only Dermatology Sp, Nurse Dermatology [address] [place] [address] 11/29/2022 Nurse Only Dermatology Sp, Nurse Dermatology [address] [place] [address] 12/06/2022 Nurse Only Dermatology Sp, Nurse Dermatology [address] [place] [address] 12/13/2022 Nurse Only Dermatology Sp, Nurse Dermatology [address] [place] [address] 12/20/2022 Nurse Only Dermatology Sp, Nurse Dermatology [address] [place] [address] 12/27/2022 Nurse Only Dermatology Sp, Nurse Dermatology [address] [place] [address] 01/03/2023 Nurse Only Dermatology Sp, Nurse Dermatology [address] [place] [address] 01/10/2023 Nurse Only Dermatology Sp, Nurse Dermatology [address] [place] [address] 01/17/2023 Nurse Only Dermatology Sp, Nurse Dermatology [address] [place] [address] 01/24/2023 Nurse Only Dermatology Sp, Nurse Dermatology [address] [place], [place] [address] 02/01/2023 Nurse Only Dermatology Sp, Nurse Dermatology [address] [place], [place] [id number] 02/07/2023 Nurse Only Dermatology Sp, Nurse Dermatology [address] [place], [place] [address] 02/14/2023 Nurse Only Dermatology Sp, Nurse Dermatology 200 [facility] [place], [place] [address] 02/21/2023 Nurse Only Dermatology Sp, Nurse Dermatology [facility] [place], [place] [address] 02/28/2023 Nurse Only Dermatology Sp, Nurse Dermatology 200 [facility] [place], [place] [address] 03/07/2023 Nurse Only Dermatology Sp, Nurse Dermatology 200 [facility] [place], [place] [address] Scheduled Procedures Name Priority Associated Diagnoses Date/Ti [...] 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
--- OUTSIDE RECORDS SUMMARY | 2023-02-08 07:12 | External Medical Summary | Summary of Care ---
Author Name Unknown Organization [facility] Address [address] [place] [address] Phone [phone] Care Team Providers Care Superintendent Operations Division Name Role Phone SmoothVanessa Raul DO Primary Care Provider [phone] Reason for Visit * Reason Comments Phototherapy Nbuvb 1418 mj's give n. Encounter Details Date Type Department Care Team Description 09/06/2022 Nurse Only Dermatology [facility] [place] [address] [place] [address] Sp, Nurse Dermatology [address] [place] [address] Phototherapy (Nbuvb 1418 mj's given.) Allergies Active Allergy Reactions Severity Noted Date Comments Codeine Nausea/vomiting,Unknown 08/14/2013 Sumatriptan Edema Other Low 12/30/2015 Swelling in joints Morphine And Related 01/16/2001 Nauseated, stomach pain Tamoxifen Edema Other Low 12/30/2015 Swelling in joints, mood swings, rash documented as of this encounter (statuses as of 09/06/2022) Medications Medication Sig Dispensed Refills Start Date [...] as of this encounter (statuses as of 09/06/2022) Active Problems Problem Noted Date Elevated hemoglobin [...] as of this encounter (statuses as of 09/06/2022) Resolved Problems Problem Noted Date Resolved Date [...] as of this encounter (statuses as of 09/06/2022) Immunizations Name Administration Dates Next Due COVID-19 [...] Nursing Notes * Genesis Wylie LPN - 09/06/2022 3:51 PM EDT No skin reaction from previous treatment. Areas of body covered or protected during treatment:face, eyes and genitals. NBUVB 1418 mj's given. Patient receives treatmenttwice weekly. Narrow Band UVB dose to beincreased by 100 millijouleseach treatment. documented in this encounter Plan of Treatment Upcoming Encounters Date Type Specialty Care Team Description 09/13/2022 Nurse Only Dermatology Sp, Nurse Dermatology [address] [place] [id number] 09/20/2022 Nurse Only Dermatology Sp, Nurse Dermatology [address] [place], [place] [address] 09/28/2022 Nurse Only Dermatology Sp, Nurse Dermatology [address] [place] [address] 10/04/2022 Nurse Only Dermatology Sp, Nurse Dermatology [address] [place] [address] 10/11/2022 Nurse Only Dermatology Sp, Nurse Dermatology [address] [place] [address] 10/18/2022 Nurse Only Dermatology Sp, Nurse Dermatology [address] [facility] [place] [address] 10/25/2022 Nurse Only Dermatology Sp, Nurse Dermatology [address] [facility] [place] [address] 11/01/2022 Nurse Only Dermatology Sp, Nurse Dermatology [address] [place] [address] 11/08/2022 Nurse Only Dermatology Sp, Nurse Dermatology [address] [place] [address] 11/14/2022 Imaging Cardiac Studies 11/15/2022 Nurse Only Dermatology Sp, Nurse Dermatology [address] [place] [address] 11/22/2022 Nurse Only Dermatology Sp, Nurse Dermatology [address] [facility] [place] [address] 11/29/2022 Nurse Only Dermatology Sp, Nurse Dermatology [address] [place] [address] 12/06/2022 Nurse Only Dermatology Sp, Nurse Dermatology [address] [place] [address] 12/13/2022 Nurse Only Dermatology Sp, Nurse Dermatology [address] [place] [address] 12/20/2022 Nurse Only Dermatology Sp, Nurse Dermatology [address] [place] [address] 12/27/2022 Nurse Only Dermatology Sp, Nurse Dermatology [address] [place] [address] 01/03/2023 Nurse Only Dermatology Sp, Nurse Dermatology [address] [place] [address] 01/10/2023 Nurse Only Dermatology Sp, Nurse Dermatology [address] [place] [address] 01/17/2023 Nurse Only Dermatology Sp, Nurse Dermatology [address] [place] [address] 01/24/2023 Nurse Only Dermatology Sp, Nurse Dermatology [address] [place] [address] 02/01/2023 Nurse Only Dermatology Sp, Nurse Dermatology [address] [place] [address] 02/07/2023 Nurse Only Dermatology Sp, Nurse Dermatology [address] [place] [address] 02/14/2023 Nurse Only Dermatology Sp, Nurse Dermatology [address] [place] [address] 02/21/2023 Nurse Only Dermatology Sp, Nurse Dermatology [address] [place] [address] 02/28/2023 Nurse Only Dermatology Sp, Nurse Dermatology [address] [place] [address] 03/07/2023 Nurse Only Dermatology Sp, Nurse Dermatology [address] [facility] [place], [place] [id number] Scheduled Procedures Name Priority Associated Diagnoses Date/Ti [...] 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
--- OUTSIDE RECORDS SUMMARY | 2023-02-08 07:12 | External Medical Summary | Summary of Care ---
Author Name Unknown Organization [facility] Address [address] [place] [address] Phone [phone] Care Team Providers Care Feed Mill Manager Name Role Phone [place] Vanessa Raul DO Primary Care Provider [phone] Reason for Visit * Reason Onset Date Comments Order Request 09/18/2022 Encounter Details Date Type Department Care Team Description 09/18/2022 Telephone Dermatology [facility] [address] [place] [address] Vangie Cochran MD Order Request Allergies Active Allergy Reactions Severity Noted Date Comments Codeine Nausea/vomiting,Unknown 08/14/2013 Sumatriptan Edema Other Low 12/30/2015 Swelling in joints Morphine And Related 01/16/2001 Nauseated, stomach pain Tamoxifen Edema Other Low 12/30/2015 Swelling in joints, mood swings, rash documented as of this encounter (statuses as of 09/18/2022) Medications Medication Sig Dispensed Refills Start Date [...] as of this encounter (statuses as of 09/18/2022) Active Problems Problem Noted Date Elevated hemoglobin [...] as of this encounter (statuses as of 09/18/2022) Resolved Problems Problem Noted Date Resolved Date 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 Family history of ischemic heart disease 004 04/14/2020 ADJ DISORDER W/DEPRES MOOD 05/03/200004/14 Overview: No psychologist, psychiatrist Female genital symptoms 01/01/2000 04/14/19 Overview: ICD-10 update of inactive term Menopause 06/03/1998 04/14/2020 documented as of this encounter (statuses as of 09/18/2022) Immunizations Name Administration Dates Next Due COVID-19 [...] encounter Miscellaneous Notes * Telephone Encounter - Nancy Bautista LPN - 09/18/2022 3:59 PM EDT Patients Light orders are still in Dr. Cochran name. Requesting new light orders. Thank you. documented in this encounter Plan of Treatment Upcoming Encounters Date Type Specialty Care Team Description 09/28/2022 Nurse Only Dermatology Sp, Nurse Dermatology [address] [place] [address] 10/04/2022 Nurse Only Dermatology Sp, Nurse Dermatology [address] [place], [place] [address] 10/11/2022 Nurse Only Dermatology Sp, Nurse Dermatology [address] [place], [place] [address] 10/18/2022 Nurse Only Dermatology Sp, Nurse Dermatology [address] [place] [address] 10/25/2022 Nurse Only Dermatology Sp, Nurse Dermatology [address] [place] [address] 11/01/2022 Nurse Only Dermatology Sp, Nurse Dermatology [address] [place], [place] [address] 11/08/2022 Nurse Only Dermatology Sp, Nurse Dermatology [address] [place] [address] 11/14/2022 Imaging Cardiac Studies 11/15/2022 Nurse Only Dermatology Sp, Nurse Dermatology [address] [place] [address] 11/22/2022 Nurse Only Dermatology Sp, Nurse Dermatology [address] [place] [address] 11/29/2022 Nurse Only Dermatology Sp, Nurse Dermatology [address] [place] [address] 12/06/2022 Nurse Only Dermatology Sp, Nurse Dermatology [address] [place] [address] 12/13/2022 Nurse Only Dermatology Sp, Nurse Dermatology [address] [place], [place] [address] 12/20/2022 Nurse Only Dermatology Sp, Nurse Dermatology [address] [place] [address] 12/27/2022 Nurse Only Dermatology Sp, Nurse Dermatology [address] [place] [address] 01/03/2023 Nurse Only Dermatology Sp, Nurse Dermatology [address] [place] [address] 01/10/2023 Nurse Only Dermatology Sp, Nurse Dermatology [address] [place] [address] 01/17/2023 Nurse Only Dermatology Sp, Nurse Dermatology [address] [place] [address] 01/24/2023 Nurse Only Dermatology Sp, Nurse Dermatology [address] [place] [address] 02/01/2023 Nurse Only Dermatology Sp, Nurse Dermatology [address] [place] [address] 02/07/2023 Nurse Only Dermatology Sp, Nurse Dermatology [address] [place] [address] 02/14/2023 Nurse Only Dermatology Sp, Nurse Dermatology [address] [place] [address] 02/21/2023 Nurse Only Dermatology Sp, Nurse Dermatology [address] [place] [address] 02/28/2023 Nurse Only Dermatology Sp, Nurse Dermatology [address] [place] [address] 03/07/2023 Nurse Only Dermatology Sp, Nurse Dermatology [address] [place] [address] Scheduled Procedures Name Priority Associated Diagnoses Date/Ti [...] filedocumented as of this encounter Care Teams Feed Mill Manager Relationship Specialty Start Date End Date Vanessa Rebollar, DO [address] [place] [address] PCP - General Family Medicine 11/09/14 documented as of this encounter
[2023-02-08] MEDS ORDERED: HYDROmorphone INJ 0.5 MG/0.5 ML SYR IV PRN (07:32)
[2023-02-08] MEDS ORDERED: ACETAMINOPHEN 1,000 MG/100 ML VIAL IV PRN (07:38)
[2023-02-08] MEDS ORDERED: SODIUM CHLORIDE 0.9% 1,000 ML IV SCH ×2 (07:45→13:00)
--- NOTE | 2023-02-08 08:36 | Anesthesiology Consultation ---
Date of Service February 08, 2023 Assessment & Plan (1) Encounter for pre-operative examination: Chart Review Chart Review: Acceptable Risk for Surgery and Patient NOT seen in Pre Admission Testing Consults Requested none History Surgery Operation Date: 02/08/23 12:15 Proposed Procedures p Laparoscopic Cholecystectomy - Phoenix Wilhelm DO Height/Weight Height: 5 ft 3 in Weight: 92.3 kg Allergies Allergy/AdvReac Type Severity Reaction Status Date / Time anastrozole Allergy Intermediate fingers Verified 02/08/23 02:12 and feet edema rash tamoxifen Allergy Intermediate SHORTNESS Verified 02/08/23 02:12 OF BREATH codeine Allergy Mild Nausea/vomi Verified 02/08/23 02:12 ting Medications Home Medications Medication Instructions Recorded Confirmed Last Taken cholecalciferol (vitamin D3) 50 2,000 units PO DAILY 11/05/18 02/08/23 Unknown mcg (2,000 unit) capsule erythromycin 500 mg tablet 500 mg PO AMHS 02/08/23 02/08/23 Unknown losartan 50 mg tablet 50 mg PO QAM 02/08/23 02/08/23 Unknown multivitamin with minerals 1 tab PO DAILY 02/08/23 02/08/23 Unknown (Multiple Vitamin-Minerals tablet) vitamin B complex 1 tab PO QAM 02/08/23 02/08/23 Unknown Active Medications Generic Name Dose Route Start Last Admin Trade Name Freq PRN Reason Stop Dose Admin Lactated Ringer's 1,000 mls @ 80 mls/hr 02/08/23 07:00 02/08/23 07:37 Lr IV 03/10/23 06:59 80 mls/hr .[id number] JIM Administration Past Medical History Medical History Pityriasis lichenoides chronica Malignant neoplasm of central portion of left breast in female, estrogen receptor positive (10/28/14) Social History Smoking Status: Never smoker Physical Exam Vital Signs Last Vital Signs Temp 97.7 F 02/07/23 18:57 Pulse 79 02/08/23 08:00 Resp 17 02/08/23 08:00 BP 157/100 H 02/08/23 08:00 Pulse Ox 95 02/08/23 08:00 O2 Del Method Room Air 02/08/23 07:40 Testing Laboratory Results 02/07/23 21:02/07/23 21:01 Urine Color Yellow 02/07/23 21:01 Urine Appearance Clear (Clear) 02/07/23 21:01 Urine pH 5.0 (4.5-7.5) 02/07/23 21:01 Ur Specific [place] 1.017 (1.000-1.030) 02/07/23 21:01 Urine Protein Negative (Negative) 02/07/23 21:01 Urine Glucose (UA) Negative (Negative) 02/07/23 21:01 Urine Ketones 3+ (Negative) H 02/07/23 21:01 Urine Nitrite Negative (Negative) 02/07/23 21:01 Ur Leukocyte Esterase Negative (Negative) 02/07/23 21:01 Electrocardiogram Date: 02/07/23 Findings: + NSR @
[2023-02-08] MEDS ORDERED: LIDOCAINE 2% 2 ML VIAL/AMP(20MG/ML) INFIL ONE (11:29)
[2023-02-08] MEDS ORDERED: fentaNYL citrate PF 100 MCG/2 ML VIAL ONE ×2 (11:29→13:38)
[2023-02-08] MEDS ORDERED: MIDAZOLAM HCL 1 MG/ML 2ML VIAL ONE (11:29)
[2023-02-08] MEDS ORDERED: GLYCOPYRROLATE 0.2 MG/ML VIAL ONE (11:29)
[2023-02-08] MEDS ORDERED: NEOSTIGMINE METHYLSULFATE 1 MG/ML 10ML VIAL ONE (11:29)
[2023-02-08] MEDS ORDERED: DEXAMETHASONE SOD INJ 4 MG/ML VIAL ONE (11:29)
[2023-02-08] MEDS ORDERED: ROCURONIUM BROMIDE 10 MG/ML 5 ML VIAL IV ONE (11:29)
[2023-02-08] MEDS ORDERED: ONDANSETRON INJ 2 MG/ML 2 ML VIAL ONE (11:29)
[2023-02-08] MEDS ORDERED: PROPOFOL IV EMULSION 10 MG/ML 20 ML VIAL IV ONE (11:29)
[2023-02-08] MEDS ORDERED: ceFAZolin 2000MG 2,000 MG/15 ML SYR IV ONE (11:46)
[2023-02-08] MEDS ORDERED: ceFAZolin 2,000 MG/15 ML IV PUSH IV ONE (11:48)
[2023-02-08] MEDS ORDERED: BUPIVACAINE/EPINEPHRINE 0.5% MPF 1:200,000 30 ML VIAL ONE (11:50)
[2023-02-08] MEDS ORDERED: SUGAMMADEX SODIUM 200 MG/2 ML VIAL IV ONE (12:55)
[2023-02-08] MEDS ORDERED: ACETAMINOPHEN 325 MG TAB PO PRN (12:59)
[2023-02-08] MEDS ORDERED: oxyCODONE HCL IR 5 MG TAB (IMMEDIATE RELEASE) PO PRN ×2 (13:02)
--- NOTE | 2023-02-08 13:06 | Operative Report ---
PG Post Operative Report Pre & Post Diagnosis Operation Date: 02/08/23 12:15 Pre-Op Diagnosis: Abdominal Pain Post-Op Diagnosis: Acute cholecystitis I identified the patient and participated in the time-out.: Yes Procedure Operation Date: 02/08/23 12:15 Actual Procedures p Laparoscopic Cholecystectomy(Not Applicable) - Phoenix Wilhelm DO Surgeon Phoenix Wilhelm DO Blood Bank Calendar Control Clerk rigo pearce Estimated Blood Loss 10 Findings Consistent with Post-Op Diagnosis Specimens gallbladder Description of Procedure After informed consent was obtained the patient was taken to the operating room and placed in the supine position. After successful intubation the abdomen was sterilely prepped and draped in usual fashion. A periumbilical incision was made with an 11 blade scalpel and carried down through the soft tissue using electrocautery. The anterior rectus fascia was opened using electrocautery and 2 #0 Vicryl stay sutures were placed. The peritoneum was elevated with hemostats and incised under direct vision using Metzenbaum scissors. A finger sweep was performed and a 12 mm Odell trocar was placed. The abdomen was insufflated to 18 mmHg. The laparoscope was inserted and the abdomen was examined in 360. The gallbladder was acutely inflammed...however No other gross abnormalities were identified. A subxiphoid 5 mm port and 2 right upper quadrant 5 mm ports were placed under direct vision. The patient was placed in a reverse Trendelenburg position and slightly airplaned to the left. The gallbladder was grasped and elevated superiorly and laterally. A [place] dissector was used to take down adhesions around the neck of the gallbladder. The cystic duct was identified and skeletonized. It was clipped twice proximally and once distally and transected using a laparoscopic scissor. In similar fashion the cystic artery was identified and skeletonized clipped and divided. The gallbladder was removed from the gallbladder fossa with electrocautery. It was placed into an Endo Catch bag. Thorough irrigation was performed. At the end of the procedure there was adequate hemostasis and no evidence of any bile leaks. A final look around the abdomen showed no other abnormalities. The gallbladder and trochars were all removed and the abdomen was desufflated. The fascia of the camera port was closed using 0 Vicryl in a [id number] fashion. All the wounds were irrigated and closed using 4-0 Monocryl. Marcaine was injected around them for postoperative analgesia and skin glue used as a dressing. The patient was awaken extubated and transferred to recovery in stable condition. My GAGE DESIGNER retail assistant manager was present throughout the entire case... helped with prepping the patient. With exposure for trocar placement, as well as retracted the gallbladder throughout the case and also assisted with wound closure and dressing placement. I attest to the content of the Intraoperative Record and any orders documented therein. Any exceptions are noted below.
[2023-02-08] MEDS ORDERED: ePHEDrine sulfate 50 MG/ML AMP IV PRN (13:36)
[2023-02-08] MEDS ORDERED: PROMETHAZINE HCL 12.5 MG in SODIUM CHLORIDE 0.9% 50 ML IV PRN (13:36)
[2023-02-08] MEDS ORDERED: ATROPINE SULFATE 0.1 MG/ML 10ML SYR IV PRN (13:36)
[2023-02-08] MEDS: fentaNYL citrate PF 100 MCG/2 ML VIAL IV PRN ×4 (13:40→13:56)
--- NOTE | 2023-02-08 14:00 | Anesthesiology Progress Note ---
Date of Service February 08, 2023 Anesthesia Post Procedure Vital Signs Vital Signs: Temp Pulse Pulse Pulse Resp BP BP 02/08/23 13:45 77 14 164/106 H 02/08/23 13:35 81 16 151/81 H 02/08/23 13:25 77 22 180/97 H 02/08/23 13:15 83 20 180/96 H 02/08/23 13:07 36.0 C L 86 12 182/98 H 02/08/23 11:24 36.5 C 83 20 178/91 H 02/08/23 11:00 76 20 167/84 H 02/08/23 10:00 76 16 133/85 02/08/23 08:51 83 02/08/23 08:30 77 19 176/100 H 02/08/23 08:00 79 17 157/100 H 02/08/23 07:40 78 02/08/23 07:38 77 16 149/88 H 02/08/23 06:00 74 17 138/74 02/08/23 06:00 76 02/08/23 05:00 76 18 145/80 H 02/08/23 04:00 74 20 113/79 02/08/23 02:44 79 18 147/96 H 02/08/23 00:45 86 16 158/94 H 02/07/23 23:06 92 H 18 142/88 H 02/07/23 18:57 36.5 C 95 H 18 156/95 H Pulse Ox O2 Del Method O2 Flow Rate 02/08/23 13:45 95 Room Air 02/08/23 13:35 93 Room Air 02/08/23 13:25 97 Oxymask 4 02/08/23 13:15 95 Oxymask 6 02/08/23 13:07 98 Oxymask 6 02/08/23 11:24 95 Room Air 02/08/23 11:00 95 02/08/23 10:00 95 02/08/23 08:51 02/08/23 08:30 95 02/08/23 08:00 95 02/08/23 07:40 95 Room Air 02/08/23 07:38 96 02/08/23 06:00 94 Room Air 02/08/23 06:00 02/08/23 05:00 98 Room Air 02/08/23 04:00 92 Room Air 02/08/23 02:44 97 Room Air 02/08/23 00:45 98 Room Air 02/07/23 23:06 97 Room Air 02/07/23 18:57 97 Room Air Pain Intensity Abdomen: Pain Intensity: 5 Transfer of Care Handoff Completed per policy Notes Mental Status: alert / awake / arousable Patient Amnestic to Procedure: Yes Nausea / Vomiting: adequately controlled Pain: adequately controlled Airway Patency, RR, SpO2: stable & adequate BP & HR: stable & adequate Hydration State: stable & adequate Anesthetic Complications: no major complications apparent and Pt Satisfied with anesthetic care
--- NOTE | 2023-02-08 17:31 | Electrocardiogram Report ---
Test Reason : Blood Pressure : / mmHG Vent. Rate : 090 BPM Atrial Rate : 090 BPM P-R Int : 162 ms QRS Dur : 076 ms QT Int : 350 ms P-R-T Axes : 067 059 060 degrees QTc Int : 428 ms Normal sinus rhythm Possible Left atrial enlargement Borderline ECG No previous ECGs available Confirmed by Rock Slade ([id number]) on 02/08/2023 5:31:03 PM Referred By: REFERRED SELF Confirmed By:Ben Slade
== END 2023-02-08 15:37 | disposition home or self-care (01) ==
LOC: EDINP 18:30 → ED 18:30 → EDINP 02-08 12:00